=== PATIENT | female | born 1980 | race Caucasian/White ===

== ENCOUNTER 2018-10-01 08:23 | Inpatient (IN) | payer MEDICARE, MEDICAID ==
--- NOTE | 2018-09-28 11:58 | HP ---
AMENDED REPORT NOW INCLUDES COSIGNER DESIGNATION PREOPERATIVE HISTORY AND PHYSICAL: DATE OF ADMISSION/SURGERY: 10/01/18 DATE OF OFFICE VISIT: 09/28/18 ATTENDING SURGEON: Dr. Flash Larkin.* (DICTATED BY JAVIER LUCAS) PROCEDURE: Right total hip replacement. HISTORY OF PRESENT ILLNESS: Jackelin is a 38-year-old female who presents to the clinic with avascular necrosis of the bilateral hips, right greater than left. She has failed conservative measures and has therefore agreed to undergo a right total hip replacement with Dr. Larkin on 10/01/18. PAST MEDICAL HISTORY: Ovarian cancer with mets to the brain, asthma, high cholesterol, anxiety, depression, avascular necrosis of bilateral hips, delusional disorder, obesity. PAST SURGICAL HISTORY: Brain tumor resection [place] [address] Ibarra and a gamma knife radiation in 2014 and 2018 as well as a paracentesis. The patient denies prior complications with anesthesia. MEDICATIONS: 1. Zofran as needed. 2. Lynparza 150 mg twice a day. 3. Morphine sulfate 15 mg one half tab daily. 4. Meloxicam 7.5 mg one daily as needed. 5. Quetiapine fumarate 300 mg one by mouth every day. 6. Docusate sodium 100 mg one by mouth every 12 hours as needed for constipation. ALLERGIES: LATEX, NICKEL FAMILY HISTORY: Positive for AMI in her father and cancer. SOCIAL HISTORY: She is . She lives alone. She is a former smoker. She smoked occasionally from age 19 to 36. She reports occasional alcohol consumption. She denies illegal drug use. REVIEW OF SYSTEMS: A 14-point review of systems was reviewed with the patient. Positive for current complaint, otherwise negative. Denies fever, chills, chest pain, shortness of breath, history of DVT or PE, history of bleeding disorder. PHYSICAL EXAMINATION GENERAL: A 38-year-old, well-developed, well-nourished female, in no acute distress. VITAL SIGNS: Height 72, weight 246, pulse 82, blood pressure 122/68, respiratory rate 18, BMI 33.4. HEENT: Normocephalic, atraumatic. PERRLA. Throat clear. NECK: Supple. PULMONARY: Lungs are clear to auscultation bilaterally. No wheezing, rhonchi, or rales. CARDIO: Regular rate and rhythm. S1, S2. No murmurs, gallops, or rubs. No edema. ABDOMEN: Positive bowel sounds. Soft, nontender. NEUROLOGIC: Alert and oriented x3. Cranial nerves grossly intact. MUSCULOSKELETAL: Right lower extremity: Skin is intact. No warmth or erythema. Tenderness over the groin and the greater trochanteric area. Pain with hip flexion, internal rotation and external rotation, pain with log roll. Calf soft, nontender, +5/5 strength to ankle dorsiflexion and plantar flexion. +2 DP pulse. Sensation is intact to light touch distally. STUDIES: Multi-view x-rays revealed avascular necrosis of the bilateral hips that is progressing. ASSESSMENT AND PLAN: The patient is scheduled to undergo a right total hip replacement with Dr. Larkin on 10/01/18 for treatment of avascular necrosis of the right hip. She does have a noted NICKEL allergy, which Dr. Larkin is aware of and ceramic head will likely be used to avoid the allergy. She will follow up 4 weeks postop for followup and suture removal. JAVIER LUCAS [id number] #: [id number] [facility]
[~2018-10-01 08:23] MED LIST: Buffered Lidocaine 1% SYRIN* 1 ML/SYRINGE INTRADERM ONE; Lactated Ringers 1000 ML Bag* 1,000 ML IV SCH
--- OUTSIDE RECORDS SUMMARY | 2018-10-01 08:27 | XMS REPORT | Continuity of Care Document ---
:1980 External Reference #:[id number] Author Name Ayana Langley Care Team Providers Name Role Phone Vish Carrillo MD Primary Care Physician Unavailable Payers Date Identification Numbers Payment Provider Subscriber Policy Number: [id number] Medicare Anika Xie PayID: [id number] [address] [place] [address] Policy Number: [id number] Medicaid Anika Xie PayID: [id number] [address] [place] [address] PayID: [id number] Medicare D - Drug Plan Anika Xie Expires: 2015 Policy Number: [id number] Medicaid Anika Xie Group Name: 1 1 [address] PayID: [id number] [place] [address] Effective: 2015 Policy Number: [id number] [place] Anika Xie Expires: 2016 Group Name: [id number] [address] PayID: [id number] [place] [address] Advance Directives Description No Information Available Problems Date Description Provider Status Onset: 04/02/2015 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 Active Family History Date Family Member(s) Observation Comments General Heart Disease General Cancer maternal GM had ovarian CA Father due to d/t () malignagncy? Onset: (2012) Father NC Mother 78 Mother No Current Problems First Brother hx unknown First Brother 53 Second Brother 53 Second Brother No Current Problems First Sister Kidney failure? First Sister 48 Social History Type Date Description Comments Sex Unknown Marital Status Lives With Alone renting apartment Occupation Disabled ETOH Use Occasionally consumes 1 drink/week alcohol Recreational Drug Use Denies Drug Use Tobacco Use Start: Unknown Patient is a former 1/2 pack from age End: Unknown smoker 20-37 Smoking Status Reviewed: 09/28/18 Patient is a former 1/2 pack from age smoker 20-37 Exercise Type/Frequency Does not exercise Allergies, Adverse Reactions, Alerts Date Description Reaction Status Severity Comments 04/02/2015 NKDA Active 05/04/2016 Latex Active 09/28/2018 Metal Active 09/28/2018 Nickel Active Medications Medication Date Status Form Strength Qnty SIG Indications Ordering Provider Zofran Active Unknown 000 Lynparza Active Tablets 150mg twice tabs Z85.43 Rodriguez, 000 twice a day 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, 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 Morphine Active Tablets 15mg Unknown Sulfate 000 Meloxicam Active Tablets 7.5mg Patiño, 000 Yuli [facility]- Quetiapine Active Tablets 300mg Unknown Fumarate 000 Docusate Active Tablets 100mg 1 tab every 12 Unknown Sodium 000 hours as needed for constipation Seroquel Hx Tablets 50mg 1 by mouth F31.9 Unknown 000 - every night at bedtime 019 Naproxen Hx Tablets 500mg 1 tablet with Unknown 000 - food by mouth twice a day 019 Tramadol HCL Hx Tablets 50mg 1-2 tablets Unknown 000 - every 6 hours as needed 019 Medications Administered in Office Medication Date Status Form Strength Qnty SIG Indications Ordering Provider No Injection Administered Injection Kwaku Silva MD No Injection Administered Injection MD Julio Wright Administered Injection Kwaku Pennington 40MG MD Julio Fan Administered Injection Kwaku Pennington 40MG Ted Silva MD Immunizations CPT Code Status Date Vaccine Reaction Lot # [id number] Given 05/09/2018 Influenza Virus Vaccine, patient tollerated shot [id number] Quadrivalent, Split, well. No immediate Preservative Free reaction. [id number] Given 09/06/2017 Tdap - [id number] Tetanus/Diptheria/Acellular Pertussis [id number] Given 09/06/2017 Influenza Virus Vaccine, [id number] Quadrivalent, Split, Preservative Free Vital Signs Date Vital Result Comment 09/28/2018 9:23am Height 72 inches 6'0" Weight 246.00 lb Heart Rate 82 /min BP Systolic 122 mmHg BP Diastolic 68 mmHg Respiratory Rate 18 /min Pain Level 3 BMI (Body Mass Index) 33.4 kg/m2 09/19/2018 1:04pm Height 72 inches 6'0" Weight 246.38 lb Heart Rate 92 /min BP Systolic 116 mmHg BP Diastolic 80 mmHg Body Temperature 98.8 F O2 % BldC Oximetry 97 % BMI (Body Mass Index) 33.4 kg/m2 09/05/2018 12:53pm Height 72 inches 6'0" Weight 252.00 lb Heart Rate 88 /min Respiratory Rate 18 /min Pain Level 3 BMI (Body Mass Index) 34.2 kg/m2 07/11/2018 3:16pm Height 72 inches 6'0" Weight 252.00 lb Heart Rate 89 /min BP Systolic 112 mmHg BP Diastolic 82 mmHg O2 % BldC Oximetry 98 % BMI (Body Mass Index) 34.2 kg/m2 06/06/2018 3:08pm Heart Rate 88 /min BP Systolic 132 mmHg BP Diastolic 76 mmHg Respiratory Rate 16 /min Pain Level 4 05/09/2018 2:03pm Height 72 inches 6'0" Weight 250.25 lb Heart Rate 99 /min BP Systolic Sitting 120 mmHg BP Diastolic Sitting 80 mmHg Pain Level 98 BMI (Body Mass Index) 33.9 kg/m2 02/16/2018 3:50pm Height 72 inches 6'0" Weight 266.00 lb Heart Rate 89 /min BP Systolic Sitting 122 mmHg BP Diastolic Sitting 80 mmHg O2 % BldC Oximetry 98 % BMI (Body Mass Index) 36.1 kg/m2 12/20/2017 8:38am Height 72 inches 6'0" Weight 241.00 lb BP Systolic 124 mmHg BP Diastolic 76 mmHg Respiratory Rate 18 /min Body Temperature 97.5 F Pain Level 4 BMI (Body Mass Index) 32.7 kg/m2 12/06/2017 9:50am Height 70 inches 5'10" Weight 251.38 lb Heart Rate 94 /min BP Systolic Sitting 122 mmHg BP Diastolic Sitting 80 mmHg O2 % BldC Oximetry 97 % BMI (Body Mass Index) 36.1 kg/m2 10/04/2017 10:21am Height 70 inches 5'10" Weight 239.50 lb Heart Rate 91 /min BP Systolic 128 mmHg BP Diastolic 84 mmHg Body Temperature 99.1 F O2 % BldC Oximetry 97 % BMI (Body Mass Index) 34.4 kg/m2 09/06/2017 2:19pm Height 70 inches 5'10" Weight 247.00 lb Heart Rate 101 /min BP Systolic 125 mmHg BP Diastolic 82 mmHg Body Temperature 98.5 F O2 % BldC Oximetry 98 % BMI (Body Mass Index) 35.4 kg/m2 07/20/2016 1:26pm Height 71.5 inches 5'11.50" Weight 240.00 lb BP Systolic Sitting 112 mmHg BP Diastolic Sitting 78 mmHg Pain Level 4 BMI (Body Mass Index) 33.0 kg/m2 05/04/2016 9:11am Height 71.5 inches 5'11.50" Weight 240.00 lb Heart Rate 72 /min BP Systolic 115 mmHg BP Diastolic 78 mmHg Pain Level 4 BMI (Body Mass Index) 33.0 kg/m2 04/02/2015 11:20am Height 72 inches 6'0" Weight 218.00 lb Heart Rate 82 /min BP Systolic Sitting 124 mmHg BP Diastolic Sitting 80 mmHg Pain Level 0 BMI (Body Mass Index) 29.6 kg/m2 Results Test Date Facility Test Result H/L Range Note CBC Auto Diff 09/26/2018 [facility] White Blood 6.0 10^3/uL N 3.5-10.[address] [place] [address] [phone] Red Blood Count 4.22 10^6/uL N 4.00-5.40 Hemoglobin 12.9 g/dL N 12.0-16.0 Hematocrit 39 % N 35-47 Mean Corpuscular Volume 92 fL N 80-97 Mean Corpuscular Hemoglobin 31 pg N 27-31 Mean Corpuscular HGB Conc 33 g/dL N 31-36 Red Cell Distribution Width 14 % N 10.5-15 Platelet Count 215 10^3/uL N 150-450 Mean Platelet Volume 8.3 fL N 7.4-10.4 Abs Neutrophils 3.4 10^3/uL N 1.5-7.7 Abs Lymphocytes 2.2 10^3/uL N 1.0-4.8 Abs Monocytes 0.3 10^3/uL N 0-0.8 Abs Eosinophils 0.1 10^3/uL N 0-0.6 Abs Basophils 0 10^3/uL N 0-0.2 Abs Nucleated RBC 0 10^3/uL Granulocyte % 56.8 % Lymphocyte % 35.9 % Monocyte % 5.4 % Eosinophil % 1.3 % Basophil % 0.6 % Nucleated Red Blood Cells % 0.1 Comp Metabolic Panel 09/26/2018 [facility] Sodium 144 mmol/L N 135-[address] [place] [address] [phone] Potassium 3.9 mmol/L N 3.5-5.0 Chloride 110 mmol/L N 101-111 Co2 Carbon Dioxide 27 mmol/L N 22-32 Anion Gap 7 mmol/L N 2-11 Glucose 131 mg/dL High 70-100 Blood Urea Nitrogen 19 mg/dL N 6-24 Creatinine 0.66 mg/dL N 0.51-0.95 BUN/Creatinine Ratio 28.8 High 8-20 Calcium 9.5 mg/dL N 8.6-10.3 Total Protein 6.6 g/dL N 6.4-8.9 Albumin 3.7 g/dL N 3.2-5.2 Globulin 2.9 g/dL N 2-4 Albumin/Globulin Ratio 1.3 N 1-3 Total Bilirubin 0.20 mg/dL N 0.2-1.0 Alkaline Phosphatase 94 U/L N 34-104 Alt 14 U/L N 7-52 Ast 14 U/L N 13-39 Egfr Non- 99.7 >60 Egfr 120.6 >60 1 Laboratory test 09/26/2018 [facility] Cancer Ag 208 U/mL Abnormal <46 [address] ([address]), [place] [address] [phone] Urine Culture And 09/19/2018 [facility] Urine SEE RESULT [address] [place] [address] [phone] Type & Screen 09/19/2018 [facility] Patient A Negative [address] [place] [address] [phone] Antibody Screen NEGATIVE Urinalysis Profile 09/19/2018 [facility] Urine Color Yellow [address] [place] [address] [phone] Urine Appearance Cloudy Urine Specific Massey 1.028 N 1.010-1.030 Urine pH 5.0 N 5-9 Urine Urobilinogen Negative Negative Urine Ketones Negative Negative Urine Protein Negative Negative Urine Leukocytes Negative Negative Urine Blood Negative Negative Urine Nitrite Negative Negative Urine Bilirubin Negative Negative Urine Glucose Negative Negative Comp Metabolic Panel 09/19/2018 [facility] Sodium 141 mmol/L N 135-145 [address] [place] [address] [phone] Potassium 3.9 mmol/L N 3.5-5.0 Chloride 106 mmol/L N 101-111 Co2 Carbon Dioxide 26 mmol/L N 22-32 Anion Gap 9 mmol/L N 2-11 Glucose 91 mg/dL N 70-100 Blood Urea Nitrogen 18 mg/dL N 6-24 Creatinine 0.72 mg/dL N 0.51-0.95 BUN/Creatinine Ratio 25.0 High 8-20 Calcium 9.2 mg/dL N 8.6-10.3 Total Protein 6.3 g/dL Low 6.4-8.9 Albumin 3.8 g/dL N 3.2-5.2 Globulin 2.5 g/dL N 2-4 Albumin/Globulin Ratio 1.5 N 1-3 Total Bilirubin 0.30 mg/dL N 0.2-1.0 Alkaline Phosphatase 98 U/L N 34-104 Alt 15 U/L N 7-52 Ast 13 U/L N 13-39 Egfr Non- 90.2 >60 Egfr 109.1 >60 4 CBC Auto Diff 09/19/2018 [facility] White Blood 5.9 10^3/uL N 3.5-10.[address] [place] [address] [phone] Red Blood Count 4.11 10^6/uL N 4.00-5.40 Hemoglobin 12.8 g/dL N 12.0-16.0 Hematocrit 38 % N 35-47 Mean Corpuscular Volume 93 fL N 80-97 Mean Corpuscular Hemoglobin 31 pg N 27-31 Mean Corpuscular HGB Conc 33 g/dL N 31-36 Red Cell Distribution Width 14 % N 10.5-15 Platelet Count 218 10^3/uL N 150-450 Mean Platelet Volume 8.3 fL N 7.4-10.4 Abs Neutrophils 2.6 10^3/uL N 1.5-7.7 Abs Lymphocytes 2.7 10^3/uL N 1.0-4.8 Abs Monocytes 0.4 10^3/uL N 0-0.8 Abs Eosinophils 0.1 10^3/uL N 0-0.6 Abs Basophils 0.1 10^3/uL N 0-0.2 Abs Nucleated RBC 0 10^3/uL Granulocyte % 44.8 % Lymphocyte % 45.9 % Monocyte % 6.2 % Eosinophil % 2.1 % Basophil % 1.0 % Nucleated Red Blood Cells % 0.1 Laboratory test 09/19/2018 [facility] Partial 27.7 seconds N 26.0-36.[address] [place] [address] PTT [phone] Inr/Protime 09/19/2018 [facility] Inr 0.95 N 0.77-1.[address] [place] [address] [phone] CBC Auto Diff 08/15/2018 [facility] White Blood 5.9 10^3/uL N 3.5-10.[address] [place] [address] [phone] Red Blood Count 4.18 10^6/uL N 4.00-5.40 Hemoglobin 12.8 g/dL N 12.0-16.0 Hematocrit 38 % N 35-47 Mean Corpuscular Volume 91 fL N 80-97 Mean Corpuscular Hemoglobin 31 pg N 27-31 Mean Corpuscular HGB Conc 33 g/dL N 31-36 Red Cell Distribution Width 15 % N 10.5-15 Platelet Count 272 10^3/uL N 150-450 Mean Platelet Volume 7.9 fL N 7.4-10.4 Abs Neutrophils 3.1 10^3/uL N 1.5-7.7 Abs Lymphocytes 2.4 10^3/uL N 1.0-4.8 Abs Monocytes 0.3 10^3/uL N 0-0.8 Abs Eosinophils 0.1 10^3/uL N 0-0.6 Abs Basophils 0.1 10^3/uL N 0-0.2 Abs Nucleated RBC 0 10^3/uL Granulocyte % 51.8 % Lymphocyte % 40.1 % Monocyte % 5.5 % Eosinophil % 1.6 % Basophil % 1.0 % Nucleated Red Blood Cells % 0.1 Comp Metabolic Panel 08/15/2018 [facility] Sodium 138 mmol/L N 135-145 [address] [place] [address] [phone] Potassium 4.0 mmol/L N 3.5-5.0 Chloride 105 mmol/L N 101-111 Co2 Carbon Dioxide 27 mmol/L N 22-32 Anion Gap 6 mmol/L N 2-11 Glucose 99 mg/dL N 70-100 Blood Urea Nitrogen 24 mg/dL N 6-24 Creatinine 0.62 mg/dL N 0.51-0.95 BUN/Creatinine Ratio 38.7 High 8-20 Calcium 9.3 mg/dL N 8.6-10.3 Total Protein 6.5 g/dL N 6.4-8.9 Albumin 3.4 g/dL N 3.2-5.2 Globulin 3.1 g/dL N 2-4 Albumin/Globulin Ratio 1.1 N 1-3 Total Bilirubin 0.30 mg/dL N 0.2-1.0 Alkaline Phosphatase 110 U/L High 34-104 Alt 15 U/L N 7-52 Ast 13 U/L N 13-39 Egfr Non- 107.2 >60 Egfr 129.7 >60 5 HIV 1/2 AB 08/15/2018 [facility] HIV 1 2 Nonreactive Nonreactive 6 Evaluation 101 [facility] Antibody [place], [place] [id number] [phone] Laboratory 08/15/2018 [facility] Cancer Ag 234 U/mL Abnormal < 46 7 test finding 101 [facility] ([address]), [place] [address] S [phone] CBC Auto 07/09/2018 [facility] White 4.7 10^3/uL N 3.5-10.8 Diff 101 [facility] [place] [address] Count [phone] Red Blood Count 4.16 10^6/uL N 4.00-5.40 Hemoglobin 12.2 g/dL N 12.0-16.0 Hematocrit 37 % N 35-47 Mean Corpuscular Volume 89 fL N 80-97 Mean Corpuscular Hemoglobin 30 pg N 27-31 Mean Corpuscular HGB Conc 33 g/dL N 31-36 Red Cell Distribution Width 16 % High 10.5-15 Platelet Count 225 10^3/uL N 150-450 Mean Platelet Volume 7.8 fL N 7.4-10.4 Abs Neutrophils 2.4 10^3/uL N 1.5-7.7 Abs Lymphocytes 1.9 10^3/uL N 1.0-4.8 Abs Monocytes 0.2 10^3/uL N 0-0.8 Abs Eosinophils 0.1 10^3/uL N 0-0.6 Abs Basophils 0 10^3/uL N 0-0.2 Abs Nucleated RBC 0 10^3/uL Granulocyte % 51.7 % Lymphocyte % 40.5 % Monocyte % 4.8 % Eosinophil % 2.4 % Basophil % 0.6 % Nucleated Red Blood Cells % 0.1 Laboratory test 07/09/2018 [facility] [place] [address] 192.2 U/mL High 0 -35 [address] ([place] [address] Cancer Ag) [phone] Comp Metabolic 07/09/2018 [facility] Sodium 141 mmol/L N 135- [address] [place] [address] [phone] Potassium 3.8 mmol/L N 3.5-5.0 Chloride 106 mmol/L N 101-111 Co2 Carbon Dioxide 28 mmol/L N 22-32 Anion Gap 7 mmol/L N 2-11 Glucose 112 mg/dL High 70-100 Blood Urea Nitrogen 21 mg/dL N 6-24 Creatinine 0.81 mg/dL N 0.51-0.95 BUN/Creatinine Ratio 25.9 High 8-20 Calcium 9.3 mg/dL N 8.6-10.3 Total Protein 6.2 g/dL Low 6.4-8.9 Albumin 3.5 g/dL N 3.2-5.2 Globulin 2.7 g/dL N 2-4 Albumin/Globulin Ratio 1.3 N 1-3 Total Bilirubin 0.40 mg/dL N 0.2-1.0 Alkaline Phosphatase 95 U/L N 34-104 Alt 15 U/L N 7-52 Ast 14 U/L N 13-39 Egfr Non- 78.7 >60 Egfr 95.2 >60 9 CBC Auto Diff 06/15/2018 [facility] White Blood 6.8 10^3/uL N 3.5-10.[address] [place] [address] [phone] Red Blood Count 4.46 10^6/uL N 4.00-5.40 Hemoglobin 13.4 g/dL N 12.0-16.0 Hematocrit 39 % N 35-47 Mean Corpuscular Volume 87 fL N 80-97 Mean Corpuscular Hemoglobin 30 pg N 27-31 Mean Corpuscular HGB Conc 35 g/dL N 31-36 Red Cell Distribution Width 15 % N 10.5-15 Platelet Count 248 10^3/uL N 150-450 Mean Platelet Volume 7.8 fL N 7.4-10.4 Abs Neutrophils 3.3 10^3/uL N 1.5-7.7 Abs Lymphocytes 2.9 10^3/uL N 1.0-4.8 Abs Monocytes 0.4 10^3/uL N 0-0.8 Abs Eosinophils 0.1 10^3/uL N 0-0.6 Abs Basophils 0.1 10^3/uL N 0-0.2 Abs Nucleated RBC 0 10^3/uL Granulocyte % 47.8 % N 38-83 Lymphocyte % 42.6 % N 25-47 Monocyte % 6.4 % N 0-7 Eosinophil % 2.2 % N 0-6 Basophil % 1.0 % N 0-2 Nucleated Red Blood Cells % 0.2 Comp Metabolic Panel 06/15/2018 [facility] Sodium 141 mmol/L N 135-[address] [place] [address] [phone] Potassium 4.3 mmol/L N 3.5-5.0 Chloride 105 mmol/L N 101-111 Co2 Carbon Dioxide 27 mmol/L N 22-32 Anion Gap 9 mmol/L N 2-11 Glucose 97 mg/dL N 70-100 Blood Urea Nitrogen 15 mg/dL N 6-24 Creatinine 0.71 mg/dL N 0.51-0.95 BUN/Creatinine Ratio 21.1 High 8-20 Calcium 9.5 mg/dL N 8.6-10.3 Total Protein 6.7 g/dL N 6.4-8.9 Albumin 3.7 g/dL N 3.2-5.2 Globulin 3.0 g/dL N 2-4 Albumin/Globulin Ratio 1.2 N 1-3 Total Bilirubin 0.30 mg/dL N 0.2-1.0 Alkaline Phosphatase 109 U/L High 34-104 Alt 16 U/L N 7-52 Ast 14 U/L N 13-39 Egfr Non- 91.6 >60 Egfr 110.9 >60 10 Laboratory test 06/15/2018 [facility] [place] [address] 211.5 U/mL High 0 -35 [address] ([place] [address] Cancer Ag) [phone] CBC Auto Diff 04/10/2018 [facility] White Blood 6.6 N 3.5- 10.[address] Count 10^3/[place] [address] [phone] Red Blood Count 4.24 10^6/uL N 4.00-5.40 Hemoglobin 12.8 g/dL N 12.0-16.0 Hematocrit 38 % N 35-47 Mean Corpuscular Volume 89 fL N 80-97 Mean Corpuscular Hemoglobin 30 pg N 27-31 Mean Corpuscular HGB Conc 34 g/dL N 31-36 Red Cell Distribution Width 13 % N 10.5-15 Platelet Count 268 10^3/uL N 150-450 Mean Platelet Volume 8.2 um3 N 7.4-10.4 Abs Neutrophils 3.8 10^3/uL N 1.5-7.7 Abs Lymphocytes 2.2 10^3/uL N 1.0-4.8 Abs Monocytes 0.5 10^3/uL N 0-0.8 Abs Eosinophils 0.1 10^3/uL N 0-0.6 Abs Basophils 0.1 10^3/uL N 0-0.2 Abs Nucleated RBC 0 10^3/uL Granulocyte % 56.8 % N 38-83 Lymphocyte % 32.5 % N 25-47 Monocyte % 7.9 % High 0-7 Eosinophil % 2.0 % N 0-6 Basophil % 0.8 % N 0-2 Nucleated Red Blood Cells % 0.4 Comp Metabolic Panel 04/10/2018 [facility] Sodium 138 mmol/L N 135-[address] [place] [address] [phone] Potassium 3.8 mmol/L N 3.5-5.0 Chloride 102 mmol/L N 101-111 Co2 Carbon Dioxide 28 mmol/L N 22-32 Anion Gap 8 mmol/L N 2-11 Glucose 127 mg/dL High 70-100 Blood Urea Nitrogen 20 mg/dL N 6-24 Creatinine 0.69 mg/dL N 0.51-0.95 BUN/Creatinine Ratio 29.0 High 8-20 Calcium 9.9 mg/dL N 8.6-10.3 Total Protein 6.8 g/dL N 6.4-8.9 Albumin 3.7 g/dL N 3.2-5.2 Globulin 3.1 g/dL N 2-4 Albumin/Globulin Ratio 1.2 N 1-3 Total Bilirubin 0.40 mg/dL N 0.2-1.0 Alkaline Phosphatase 81 U/L N 34-104 Alt 13 U/L N 7-52 Ast 14 U/L N 13-39 Egfr Non- 94.7 >60 Egfr 114.6 >60 12 Laboratory test 04/10/2018 [facility] [place] 125 209.3 U/mL High 0 -35 [address] ([place]var[place] [id number] Cancer Ag) [phone] CBC Auto Diff 03/30/2018 [facility] White Blood 5.2 N 3.5- 10.[address] Count 10^3/[place] [address] [phone] Red Blood Count 4.11 10^6/uL N 4.00-5.40 Hemoglobin 12.5 g/dL N 12.0-16.0 Hematocrit 37 % N 35-47 Mean Corpuscular Volume 89 fL N 80-97 Mean Corpuscular Hemoglobin 30 pg N 27-31 Mean Corpuscular HGB Conc 34 g/dL N 31-36 Red Cell Distribution Width 14 % N 10.5-15 Platelet Count 213 10^3/uL N 150-450 Mean Platelet Volume 8.4 um3 N 7.4-10.4 Abs Neutrophils 2.8 10^3/uL N 1.5-7.7 Abs Lymphocytes 1.8 10^3/uL N 1.0-4.8 Abs Monocytes 0.4 10^3/uL N 0-0.8 Abs Eosinophils 0.1 10^3/uL N 0-0.6 Abs Basophils 0 10^3/uL N 0-0.2 Abs Nucleated RBC 0 10^3/uL Granulocyte % 53.8 % N 38-83 Lymphocyte % 34.3 % N 25-47 Monocyte % 8.3 % High 0-7 Eosinophil % 2.7 % N 0-6 Basophil % 0.9 % N 0-2 Nucleated Red Blood Cells % 0.1 Comp Metabolic Panel 03/30/2018 [facility] Sodium 138 mmol/L N 135-[address] [place] [address] [phone] Potassium 3.9 mmol/L N 3.5-5.0 Chloride 104 mmol/L N 101-111 Co2 Carbon Dioxide 27 mmol/L N 22-32 Anion Gap 7 mmol/L N 2-11 Glucose 113 mg/dL High 70-100 Blood Urea Nitrogen 12 mg/dL N 6-24 Creatinine 0.76 mg/dL N 0.51-0.95 BUN/Creatinine Ratio 15.8 N 8-20 Calcium 9.0 mg/dL N 8.6-10.3 Total Protein 5.9 g/dL Low 6.4-8.9 Albumin 3.5 g/dL N 3.2-5.2 Globulin 2.4 g/dL N 2-4 Albumin/Globulin Ratio 1.5 N 1-3 Total Bilirubin 0.50 mg/dL N 0.2-1.0 Alkaline Phosphatase 80 U/L N 34-104 Alt 20 U/L N 7-52 Ast 19 U/L N 13-39 Egfr Non- 84.7 >60 Egfr 102.5 >60 14 Laboratory test 03/30/2018 [facility] [place] 125 164.3 U/mL High 0 -35 [address] ([place] [address] Cancer Ag) [phone] CBC Auto Diff 01/19/2018 [facility] White Blood 8.6 N 3.5- 10.[address] Count 10^3/[place] [address] [phone] Red Blood Count 4.17 10^6/uL N 4.00-5.40 Hemoglobin 13.2 g/dL N 12.0-16.0 Hematocrit 40 % N 35-47 Mean Corpuscular Volume 95 fL N 80-97 Mean Corpuscular Hemoglobin 32 pg High 27-31 Mean Corpuscular HGB Conc 33 g/dL N 31-36 Red Cell Distribution Width 16 % High 10.5-15 Platelet Count 222 10^3/uL N 150-450 Mean Platelet Volume 7.1 um3 Low 7.4-10.4 Abs Neutrophils 6.1 10^3/uL N 1.5-7.7 Abs Lymphocytes 2.2 10^3/uL N 1.0-4.8 Abs Monocytes 0.3 10^3/uL N 0-0.8 Abs Eosinophils 0 10^3/uL N 0-0.6 Abs Basophils 0.1 10^3/uL N 0-0.2 Abs Nucleated RBC 0 10^3/uL Granulocyte % 70.7 % N 38-83 Lymphocyte % 25.4 % N 25-47 Monocyte % 3.1 % N 0-7 Eosinophil % 0.2 % N 0-6 Basophil % 0.6 % N 0-2 Nucleated Red Blood Cells % 0.1 Laboratory test 01/19/2018 [facility] [place] 125 176.3 U/mL High 0 -35 [address] ([place] [address] Cancer Ag) [phone] Comp Metabolic 01/19/2018 [facility] Sodium 140 mmol/L N 135- [address] [place], [place] [id number] [phone] Potassium 4.5 mmol/L N 3.5-5.0 Chloride 106 mmol/L N 101-111 Co2 Carbon Dioxide 26 mmol/L N 22-32 Anion Gap 8 mmol/L N 2-11 Glucose 123 mg/dL High 70-100 Blood Urea Nitrogen 31 mg/dL High 6-24 Creatinine 0.70 mg/dL N 0.51-0.95 BUN/Creatinine Ratio 44.3 High 8-20 Calcium 9.2 mg/dL N 8.6-10.3 Total Protein 6.6 g/dL N 6.4-8.9 Albumin 3.5 g/dL N 3.2-5.2 Globulin 3.1 g/dL N 2-4 Albumin/Globulin Ratio 1.1 N 1-3 Total Bilirubin 0.30 mg/dL N 0.2-1.0 Alkaline Phosphatase 65 U/L N 34-104 Alt 23 U/L N 7-52 Ast 11 U/L Low 13-39 Egfr Non- 93.2 >60 Egfr 112.7 >60 17 Comp Metabolic Panel 11/13/2017 [facility] Sodium 138 mmol/L Low 139-[address] [place] [address] [phone] Potassium 4.2 mmol/L N 3.5-5.0 Chloride 104 mmol/L N 101-111 Co2 Carbon Dioxide 28 mmol/L N 22-32 Anion Gap 6 mmol/L N 2-11 Glucose 96 mg/dL N 70-100 Blood Urea Nitrogen 17 mg/dL N 6-24 Creatinine 0.83 mg/dL N 0.51-0.95 BUN/Creatinine Ratio 20.5 High 8-20 Calcium 9.1 mg/dL N 8.6-10.3 Total Protein 6.0 g/dL Low 6.4-8.9 Albumin 3.4 g/dL N 3.2-5.2 Globulin 2.6 g/dL N 2-4 Albumin/Globulin Ratio 1.3 N 1-3 Total Bilirubin 0.30 mg/dL N 0.2-1.0 Alkaline Phosphatase 74 U/L N 34-104 Alt 18 U/L N 7-52 Ast 15 U/L N 13-39 Egfr Non- 76.9 >60 Egfr 98.9 >60 18 Laboratory test 11/13/2017 [facility] [place] 125 131.2 U/mL High 0 -35 [address] ([place] [address] Cancer Ag) [phone] CBC Auto Diff 11/13/2017 [facility] White Blood 4.9 N 3.5- 10.[address] Count 10^3/uL [place], [place] [id number] [phone] Red Blood Count 3.78 10^6/uL Low 4.0-5.4 Hemoglobin 11.6 g/dL Low 12.0-16.0 Hematocrit 35 % N 35-47 Mean Corpuscular Volume 91 fL N 80-97 Mean Corpuscular Hemoglobin 31 pg N 27-31 Mean Corpuscular HGB Conc 34 g/dL N 31-36 Red Cell Distribution Width 15 % N 10.5-15 Platelet Count 233 10^3/uL N 150-450 Mean Platelet Volume 7.8 um3 N 7.4-10.4 Abs Neutrophils 2.7 10^3/uL N 1.5-7.7 Abs Lymphocytes 1.8 10^3/uL N 1.0-4.8 Abs Monocytes 0.3 10^3/uL N 0-0.8 Abs Eosinophils 0.1 10^3/uL N 0-0.6 Abs Basophils 0 10^3/uL N 0-0.2 Abs Nucleated RBC 0 10^3/uL Granulocyte % 55.3 % N 38-83 Lymphocyte % 36.4 % N 25-47 Monocyte % 5.6 % N 0-7 Eosinophil % 1.9 % N 0-6 Basophil % 0.8 % N 0-2 Nucleated Red Blood Cells % 0.1 Lipid Profile 09/12/2017 [facility] Triglycerides 192 mg/dL 20 (Trig/Chol/HDL) [address] [place] [address] [phone] Cholesterol 214 mg/dL 21 HDL Cholesterol 51.9 mg/dL 22 LDL Cholesterol 124 mg/dL 23 Comp Metabolic Panel 09/12/2017 [facility] Sodium 138 mmol/L N 133-[address] [place] [address] [phone] Potassium 4.3 mmol/L N 3.5-5.0 Chloride 105 mmol/L N 101-111 Co2 Carbon Dioxide 24 mmol/L N 22-32 Anion Gap 9 mmol/L N 2-11 Glucose 88 mg/dL N 70-100 Blood Urea Nitrogen 16 mg/dL N 6-24 Creatinine 0.76 mg/dL N 0.51-0.95 BUN/Creatinine Ratio 21.1 High 8-20 Calcium 9.4 mg/dL N 8.6-10.3 Total Protein 6.2 g/dL Low 6.4-8.9 Albumin 3.7 g/dL N 3.2-5.2 Globulin 2.5 g/dL N 2-4 Albumin/Globulin Ratio 1.5 N 1-3 Total Bilirubin 0.40 mg/dL N 0.2-1.0 Alkaline Phosphatase 81 U/L N 34-104 Alt 18 U/L N 7-52 Ast 18 U/L N 13-39 Egfr Non- 85.2 >60 Egfr 109.5 >60 24 CBC Auto Diff 09/12/2017 [facility] White Blood 5.9 10^3/uL N 3.5-10.[address] [place] [address] [phone] Red Blood Count 4.01 10^6/uL N 4.0-5.4 Hemoglobin 12.5 g/dL N 12.0-16.0 Hematocrit 36 % N 35-47 Mean Corpuscular Volume 91 fL N 80-97 Mean Corpuscular Hemoglobin 31 pg N 27-31 Mean Corpuscular HGB Conc 34 g/dL N 31-36 Red Cell Distribution Width 15 % N 10.5-15 Platelet Count 254 10^3/uL N 150-450 Mean Platelet Volume 8 um3 N 7.4-10.4 Abs Neutrophils 2.6 10^3/uL N 1.5-7.7 Abs Lymphocytes 2.7 10^3/uL N 1.0-4.8 Abs Monocytes 0.4 10^3/uL N 0-0.8 Abs Eosinophils 0.1 10^3/uL N 0-0.6 Abs Basophils 0.1 10^3/uL N 0-0.2 Abs Nucleated RBC 0 10^3/uL Granulocyte % 44.0 % N 38-83 Lymphocyte % 46.1 % N 25-47 Monocyte % 6.7 % N 1-9 Eosinophil % 2.3 % N 0-6 Basophil % 0.9 % N 0-2 Nucleated Red Blood Cells % 0.1 Laboratory test 09/12/2017 [facility] TSH (Thyroid 3.77 mcIU/mL N 0.34-5.[address] Stim Horm) [place] [address] [phone] Vitamin B12 And 09/12/2017 [facility] Vitamin B12 408 pg/mL N 180-914 25 Folate Serum [address] [place] [address] [phone] Folic Acid (Folate) 18.14 ng/mL >3.99 1 Because ethnic data is not always readily available, this report includes an eGFR for both -Americans and non- Americans. The National Kidney Disease Education Program (NKDEP) does not endorse the use of the MDRD equation for patients that are not between the ages of 18 and 70, are , have extremes of body size, muscle mass, or nutritional status, or are non- or non-. According to the National Kidney Foundation, irrespective of diagnosis, the stage of the disease is based on the level of kidney function: Stage Description GFR(mL/min/1.73 m(2)) 1 Kidney damage with normal or decreased GFR 90 2 Kidney damage with mild decrease in GFR 60-89 3 Moderate decrease in GFR 30-59 4 Severe decrease in GFR 15-29 5 Kidney failure <15 (or dialysis) 2 ADDITIONAL INFORMATION The testing method is an electrochemiluminescence assay manufactured by [employer] and performed on the Lev system. Values obtained with different assay methods or kits may be different and cannot be used interchangeably. Test results cannot be interpreted as absolute evidence for the presence or absence of malignant disease. Test Performed by: [facility] [employer] [address] [place] [address] 3 SEE RESULT BELOW Name: ANIKA XIE : [address]: Hamilton Ochoa NP Acct: [id number] Unit: [id number] AGE: 38 Location: LAB Re09/19/18 SEX: F Status: REG REF SPEC: [id number] KONRAD: 09/19/18-[address]: Flash Larkin MD REQ: [id number] RECD: 09/19/18029 STATUS: NAOMI FISHER DR: Hamilton Ochoa 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 _ SOURCE: URINE SPDESC: ORDERED: Urine Culture QUERIES: Urine Source: Clean Catch Procedure Result Reported Site Urine Culture Final 09/21/18- 1208 ML No growth of clinically significant organisms * ML - Main Lab . END OF REPORT DEPARTMENT OF PATHOLOGY, [address] [place] [address] Michael Cardona M.D. Director [facility] # [id number] 4 Because ethnic data is not always readily available, this report includes an eGFR for both -Americans and non- Americans. The National Kidney Disease Education Program (NKDEP) does not endorse the use of the MDRD equation for patients that are not between the ages of 18 and 70, are , have extremes of body size, muscle mass, or nutritional status, or are non- or non-. According to the National Kidney Foundation, irrespective of diagnosis, the stage of the disease is based on the level of kidney function: Stage Description GFR(mL/min/1.73 m(2)) 1 Kidney damage with normal or decreased GFR 90 2 Kidney damage with mild decrease in GFR 60-89 3 Moderate decrease in GFR 30-59 4 Severe decrease in GFR 15-29 5 Kidney failure <15 (or dialysis) 5 Because ethnic data is not always readily available, this report includes an eGFR for both -Americans and non- Americans. The National Kidney Disease Education Program (NKDEP) does not endorse the use of the MDRD equation for patients that are not between the ages of 18 and 70, are , have extremes of body size, muscle mass, or nutritional status, or are non- or non-. According to the National Kidney Foundation, irrespective of diagnosis, the stage of the disease is based on the level of kidney function: Stage Description GFR(mL/min/1.73 m(2)) 1 Kidney damage with normal or decreased GFR 90 2 Kidney damage with mild decrease in GFR 60-89 3 Moderate decrease in GFR 30-59 4 Severe decrease in GFR 15-29 5 Kidney failure <15 (or dialysis) 6 It is recognized that currently available assays for the detection of antibodies to HIV-1 and/or HIV-2 may not detect all infected individuals. HIV antibodies may be undetectable in some stages of the infection and in some clinical conditions. The performance of this assay has not been established for populations of infants or children. Assayed by Chemiluminescence Microparticle Immunoassay on the Siemens Advia Centaur CP. Values obtained with different methods or kits cannot be used interchangeably.The diagnostic specificity of the [employer] Centaur 1/O/2 Enhanced assay in the low risk population was 99.90% (6052/6058) with a 95% confidence interval of 99.78 to 99.96%. 7 ADDITIONAL INFORMATION The testing method is an electrochemiluminescence assay manufactured by [employer] and performed on the Lev system. Values obtained with different assay methods or kits may be different and cannot be used interchangeably. Test results cannot be interpreted as absolute evidence for the presence or absence of malignant disease. Test Performed by: [facility] [address] [place] [address] 8 Instrument used is [employer] DXI 600. The assay is a two-site immunoenzymatic "sandwich" assay. Do not interpret CA125 levels as absolute evidence of the presence or the absence of malignant disease. Use in conjunction with information from the clinical evaluation of the patient and other diagnostic procedures. Values obtained with different assay methods cannot be used interchangeably. 9 Because ethnic data is not always readily available, this report includes an eGFR for both -Americans and non- Americans. The National Kidney Disease Education Program (NKDEP) does not endorse the use of the MDRD equation for patients that are not between the ages of 18 and 70, are , have extremes of body size, muscle mass, or nutritional status, or are non- or non-. According to the National Kidney Foundation, irrespective of diagnosis, the stage of the disease is based on the level of kidney function: Stage Description GFR(mL/min/1.73 m(2)) 1 Kidney damage with normal or decreased GFR 90 2 Kidney damage with mild decrease in GFR 60-89 3 Moderate decrease in GFR 30-59 4 Severe decrease in GFR 15-29 5 Kidney failure <15 (or dialysis) 10 Because ethnic data is not always readily available, this report includes an eGFR for both -Americans and non- Americans. The National Kidney Disease Education Program (NKDEP) does not endorse the use of the MDRD equation for patients that are not between the ages of 18 and 70, are , have extremes of body size, muscle mass, or nutritional status, or are non- or non-. According to the National Kidney Foundation, irrespective of diagnosis, the stage of the disease is based on the level of kidney function: Stage Description GFR(mL/min/1.73 m(2)) 1 Kidney damage with normal or decreased GFR 90 2 Kidney damage with mild decrease in GFR 60-89 3 Moderate decrease in GFR 30-59 4 Severe decrease in GFR 15-29 5 Kidney failure <15 (or dialysis) 11 Instrument used is [employer] John DXI 600. The assay is a two-site immunoenzymatic "sandwich" assay. Do not interpret CA125 levels as absolute evidence of the presence or the absence of malignant disease. Use in conjunction with information from the clinical evaluation of the patient and other diagnostic procedures. Values obtained with different assay methods cannot be used interchangeably. 12 Because ethnic data is not always readily available, this report includes an eGFR for both -Americans and non- Americans. The National Kidney Disease Education Program (NKDEP) does not endorse the use of the MDRD equation for patients that are not between the ages of 18 and 70, are , have extremes of body size, muscle mass, or nutritional status, or are non- or non-. According to the National Kidney Foundation, irrespective of diagnosis, the stage of the disease is based on the level of kidney function: Stage Description GFR(mL/min/1.73 m(2)) 1 Kidney damage with normal or decreased GFR 90 2 Kidney damage with mild decrease in GFR 60-89 3 Moderate decrease in GFR 30-59 4 Severe decrease in GFR 15-29 5 Kidney failure <15 (or dialysis) 13 Instrument used is [employer] DXI 600. The assay is a two-site immunoenzymatic "sandwich" assay. Do not interpret CA125 levels as absolute evidence of the presence or the absence of malignant disease. Use in conjunction with information from the clinical evaluation of the patient and other diagnostic procedures. Values obtained with different assay methods cannot be used interchangeably. 14 Because ethnic data is not always readily available, this report includes an eGFR for both -Americans and non- Americans. The National Kidney Disease Education Program (NKDEP) does not endorse the use of the MDRD equation for patients that are not between the ages of 18 and 70, are , have extremes of body size, muscle mass, or nutritional status, or are non- or non-. According to the National Kidney Foundation, irrespective of diagnosis, the stage of the disease is based on the level of kidney function: Stage Description GFR(mL/min/1.73 m(2)) 1 Kidney damage with normal or decreased GFR 90 2 Kidney damage with mild decrease in GFR 60-89 3 Moderate decrease in GFR 30-59 4 Severe decrease in GFR 15-29 5 Kidney failure <15 (or dialysis) 15 Instrument used is [employer] DXI 600. The assay is a two-site immunoenzymatic "sandwich" assay. Do not interpret CA125 levels as absolute evidence of the presence or the absence of malignant disease. Use in conjunction with information from the clinical evaluation of the patient and other diagnostic procedures. Values obtained with different assay methods cannot be used interchangeably. 16 Instrument used is [employer] DXI 600. The assay is a two-site immunoenzymatic "sandwich" assay. Do not interpret CA125 levels as absolute evidence of the presence or the absence of malignant disease. Use in conjunction with information from the clinical evaluation of the patient and other diagnostic procedures. Values obtained with different assay methods cannot be used interchangeably. 17 Because ethnic data is not always readily available, this report includes an eGFR for both -Americans and non- Americans. The National Kidney Disease Education Program (NKDEP) does not endorse the use of the MDRD equation for patients that are not between the ages of 18 and 70, are , have extremes of body size, muscle mass, or nutritional status, or are non- or non-. According to the National Kidney Foundation, irrespective of diagnosis, the stage of the disease is based on the level of kidney function: Stage Description GFR(mL/min/1.73 m(2)) 1 Kidney damage with normal or decreased GFR 90 2 Kidney damage with mild decrease in GFR 60-89 3 Moderate decrease in GFR 30-59 4 Severe decrease in GFR 15-29 5 Kidney failure <15 (or dialysis) 18 Because ethnic data is not always readily available, this report includes an eGFR for both -Americans and non- Americans. The National Kidney Disease Education Program (NKDEP) does not endorse the use of the MDRD equation for patients that are not between the ages of 18 and 70, are , have extremes of body size, muscle mass, or nutritional status, or are non- or non-. According to the National Kidney Foundation, irrespective of diagnosis, the stage of the disease is based on the level of kidney function: Stage Description GFR(mL/min/1.73 m(2)) 1 Kidney damage with normal or decreased GFR 90 2 Kidney damage with mild decrease in GFR 60-89 3 Moderate decrease in GFR 30-59 4 Severe decrease in GFR 15-29 5 Kidney failure <15 (or dialysis) 19 Instrument used is [employer] John DXI 600. The assay is a two-site immunoenzymatic "sandwich" assay. Do not interpret CA125 levels as absolute evidence of the presence or the absence of malignant disease. Use in conjunction with information from the clinical evaluation of the patient and other diagnostic procedures. Values obtained with different assay methods cannot be used interchangeably. 20 Desirable: <150 Borderline High: 150-199 High: 200-499 Very High: >500 21 Desirable: <200 Borderline High: 200-239 High: >239 22 Low: <40 Desirable: 40-60 High: >60 23 Desirable: <100 Near Optimal: 100-129 Borderline High: 130-159 High: 160-189 Very High: >189 24 Because ethnic data is not always readily available, this report includes an eGFR for both -Americans and non- Americans. The National Kidney Disease Education Program (NKDEP) does not endorse the use of the MDRD equation for patients that are not between the ages of 18 and 70, are , have extremes of body size, muscle mass, or nutritional status, or are non- or non-. According to the National Kidney Foundation, irrespective of diagnosis, the stage of the disease is based on the level of kidney function: Stage Description GFR(mL/min/1.73 m(2)) 1 Kidney damage with normal or decreased GFR 90 2 Kidney damage with mild decrease in GFR 60-89 3 Moderate decrease in GFR 30-59 4 Severe decrease in GFR 15-29 5 Kidney failure <15 (or dialysis) 25 Normal Range 180 to 914 Indeterminate Range 145 to 180 Deficient Range <145 Procedures Date Code Description Status 09/19/2018 07815 EKG Tracing & Interpretation Completed 06/06/2018 61155 Inj/Aspir Major JT Or Bursa W/ US Completed 10/23/2015 77448 Fluoroscopic Guidance For Cent Completed 10/23/2015 42460 Ultrasound Guidance For Vascular Access Completed 10/23/2015 39392 Insertion Tunneled Cent Venous Cathr W Subcut Port 5 Yrs Completed Or Oldr 02/21/2015 29112 Twist Drill Holes For Subdural,Intracerebral Or Completed Ventricular Punct 02/13/2015 31957 Craniectomy Exc Brain Tumr Infratentorial Or Posterior Completed Fossa 02/09/2015 54670 Craniectomy Trephination, Bone Flap For Exc Brain Tumor Completed 02/09/2015 72784 Twist Drill Holes For Subdural,Intracerebral Or Completed Ventricular Punct Encounters Type Date Location Provider Dx Diagnosis Office Visit 09/19/2018 [facility] Internal Hamilton Ochoa M87.051 Idiopathic aseptic 1:20p Medicine - [place] PRODUCTION SUPPORT ENGINEER necrosis of right Rd femur Z85.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 aseptic necrosis C.M.A. 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 E66.9 Obesity, unspecified F31.9 Bipolar disorder, unspecified Office Visit 05/09/2018 2:20p [facility] Internal Hamilton Ochoa, Z85.43 Personal history Medicine - [place] PRODUCTION SUPPORT ENGINEER of malignant Rd neoplasm of ovary E66.9 Obesity, unspecified M87.059 Idiopathic aseptic necrosis of unspecified femur F31.9 Bipolar disorder, unspecified M85.9 Disorder of bone density and structure, unspecified Z23 Encounter for immunization 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 aseptic necrosis C.M.A. 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 Office Visit 10/04/2017 10:40a [facility] Internal Zsofia Don, E66.9 Obesity, Medicine - [place] PRODUCTION SUPPORT ENGINEER unspecified Rd E78.00 Pure hypercholesterolemia, unspecified M25.512 Pain in left shoulder M87.051 Idiopathic aseptic necrosis 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.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 history of malignant neoplasm of ovary C79.31 Secondary malignant neoplasm of brain Office Visit 09/06/2017 2:40p [facility] Internal Zsofia Don, Z00.00 [facility] for Medicine - [place] PRODUCTION SUPPORT ENGINEER general adult Rd medical exam w/o abnormal findings E66.9 Obesity, unspecified Z13.220 Encounter for screening for lipoid disorders Z13.1 Encounter for screening for diabetes mellitus Z23 Encounter for immunization C56.9 Malignant neoplasm of unspecified ovary M25.512 Pain in left shoulder 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 of right femur Office Visit 03/08/2016 2:55p Orthopedic Flash Chau [facility] aseptic necrosis C.M.A. of right femur [facility].9 Meningitis Mikaela Hutchison M.D. 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 041.85 Gram Negative Organisms Other 296.80 Bipolar Disorder NOS Office Visit 02/14/2015 12:53p [facility], 239.7 Neoplasm Assoc,pc M.DGrant Unspecified Hospitalists Endocrine Gland & Nervous Other 331.4 Hydrocephalus Obstructive 183.0 Malignant Neoplasm Ovary 300.9 Nonpsychotic Disorders NOS Office Visit 02/13/2015 12:53p [facility] Erasto Drakeno, 239.7 Neoplasm Assoc,pc M.Michelle Unspecified Hospitalists Endocrine Gland & Nervous Other 183.0 Malignant Neoplasm Ovary 331.4 Hydrocephalus Obstructive 300.9 Nonpsychotic Disorders NOS Office Visit 02/12/2015 12:52p [facility] Erasto Whitfield, 239.7 Neoplasm Assoc,pc M.D. 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 Unspecified Hospitalists Endocrine Gland & Nervous Other 331.4 Hydrocephalus Obstructive 348.5 Cerebral Edema 183.0 Malignant Neoplasm Ovary Office Visit 02/09/2015 10:15a Neurosurgery Cayden Callejas 198.3 Malignant Services Of Lesia Ibarra M.D. Neoplasm Secondary Brain & Spinal Cord 331.4 Hydrocephalus Obstructive Office Visit 02/09/2015 [facility] Zoran Freeman 331.4 Hydrocephalus 12:50p Assoc,pc Ene, D.O. Obstructive Hospitalists 183.0 Malignant Neoplasm Ovary 348.5 Cerebral Edema 239.7 Neoplasm Unspecified Endocrine Gland & Nervous Other Plan of Treatment Future Appointment(s):10/01/2018 11:00 am - JAVIER Miller at [facility]..12/05/2018 11:40 am - RISSA Ochoa at [facility] Internal Medicine - [address] [address]10/01/2018 11:00 am - Flash Larkin M.D. at [facility]..11/07/2018 1:00 pm - Flash Larkin M.D. at [facility].09/28/2018 - JAVIER Estes-CM87.051 Idiopathic aseptic necrosis of right femurFollow up:Follow up: 4 weeks post op
--- OUTSIDE RECORDS SUMMARY | 2018-10-01 08:28 | XMS REPORT | Continuity of Care Document ---
:1980 External Reference #:[id number] Author Name Ayana Langley Care Team Providers Name Role Phone Vish Carrillo MD Primary Care Physician Unavailable Payers Date Identification Numbers Payment Provider Subscriber Policy Number: [id number] Medicare Jackelin Xie PayID: [id number] [address] [place] [address] Policy Number: [id number] Medicaid Jackelin Xie PayID: [id number] [address] [place] [address] PayID: [id number] Medicare D - Drug Plan Jackelin Xie Expires: 2015 Policy Number: [id number] Medicaid Jackelin Xie Group Name: 1 1 [address] PayID: [id number] [place] [address] Effective: 2015 Policy Number: [id number] Amrik Jackelin Xie Expires: 2016 Group Name: [id number] [address] PayID: [id number] [place] [address] Advance Directives Description No Information Available Problems Date Description Provider Status Onset: 04/02/2015 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 Active Family History Date Family Member(s) Observation Comments General Heart Disease General Cancer Father 74 Onset: (2012) Father [place] Mother 78 Mother No Current Problems First Brother hx unknown First Brother 53 Second Brother 53 Second Brother No Current Problems First Sister Kidney failure? First Sister 48 Social History Type Date Description Comments Sex Unknown Marital Status Lives With Alone ETOH Use Occasionally consumes 1 drink/week alcohol Recreational Drug Use Denies Drug Use Tobacco Use Start: Unknown End: Patient is a former 1/2 pack from age Unknown smoker 20-37 Smoking Status Reviewed: 09/05/18 Patient is a former 1/2 pack from age smoker 20-37 Exercise Type/Frequency Exercises sporadically walk Allergies, Adverse Reactions, Alerts Date Description Reaction Status Severity Comments 04/02/2015 NKDA Active 05/04/2016 Latex Active Medications Medication Date Status Form Strength Qnty SIG Indications Ordering Provider Seroquel Active Tablets 50mg 1 by mouth F31.9 Unknown 00 every night at bedtime Naproxen Active Tablets 500mg 1 tablet Unknown 00 with food by mouth twice a day Zofran Active Unknown 00 Tramadol HCL Active Tablets 50mg 1-2 tablets Unknown 00 every 6 hours as needed Lynparza Active Tablets 150mg twice tabs Z85.43 Rodriguez, 00 twice a day ALEJANDRO Canela Medications Administered in Office Medication Date Status Form Strength Qnty SIG Indications Ordering Provider No Injection Administered Injection Kwaku Silva MD No Injection Administered Injection Kwaku Silva MD Depomedrol Administered Injection Kwaku Pennington 40MG MD Julio Fan Administered Injection Kwaku Pennington 40MG Ted Silva MD Immunizations CPT Code Status Date Vaccine Reaction Lot # 65929 Given 05/09/2018 Influenza Virus Vaccine, patient tollerated shot [id number] Quadrivalent, Split, well. No immediate Preservative Free reaction. 98958 Given 09/06/2017 Tdap - [id number] Tetanus/Diptheria/Acellular Pertussis 32084 Given 09/06/2017 Influenza Virus Vaccine, [id number] Quadrivalent, Split, Preservative Free Vital Signs Date Vital Result Comment 09/05/2018 12:53pm Height 72 inches 6'0" Weight [...] Date Facility Test Result H/L Range Note Laboratory test 08/15/2018 [facility] Cancer Ag 234 U/mL Abnormal <46 1 finding 101 (CA 125), [place] [address] [phone] CBC Auto Diff 08/15/2018 [facility] White Blood 5.9 10^3/uL N 3.5-10.8 [address] [place] [address] [phone] Red Blood Count 4.18 10^6/uL N 4.00-5.40 [...] % Nucleated Red Blood Cells % 0.1 HIV 1/2 AB 08/15/2018 [facility] HIV 1 2 Nonreactive Nonreactive [address] [place] [address] [phone] Comp Metabolic 08/15/2018 [facility] Sodium 138 mmol/L N 135- [address] [place] [address] [phone] Potassium 4.0 mmol/L N 3.5-5.0 Chloride 105 [...] Egfr Non- 107.2 >60 Egfr 129.7 >60 3 Comp Metabolic Panel 07/09/2018 [facility] Sodium 141 mmol/L N 135-[address] [place] [address] [phone] Potassium 3.8 mmol/L N 3.5-5.0 Chloride 106 [...] Egfr Non- 78.7 >60 Egfr 95.2 >60 4 CBC Auto Diff 07/09/2018 [facility] White Blood 4.7 10^3/uL N 3.5-10.[address] [place] [address] [phone] Red Blood Count 4.16 10^6/uL N 4.00-5.40 [...] Blood Cells % 0.1 Laboratory test 07/09/2018 [facility] CA 125 192.2 U/mL High 0 -35 [address] ([place] [address] Cancer Ag) [phone] Laboratory test 06/15/2018 [facility] CA 125 211.5 U/mL High 0 -35 [address] ([place] [address] Cancer Ag) [phone] CBC Auto Diff 06/15/2018 [facility] White Blood 6.8 N 3.5- 10.[address] Count 10^3/[place] [address] [phone] Red Blood Count 4.46 10^6/uL N 4.00-5.40 [...] Cells % 0.2 Comp Metabolic Panel 06/15/2018 [facility] Sodium 141 mmol/L N 135-[address] [place] [address] [phone] Potassium 4.3 mmol/L N 3.5-5.0 Chloride 105 [...] Egfr Non- 91.6 >60 Egfr 110.9 >60 7 CBC Auto Diff 04/10/2018 [facility] White Blood 6.6 10^3/uL N 3.5-10.[address] [place] [address] [phone] Red Blood Count 4.24 10^6/uL N 4.00-5.40 [...] Cells % 0.4 Comp Metabolic Panel 04/10/2018 [facility] Sodium 138 mmol/L N 135-145 [address] [place] [address] [phone] Potassium 3.8 mmol/L N 3.5-5.0 Chloride 102 [...] Egfr Non- 94.7 >60 Egfr 114.6 >60 8 Laboratory test 04/10/2018 [facility] CA 125 209.3 U/mL High 0 -35 [address] ([place] [address] Cancer Ag) [phone] CBC Auto Diff 03/30/2018 [facility] White Blood 5.2 N 3.5- 10.[address] Count 10^3/[place] [address] [phone] Red Blood Count 4.11 10^6/uL N 4.00-5.40 [...] Cells % 0.1 Comp Metabolic Panel 03/30/2018 [facility] Sodium 138 mmol/L N 135-[address] [place] [address] [phone] Potassium 3.9 mmol/L N 3.5-5.0 Chloride 104 [...] Egfr Non- 84.7 >60 Egfr 102.5 >60 10 Laboratory test 03/30/2018 [facility] CA 125 164.3 U/mL High 0 -35 [address] ([place] [address] Cancer Ag) [phone] CBC Auto Diff 01/19/2018 [facility] White Blood 8.6 N 3.5- 10.[address] Count 10^3/[place] [address] [phone] Red Blood Count 4.17 10^6/uL N 4.00-5.40 [...] Blood Cells % 0.1 Laboratory test 01/19/2018 [facility] CA 125 176.3 U/mL High 0 -35 [address] ([place] [address] Cancer Ag) [phone] Comp Metabolic 01/19/2018 [facility] Sodium 140 mmol/L N 135- [address] [place] [address] [phone] Potassium 4.5 mmol/L N 3.5-5.0 Chloride 106 [...] Egfr Non- 93.2 >60 Egfr 112.7 >60 13 CBC Auto Diff 11/13/2017 [facility] White Blood 4.9 10^3/uL N 3.5-10.[address] [place] [address] [phone] Red Blood Count 3.78 10^6/uL Low 4.0-5.4 [...] Blood Cells % 0.1 Comp Metabolic Panel 11/13/2017 [facility] Sodium 138 mmol/L Low 139-145 [address] [place] [address] [phone] Potassium 4.2 mmol/L N 3.5-5.0 Chloride 104 [...] Egfr Non- 76.9 >60 Egfr 98.9 >60 14 Laboratory test 11/13/2017 [facility] CA 125 (Ovarian 131.2 High 0-35 15 finding [address] [place] Cancer Ag) U/[place] [address] [phone] Lipid Profile 09/12/2017 [facility] Triglycerides 192 mg/dL 16 (Trig/Chol/HDL) [address] [place] [address] [phone] Cholesterol 214 mg/dL 17 HDL Cholesterol 51.9 mg/dL 18 LDL Cholesterol 124 mg/dL 19 Comp Metabolic Panel 09/12/2017 [facility] Sodium 138 mmol/L N 133-[address] [place] [address] [phone] Potassium 4.3 mmol/L N 3.5-5.0 Chloride 105 [...] Egfr Non- 85.2 >60 Egfr 109.5 >60 20 CBC Auto Diff 09/12/2017 [facility] White Blood 5.9 10^3/uL N 3.5-10.[address] [place] [address] [phone] Red Blood Count 4.01 10^6/uL N 4.0-5.4 [...] Blood Cells % 0.1 Laboratory test 09/12/2017 [facility] TSH (Thyroid 3.77 mcIU/mL N 0.34-5.[address] Stim Horm) [place] [address] [phone] Vitamin B12 And 09/12/2017 [facility] Vitamin B12 408 pg/mL N 180-914 21 Folate Serum [address] [place] [address] [phone] Folic Acid (Folate) 18.14 ng/mL >3.99 1 ADDITIONAL INFORMATION The testing method is an electrochemiluminescence assay manufactured by [employer] and performed on the Lev system. Values obtained with different assay methods or kits may be different and cannot be used interchangeably. Test results cannot be interpreted as absolute evidence for the presence or absence of malignant disease. Test Performed by: [facility] [address] [place] [address] 2 It is recognized that currently available assays [...] 95% confidence interval of 99.78 to 99.96%. 3 Because ethnic data is not always readily [...] 15-29 5 Kidney failure <15 (or dialysis) 4 Because ethnic data is not always [...] 5 Kidney failure <15 (or dialysis) 5 Instrument used is [employer] Ne[employer] DXI 600. The assay is a two-site immunoenzymatic "sandwich" assay. Do not interpret CA125 levels as absolute evidence of the presence or the absence of malignant disease. Use in conjunction with information from the clinical evaluation of the patient and other diagnostic procedures. Values obtained with different assay methods cannot be used interchangeably. 6 Instrument used is [employer] John DXI 600. The assay is a two-site immunoenzymatic "sandwich" assay. Do not interpret CA125 levels as absolute evidence of the presence or the absence of malignant disease. Use in conjunction with information from the clinical evaluation of the patient and other diagnostic procedures. Values obtained with different assay methods cannot be used interchangeably. 7 Because ethnic data is not always readily [...] 15-29 5 Kidney failure <15 (or dialysis) 8 Because ethnic data is not always readily [...] 15-29 5 Kidney failure <15 (or dialysis) 9 Instrument used is [employer] Ne[employer] DXI 600. The assay is a two-site immunoenzymatic "sandwich" assay. Do not interpret CA125 levels as absolute evidence of the presence or the absence of malignant disease. Use in conjunction with information from the clinical evaluation of the patient and other diagnostic procedures. Values obtained with different assay methods cannot be used interchangeably. 10 Because ethnic data is not always [...] (or dialysis) 11 Instrument used is [employer] [place] DXI 600. The assay is a two-site immunoenzymatic "sandwich" assay. Do not interpret CA125 levels as absolute evidence of the presence or the absence of malignant disease. Use in conjunction with information from the clinical evaluation of the patient and other diagnostic procedures. Values obtained with different assay methods cannot be used interchangeably. 12 Instrument used is [employer] [place] DXI 600. The assay is a two-site immunoenzymatic "sandwich" assay. Do not interpret CA125 levels as absolute evidence of the presence or the absence of malignant disease. Use in conjunction with information from the clinical evaluation of the patient and other diagnostic procedures. Values obtained with different assay methods cannot be used interchangeably. 13 Because ethnic data is not always readily [...] 15-29 5 Kidney failure <15 (or dialysis) 14 Because ethnic data is not always [...] <15 (or dialysis) 15 Instrument used is [employer] Ne[employer] DXI 600. The assay is a two-site immunoenzymatic "sandwich" assay. Do not interpret CA125 levels as absolute evidence of the presence or the absence of malignant disease. Use in conjunction with information from the clinical evaluation of the patient and other diagnostic procedures. Values obtained with different assay methods cannot be used interchangeably. 16 Desirable: <150 Borderline High: 150-199 High: 200-499 Very High: >500 17 Desirable: <200 Borderline High: 200-239 High: >239 18 Low: <40 Desirable: 40-60 High: >60 19 Desirable: <100 Near Optimal: 100-129 Borderline High: 130-159 High: 160-189 Very High: >189 20 Because ethnic data is not always readily [...] 15-29 5 Kidney failure <15 (or dialysis) 21 Normal Range 180 to 914 Indeterminate Range 145 to 180 Deficient Range <145 Procedures Date Code Description Status 06/06/2018 86455 Inj/Aspir Major JT Or Bursa W/ US Completed 10/23/2015 23609 Fluoroscopic Guidance For Cent Completed 10/23/2015 11012 Ultrasound Guidance For Vascular Access Completed 10/23/2015 15759 Insertion Tunneled Cent Venous Cathr W Subcut Port 5 Yrs Completed Or Oldr 02/21/2015 89819 Twist Drill Holes For Subdural,Intracerebral Or Completed Ventricular Punct 02/13/2015 34612 Craniectomy Exc Brain Tumr Infratentorial Or Posterior Completed Fossa 02/09/2015 43370 Craniectomy Trephination, Bone Flap For Exc Brain Tumor Completed 02/09/2015 66478 Twist Drill Holes For Subdural,Intracerebral Or Completed Ventricular Punct Encounters Type Date Location Provider Dx Diagnosis Office Visit 07/11/2018 [facility] Ochoa, M87.051 Idiopathic aseptic 3:20p Medicine - [place] [facility] CALL[facility] necrosis of right Rd 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.43 Personal history of malignant neoplasm of ovary E66.9 Obesity, unspecified F31.9 Bipolar disorder, unspecified Office Visit 05/09/2018 2:20p [facility] Internal Hamilton Ochoa, Z85.43 Personal history Medicine - [place] [facility] CALLER of malignant Rd neoplasm of ovary E66.9 Obesity, unspecified M87.059 Idiopathic aseptic necrosis of unspecified femur F31.9 Bipolar disorder, unspecified M85.9 Disorder of bone density and structure, unspecified Z23 Encounter for immunization 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.43 Personal history of malignant neoplasm of ovary C79.31 Secondary malignant neoplasm of brain Office Visit 10/04/2017 10:40a Payroll And Benefits Coordinator Internal Zsofia Don, E66.9 Obesity, Medicine - [place] [facility] CALL[address] Rd E78.00 Pure hypercholesterolemia, unspecified M25.512 Pain in left shoulder M87.051 Idiopathic aseptic necrosis 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 of right femur Office Visit 03/08/2016 2:55p Orthopedic Flash Chau [facility] aseptic necrosis C.M.A. of right femur Office Visit 03/12/2015 12:49p Ariadne Martinez 322.9 Meningitis Mikaela Hutchison M.D. Unspec Diseases 041.85 Gram Negative Organisms Other 183.0 Malignant Neoplasm Ovary 296.80 Bipolar Disorder NOS Office Visit 03/05/2015 11:26a Emanuel Romero Martinez 322.9 Meningitis Infectious Evaristo Hutchison Unspec Diseases 041.85 Gram Negative Organisms Other 183.0 Malignant Neoplasm Ovary 296.80 Bipolar Disorder NOS Office Visit 03/02/2015 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 041.85 Gram Negative Organisms Other 296.80 Bipolar Disorder NOS Office Visit 02/14/2015 12:53p [facility] Erasto Nahid, 239.7 Neoplasm Assoc,pc M.DGrant Unspecified Hospitalists Endocrine Gland & Nervous Other 331.4 Hydrocephalus Obstructive 183.0 Malignant Neoplasm Ovary 300.9 Nonpsychotic Disorders NOS Office Visit 02/13/2015 12:53p [facility] Erasto Whitfield, 239.7 Neoplasm Assoc,pc Evaristo Unspecified Hospitalists Endocrine Gland & Nervous Other 183.0 Malignant Neoplasm Ovary 331.4 Hydrocephalus Obstructive 300.9 Nonpsychotic Disorders NOS Office Visit 02/12/2015 12:52p [facility] Erasto Whitfield, 239.7 Neoplasm Assoc,pc M.DGrant Unspecified Hospitalists Endocrine Gland & Nervous Other 348.5 Cerebral Edema 331.4 Hydrocephalus Obstructive 183.0 Malignant Neoplasm Ovary Office Visit 02/11/2015 12:52p [facility] Erasto Whitfield, 239.7 Neoplasm Assoc,pc M.Michelle Unspecified Hospitalists Endocrine Gland & Nervous Other 331.4 Hydrocephalus Obstructive 348.5 Cerebral Edema 183.0 Malignant Neoplasm Ovary Office Visit 02/10/2015 12:52p [facility] Zoran Freeman 239.7 Neoplasm Assoc,pc Ene, D.OGrant Unspecified Hospitalists Endocrine Gland & Nervous Other 331.4 Hydrocephalus Obstructive 348.5 Cerebral Edema 183.0 Malignant Neoplasm Ovary Office Visit 02/09/2015 10:15a Neurosurgery Cayden Callejas 198.3 Malignant Services [facility] Lesia Ibarra M.D. Neoplasm Secondary Brain & Spinal Cord 331.4 Hydrocephalus Obstructive Office Visit 02/09/2015 [facility] Zoran Freeman 331.4 Hydrocephalus 12:50p Assoc,pc Ene, D.O. Obstructive Hospitalists 183.0 Malignant Neoplasm Ovary 348.5 Cerebral Edema 239.7 Neoplasm Unspecified Endocrine Gland & Nervous Other Plan of Treatment Future Appointment(s):11/07/2018 1:00 pm - Flash Larkin M.D. [facility]/10/2018 2:20 pm - RISSA Ochoa at [facility] Internal Medicine - [address]/05/2018 - Flash Larkin M.D.M87.051 Idiopathic aseptic necrosis of right femurNew Xrays:Hip Right 2 Views And Pelvis [id number] - [id number], Ordered: 09/05/18
--- OUTSIDE RECORDS SUMMARY | 2018-10-01 08:28 | XMS REPORT | Continuity of Care Document ---
:1980 External Reference #:[id number] Author Name Sima Livingston Care Team Providers Name Role Phone Vish Carrillo MD Primary Care Physician Unavailable Payers Date Identification Numbers Payment Provider Subscriber Policy Number: [id number] Medicare Jackelin Xie PayID: [id number] [address] [place] [address] Policy Number: [id number] Medicaid Jackelin Xie PayID: [id number] [address] [place] [address] PayID: [id number] Medicare D - Drug Plan Jackelin Xie Expires: 2015 Policy Number: [id number] Medicaid Jackelin Xie Group Name: 1 1 [address] PayID: [id number] [place] [address] Effective: 2015 Policy Number: [id number] Amrik Jackelin Xie Expires: 2016 Group Name: [id number] [address] PayID: [id number] [place] [address] Advance Directives Description No Information Available Problems Date Description Provider Status Onset: 04/02/2015 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 Active Family History Date Family Member(s) Observation Comments General Heart Disease General Cancer maternal GM had ovarian CA Father due to d/t () malignagncy? Onset: (2012) Father AR Mother 78 Mother No Current Problems First Brother hx unknown First Brother 53 Second Brother 53 Second Brother No Current Problems First Sister Kidney failure? First Sister 48 Social History Type Date Description Comments Sex Unknown Marital Status Lives With Alone renting apartment ETOH Use Occasionally consumes 1 drink/week alcohol Recreational Drug Use Denies Drug Use Tobacco Use Start: Unknown Patient is a former 1/2 pack from age End: Unknown smoker 20-37 Smoking Status Reviewed: 09/19/18 Patient is a former 1/2 pack from age smoker 20-37 Exercise Type/Frequency Exercises sporadically walk Allergies, Adverse Reactions, Alerts Date Description Reaction Status Severity Comments 04/02/2015 NKDA Active 05/04/2016 Latex Active Medications Medication Date Status Form Strength Qnty SIG Indications Ordering Provider Seroquel Active Tablets 50mg 1 by mouth F31.9 Unknown 00 every night at bedtime Zofran Active Unknown 00 Lynparza Active Tablets 150mg twice tabs Z85.43 Rodriguez, 00 twice a day Rola, TILE ERECTOR Morphine Active Tablets 15mg Unknown Sulfate 00 Meloxicam Active Tablets 7.5mg Patiño, 00 DEWAYNE RoldanP-BC Naproxen Hx Tablets 500mg 1 tablet Unknown 00 - with food 09/19/19 by mouth 19 twice a day Tramadol HCL Hx Tablets 50mg 1-2 tablets Unknown 00 - every 6 09/19/19 hours as 19 needed Medications Administered in Office Medication Date Status Form Strength Qnty SIG Indications Ordering Provider No Injection Administered Injection Kwaku Silva MD No Injection Administered Injection Kwaku Silva MD Depomedrol Administered Injection Kwaku Pennington 40MG Ted Silva MD Depomedrol Administered Injection Kwaku Pennington 40MG Ted Silva MD Immunizations CPT Code Status Date Vaccine Reaction Lot # 21468 Given 05/09/2018 Influenza Virus Vaccine, patient tollerated shot [id number] Quadrivalent, Split, well. No immediate Preservative Free reaction. 58[address] Given 09/06/2017 Tdap - [id number] Tetanus/Diptheria/Acellular Pertussis 88100 Given 09/06/2017 Influenza Virus Vaccine, [id number] Quadrivalent, Split, Preservative Free Vital Signs Date Vital Result Comment 09/19/2018 1:04pm Height 72 inches 6'0" Weight [...] Result H/L Range Note CBC Auto Diff 08/15/2018 [facility] White Blood 5.9 10^3/uL N 3.5-10.[address] [place] [address] [phone] Red Blood Count 4.18 10^6/uL N 4.00-5.40 [...] Cells % 0.1 Comp Metabolic Panel 08/15/2018 [facility] Sodium 138 mmol/L N 135-[address] [place] [address] [phone] Potassium 4.0 mmol/L N 3.5-5.0 Chloride 105 [...] Egfr Non- 107.2 >60 Egfr 129.7 >60 1 HIV 1/2 AB 08/15/2018 [facility] HIV 1 2 Nonreactive Nonreactive [address] [place] [address] [place] [address] [phone] Laboratory 08/15/2018 [facility] Cancer Ag 234 U/mL Abnormal < 46 3 test finding [address] [place] [address] ([address]), [place] [address] S [phone] CBC Auto 07/09/2018 [facility] White 4.7 10^3/uL N 3.5-10.[address] [place] [address] [place] [address] Count [phone] Red Blood Count 4.16 10^6/uL N 4.00-5.40 [...] Blood Cells % 0.1 Laboratory test 07/09/2018 [facility] CA 125 192.2 U/mL High 0 -35 [address] ([place] [address] Cancer Ag) [phone] Comp Metabolic 07/09/2018 [facility] Sodium 141 mmol/L N 135- [address] [place] [address] [phone] Potassium 3.8 mmol/L N 3.5-5.0 Chloride 106 [...] Egfr Non- 78.7 >60 Egfr 95.2 >60 5 CBC Auto Diff 06/15/2018 [facility] White Blood 6.8 10^3/uL N 3.5-10.[address] [place] [address] [phone] Red Blood Count 4.46 10^6/uL N 4.00-5.40 [...] Cells % 0.2 Comp Metabolic Panel 06/15/2018 [facility] Sodium 141 mmol/L N 135-145 [address] [place] [address] [phone] Potassium 4.3 mmol/L N 3.5-5.0 Chloride 105 [...] Egfr Non- 91.6 >60 Egfr 110.9 >60 6 Laboratory test 06/15/2018 [facility] CA 125 211.5 U/mL High 0 -35 [address] ([place] [address] Cancer Ag) [phone] CBC Auto Diff 04/10/2018 [facility] White Blood 6.6 N 3.5- 10.[address] Count 10^3/[place] [address] [phone] Red Blood Count 4.24 10^6/uL N 4.00-5.40 [...] Cells % 0.4 Comp Metabolic Panel 04/10/2018 [facility] Sodium 138 mmol/L N 135-[address] [place] [address] [phone] Potassium 3.8 mmol/L N 3.5-5.0 Chloride 102 [...] Egfr 114.6 >60 8 Laboratory test 04/10/2018 [facility] CA 125 209.3 U/mL High 0 -35 [address] ([place] [address] Cancer Ag) [phone] CBC Auto Diff 03/30/2018 [facility] White Blood 5.2 N 3.5- 10.[address] Count 10^3/[place] [address] [phone] Red Blood Count 4.11 10^6/uL N 4.00-5.40 [...] Cells % 0.1 Comp Metabolic Panel 03/30/2018 [facility] Sodium 138 mmol/L N 135-[address] [place] [address] [phone] Potassium 3.9 mmol/L N 3.5-5.0 Chloride 104 [...] Egfr 102.5 >60 10 Laboratory test 03/30/2018 [facility] CA 125 164.3 U/mL High 0 -[address] (Ovarian [place] [id number] Cancer Ag) [phone] Comp Metabolic 01/19/2018 [facility] Sodium 140 mmol/L N 135- [address] [place] [address] [phone] Potassium 4.5 mmol/L N 3.5-5.0 Chloride 106 [...] Egfr Non- 93.2 >60 Egfr 112.7 >60 12 Laboratory test 01/19/2018 [facility] CA 125 176.3 U/mL High 0 -35 [address] (Ovarian [place] [id number] Cancer Ag) [phone] CBC Auto Diff 01/19/2018 [facility] White Blood 8.6 N 3.5- 10.[address] Count 10^3/[place] [address] [phone] Red Blood Count 4.17 10^6/uL N 4.00-5.40 [...] 0-2 Nucleated Red Blood Cells % 0.1 CBC Auto Diff 11/13/2017 [facility] White Blood 4.9 10^3/uL N 3.5-10.[address] [place] [address] [phone] Red Blood Count 3.78 10^6/uL Low 4.0-5.4 [...] Red Blood Cells % 0.1 Laboratory test 11/13/2017 [facility] CA 125 131.2 U/mL High 0 -[address] ([place] [address] Cancer Ag) [phone] Comp Metabolic 11/13/2017 [facility] Sodium 138 mmol/L Low 139 -[address] [place] [address] [phone] Potassium 4.2 mmol/L N 3.5-5.0 Chloride 104 [...] Egfr Non- 76.9 >60 Egfr 98.9 >60 15 Vitamin B12 And 09/12/2017 [facility] Vitamin B12 408 pg/mL N 180-914 16 Folate Serum [address] [place] [address] [phone] Folic Acid (Folate) 18.14 ng/mL >3.99 Laboratory test 09/12/2017 [facility] TSH (Thyroid 3.77 mcIU/mL N 0.34-5.[address] Stim Horm) [place] [address] [phone] CBC Auto Diff 09/12/2017 [facility] White Blood 5.9 10^3/uL N 3.5-10.[address] [place] [address] [phone] Red Blood Count 4.01 10^6/uL N 4.0-5.4 [...] Blood Cells % 0.1 Comp Metabolic Panel 09/12/2017 [facility] Sodium 138 mmol/L N 133-145 [address] [place] [address] [phone] Potassium 4.3 mmol/L N 3.5-5.0 Chloride 105 [...] Egfr Non- 85.2 >60 Egfr 109.5 >60 17 Lipid Profile 09/12/2017 [facility] Triglycerides 192 mg/dL 18 (Trig/Chol/HDL) [address] [place] [address] [phone] Cholesterol 214 mg/dL 19 HDL Cholesterol 51.9 mg/dL 20 LDL Cholesterol 124 mg/dL 21 1 Because ethnic data is not always [...] 5 Kidney failure <15 (or dialysis) 2 It is recognized that currently available [...] confidence interval of 99.78 to 99.96%. 3 ADDITIONAL INFORMATION The testing method is an electrochemiluminescence assay manufactured by [employer] and performed on the Lev system. Values obtained with different assay methods or kits may be different and cannot be used interchangeably. Test results cannot be interpreted as absolute evidence for the presence or absence of malignant disease. Test Performed by: [place] [id number] 4 Instrument used is Vikram John DXI 600. The assay is a two-site immunoenzymatic "sandwich" assay. Do not interpret CA125 levels as absolute evidence of the presence or the absence of malignant disease. Use in conjunction with information from the clinical evaluation of the patient and other diagnostic procedures. Values obtained with different assay methods cannot be used interchangeably. 5 Because ethnic data is not always [...] 5 Kidney failure <15 (or dialysis) 6 Because ethnic data is not always readily [...] 15-29 5 Kidney failure <15 (or dialysis) 7 Instrument used is [employer] DXI 600. The assay is a two-site immunoenzymatic "sandwich" assay. Do not interpret CA125 levels as absolute evidence of the presence or the absence of malignant disease. Use in conjunction with information from the clinical evaluation of the patient and other diagnostic procedures. Values obtained with different assay methods cannot be used interchangeably. 8 Because ethnic data is not always [...] (or dialysis) 9 Instrument used is [employer] John DXI 600. [...] (or dialysis) 11 Instrument used is Vikram Highland DXI 600. The assay is a two-site [...] <15 (or dialysis) 13 Instrument used is [employer] John DXI 600. The assay is a two-site immunoenzymatic "sandwich" assay. Do not interpret CA125 levels as absolute evidence of the presence or the absence of malignant disease. Use in conjunction with information from the clinical evaluation of the patient and other diagnostic procedures. Values obtained with different assay methods cannot be used interchangeably. 14 Instrument used is [employer] John DXI 600. The assay is a two-site immunoenzymatic "sandwich" assay. Do not interpret CA125 levels as absolute evidence of the presence or the absence of malignant disease. Use in conjunction with information from the clinical evaluation of the patient and other diagnostic procedures. Values obtained with different assay methods cannot be used interchangeably. 15 Because ethnic data is not always readily [...] 15-29 5 Kidney failure <15 (or dialysis) 16 Normal Range 180 to 914 Indeterminate Range 145 to 180 Deficient Range <145 17 Because ethnic data is not always [...] 5 Kidney failure <15 (or dialysis) 18 Desirable: <150 Borderline High: 150-199 High: 200-499 Very High: >500 19 Desirable: <200 Borderline High: 200-239 High: >239 20 Low: <40 Desirable: 40-60 High: >60 21 Desirable: <100 Near Optimal: 100-129 Borderline High: 130-159 High: 160-189 Very High: >189 Procedures Date Code Description Status 06/06/2018 87384 Inj/Aspir Major JT Or Bursa W/ US Completed 10/23/2015 18040 Fluoroscopic Guidance For Cent Completed 10/23/2015 53099 Ultrasound Guidance For Vascular Access Completed 10/23/2015 35616 Insertion Tunneled Cent Venous Cathr W Subcut Port 5 Yrs Completed Or Oldr 02/21/2015 56524 Twist Drill Holes For Subdural,Intracerebral Or Completed Ventricular Punct 02/13/2015 98322 Craniectomy Exc Brain Tumr Infratentorial Or Posterior Completed Fossa 02/09/2015 74092 Craniectomy Trephination, Bone Flap For Exc Brain Tumor Completed 02/09/2015 79259 Twist Drill Holes For Subdural,Intracerebral Or Completed Ventricular Punct Encounters Type Date Location Provider Dx Diagnosis Office Visit 07/11/2018 [employer] [facility] Ochoa, M87.051 Idiopathic aseptic 3:20p [facility] - [place] RN PROGRESSIVE CARE necrosis of right Rd 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.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 history of malignant neoplasm of ovary E66.9 Obesity, unspecified F31.9 Bipolar disorder, unspecified Office Visit 05/09/2018 2:20p [employer] [facility] [employer] [facility] Ochoa, Z85.43 Personal history Medicine - [place] RN PROGRESSIVE CARE of malignant Rd neoplasm of ovary E66.9 Obesity, unspecified M87.059 Idiopathic aseptic necrosis of unspecified femur F31.9 Bipolar disorder, unspecified M85.9 Disorder of bone density and structure, unspecified Z23 Encounter for immunization 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.43 Personal history of malignant neoplasm of ovary C79.31 Secondary malignant neoplasm of brain Office Visit 10/04/2017 10:40a [facility] Internal Hamilton Ochoa, E66.9 Obesity, Medicine - [place] RN PROGRESSIVE CARE unspecified Rd E78.00 Pure hypercholesterolemia, unspecified M25.512 Pain in left shoulder M87.051 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 of right femur Office Visit 03/08/2016 2:55p Orthopedic Flash M87.051 [facility] aseptic necrosis C.M.A. of right femur Office Visit 03/12/2015 12:49p [facility] Jasmeet Martinez 322.9 Meningitis Infectious Evaristo Hutchison Unspec Diseases 041.85 Gram Negative Organisms Other 183.0 Malignant Neoplasm Ovary 296.80 Bipolar Disorder NOS Office Visit 03/05/2015 11:26a [facility] Jasmeet Martinez 322.9 Meningitis Infectious Evaristo Hutchison Unspec Diseases 041.85 Gram Negative Organisms Other 183.0 Malignant Neoplasm Ovary 296.80 Bipolar Disorder NOS Office Visit 03/02/2015 [facility] Jasmeet Martinez 996.63 Infection & 10:53a For Infectious Evaristo Hutchison Inflammatory React Diseases Due To Nervous System Device 183.0 Malignant Neoplasm Ovary 198.3 Malignant Neoplasm Secondary Brain & Spinal Cord 041.85 Gram Negative Organisms Other 296.80 Bipolar Disorder NOS Office Visit 02/14/2015 12:53p [facility] Erasto Whitfield, 239.7 Neoplasm Assoc,dana M.DGrant Unspecified Hospitalists Endocrine Gland & Nervous Other 331.4 Hydrocephalus Obstructive 183.0 Malignant Neoplasm Ovary 300.9 Nonpsychotic Disorders NOS Office Visit 02/13/2015 12:53p [facility] Erasto Whitfield, 239.7 Neoplasm Assoc,pc M.DGrant Unspecified Hospitalists Endocrine Gland & Nervous Other 183.0 Malignant Neoplasm Ovary 331.4 Hydrocephalus Obstructive 300.9 Nonpsychotic Disorders NOS Office Visit 02/12/2015 12:52p [facility] Erasto Whitfield, 239.7 Neoplasm Assoc,pc M.DGrant Unspecified Hospitalists Endocrine Gland & Nervous Other 348.5 Cerebral Edema 331.4 Hydrocephalus Obstructive 183.0 Malignant Neoplasm Ovary Office Visit 02/11/2015 12:52p [facility] Erasto Whitfield 239.7 Neoplasm Assoc,pc M.DGrant Unspecified Hospitalists Endocrine Gland & Nervous Other 331.4 Hydrocephalus Obstructive 348.5 Cerebral Edema 183.0 Malignant Neoplasm Ovary Office Visit 02/10/2015 12:52p [facility] Ryan Freeman 239.7 Neoplasm Assoc,dana Luque D.O. Unspecified Hospitalists Endocrine Gland & Nervous Other 331.4 Hydrocephalus Obstructive 348.5 Cerebral Edema 183.0 Malignant Neoplasm Ovary Office Visit 02/09/2015 10:15a Neurosurgery Cayden Callejas 198.3 [facility] Evaristo Ibarra Neoplasm Secondary Brain & Spinal Cord 331.4 Hydrocephalus Obstructive Office Visit 02/09/2015 Ariadne Freeman 331.4 Hydrocephalus 12:50p Assoc,pc Jaya Luque Obstructive Hospitalists 183.0 Malignant Neoplasm Ovary 348.5 Cerebral Edema 239.7 Neoplasm Unspecified Endocrine Gland & Nervous Other Plan of Treatment Future Appointment(s):12/05/2018 11:40 am - RISSA Ochoa at [facility] Internal Medicine [facility] [address]10/01/2018 11:00 am - [facility] - [facility]/10[facility] 2:20 pm - [facility] - RISSA OchoaZ01.810 Encounter for preprocedural cardiovascular examinationNew Orders:EKG, Ordered: Comments:Please get the xray and the lab work done today and follow up with the orthopedic evaluation. You should avoid alcohol, caffeinated drinks on the day of the surgery. Please do not take your OTC supplements and your other medications on the day of the surgery.Do not take the Meloxicam for 5 days beforesurgery.You may take the morphine and the Tylenol as needed up ot the day before.Will call you when to stop taking the Lynparza.Follow up:f/u early November or earlier if lyrybvT79.051 Idiopathic aseptic necrosis of right xvbfaU88.43 Personal history of malignant neoplasm of grlzrG61.31 Secondary malignant neoplasm of bonjbQ69.9 Obesity, unspecified
[2018-10-01] MEDS ORDERED: Lidocaine 2% PF * 5 ML VIAL ONE (08:45)
[2018-10-01] MEDS ORDERED: Rocuronium* 10 MG/ML VIAL ONE (08:45)
[2018-10-01] MEDS ORDERED: Propofol* 10 MG/ML 20 ML BTL ONE (08:45)
[2018-10-01] MEDS ORDERED: Midazolam* 1 MG/ML 2 ML VIAL (2 MG) ONE (08:46)
[2018-10-01] MEDS ORDERED: Dexmedetomidine* 200 MCG/2 ML 2 ML VIAL ONE (08:48)
[2018-10-01] MEDS ORDERED: ROPIVACAINE 5 MG/ML 30 ML BTL (0.5%) ONE (08:48)
[2018-10-01] MEDS ORDERED: ceFAZolin 2 GM PREMIX in ORs 2 GM/50 ML BAG IVPB ONE (08:51)
[2018-10-01] MEDS ORDERED: fentaNYL* 50 MCG/ML 2 ML VIAL (100 MCG VIAL) ONE (08:51)
[2018-10-01] MEDS ORDERED: Magnesium Sulf 4 GM/100 ML IV* 4,000 MG/100 ML BAG IVPB STA (09:03)
[2018-10-01] MEDS ORDERED: KETAMINE HCL* 50 MG/ML 10 ML VIAL ONE (12:47)
[2018-10-01] MEDS ORDERED: Dexamethasone IV* 4 MG/ML 1 ML (4 MG) ONE (12:48)
[2018-10-01] MEDS ORDERED: EPHEDrine (Pressors)* 50 MG/ML VIAL ONE (13:40)
[2018-10-01] MEDS ORDERED: HYDROmorphone INJ1* 1 MG/ML SYRINGE IV PRN (13:53)
[2018-10-01] MEDS ORDERED: DiMENhydriNATE IV* 50 MG/ML VIAL IV PUSH PRN (13:53)
[2018-10-01] MEDS ORDERED: Naloxone* 0.4 MG/ML 1 ML VIAL IV PRN (13:53)
[2018-10-01] MEDS ORDERED: Acetaminophen IV 1GM/100ML * 100 ML ONE (14:07)
[2018-10-01] MEDS ORDERED: Ketorolac INJ* 30 MG/ML 1 ML VIAL ONE (14:11)
[2018-10-01] MEDS ORDERED: Ondansetron INJ* 2 MG/ML VIAL ONE (14:11)
[2018-10-01] MEDS ORDERED: Metoclopramide IV* 5 MG/ML 2 ML VIAL ONE (14:11)
[2018-10-01] MEDS ORDERED: HYDROmorphone INJ1* 1 MG/ML SYRINGE ONE (14:12)
[2018-10-01] MEDS ORDERED: Glycopyrrolate IV* 0.2 MG/ML 1 ML VIAL ONE (14:24)
[2018-10-01] MEDS ORDERED: Neostigmine Methylsulfate* 1 MG/ML 10 ML VIAL (1 mg/ml) ONE (14:24)
[2018-10-01] MEDS ORDERED: Magnesium Hydroxide LIQ* 30 ML UDC PO PRN (15:03)
[2018-10-01] MEDS ORDERED: Morphine INJ* 2 MG/ML 1 ML SYRINGE (TWO MG - NEW SYRINGE VERSION) IV PRN (15:03)
[2018-10-01] MEDS ORDERED: Ondansetron INJ* 2 MG/ML VIAL IV PRN (15:03)
[2018-10-01] MEDS ORDERED: Cyclobenzaprine TAB* 10 MG PO PRN (15:03)
[2018-10-01] MEDS ORDERED: diPHENhydraMINE IV* 50 MG/ML 1 ml VIAL (BENADRYL) IV PRN (15:03)
[2018-10-01] MEDS ORDERED: diPHENhydraMINE PO* 25 MG PO PRN (15:03)
[2018-10-01] MEDS ORDERED: Ondansetron ODT TAB* 4 MG PO PRN (15:03)
[2018-10-01] MEDS ORDERED: Polyethylene Glycol 3350* 17 GM PACKET PO PRN (15:08)
[2018-10-01] MEDS ORDERED: traMADol TAB* 50 MG PO SCH (16:00)
[2018-10-01] MEDS ORDERED: oxyCODONE TAB* 5 MG TAB ONE (16:20)
[2018-10-01] MEDS: oxyCODONE TAB* 5 MG TAB PO PRN ×2 (16:21→16:23)
[2018-10-01] MEDS ORDERED: traMADol TAB* 50 MG PO PRN (16:33)
[2018-10-01] MEDS ORDERED: Warfarin TAB(*) 10 MG PO ONE (18:00)
[2018-10-01] MEDS: D5W 1/2 NS 1000 ML BAG* 1,000 ML IV SCH (18:07)
[2018-10-01] MEDS: ceFAZolin 1 GM ADVAN(*) 1 GM in NS 0.9% 50 ML* 50 ML IVPB SCH (20:03)
[2018-10-01] MEDS: Ketorolac INJ* 30 MG/ML 1 ML VIAL IV PUSH SCH (20:03)
[2018-10-01] MEDS ORDERED: Morphine TAB Extended Release (*) 30 MG TAB.ER PO SCH (21:00)
[2018-10-01] MEDS ORDERED: Morphine TAB Extended Release (*) 15 MG TAB.ER PO SCH (22:02)
[2018-10-01] MEDS: Magnesium Hydroxide LIQ* 30 ML UDC PO SCH (22:06)
[2018-10-01] MEDS: Docusate CAP* 100 MG PO SCH (22:07)
[2018-10-01] MEDS: QUEtiapine TAB* 300 MG PO SCH (22:07)
[2018-10-01] MEDS: Acetaminophen TAB* 325 MG PO SCH (22:07)
[2018-10-01] MEDS: Morphine TAB Extended Release (*) 15 MG TAB.ER PO SCH (22:08)
[2018-10-01] MEDS: OLAPARIB 150 MG PO SCH (22:11)
--- NOTE | 2018-10-01 22:43 | OP ---
DATE OF OPERATION: 10/01/18 - ROOM #342 DATE OF : 78 ATTENDING SURGEON: Flash Larkin M.D. PELLET PREPARATION OPERATOR: Dalia Yoder RPA. ANESTHESIA: Regional and general. PRE-OP DIAGNOSIS: Avascular necrosis, right hip. POST-OP DIAGNOSIS: Avascular necrosis, right hip. OPERATIVE PROCEDURE: Right total hip arthroplasty. ESTIMATED BLOOD LOSS: 200 cc. COMPLICATIONS: None. HARDWARE: Marcelino 12.5 M/L taper, 50 mm Continuum Cup, +3.5 mm and 32 mm Biolox head, vitamin E impregnated 15-degree elevated liner. INDICATIONS: Ms. Xie is a 38-year-old female who has metastatic cancer. 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 She had significant limitations with motion and function that are presented over 2 years ago and I discussed with her total hip arthroplasty should work well to decrease her pain and improve her function. She was not interested in surgery at that point. Her pain, however, has gotten worse so that now she is interested in surgery. Risks of surgery such as infection, scar formation, stiffness, DVT, pulmonary embolism, hardware failure, and continued knee pain were some of the risks discussed. She had been declared medically optimized and wished to proceed. DESCRIPTION OF PROCEDURE: The patient had a block placed in the holding area. She was brought back to the OR. General endotracheal anesthesia was established. Seo catheter was placed. She was rolled into the left lateral decubitus position and care was taken to make sure that she was nicely padded. Right hip area was prepped and then draped. Skin over the incision was made aiming towards greater trochanter and where I could palpate as she was fairly well padded. Incision was carried down through the skin and subcutaneous fat. Small bleeders encountered were ligated using electrocautery. Eventually greater trochanter was reached. Fat was swept off of the fascia to allow for easy repair later and fascia was sharply incised in line with the fibers. Gluteus fascia was sharply incised and gluteus fibers were also split in line with the muscle fibers. Charnley retractor was placed and trochanteric bursa was taken down using electrocautery. Leg was internally rotated and sharp Hohmann was placed under the gluteus medius/gluteus minimus. Nice exposure of the short external rotators and piriformis was obtained. She had a very diminutive piriformis. Electrocautery was used to take down piriformis and short external rotators and T-capsulotomy was made. Gush of clear yellowish joint fluid was encountered. Hip was then easily dislocated. Cutting guide was placed and femoral neck was marked. Femoral head was then resected. It could be seen where she had growth all along the edges and it appeared a little bit different than the typical osteoarthritic change. This was sent for specimen. Large C-retractor was placed anteriorly and a broad Hohmann was placed inferiorly. This gave nice exposure to the acetabulum. Dasia was used to grasp the redundant labrum and this was sharply excised using a Sam blade. Some of the redundant tissue and the pulvinar was also resected using a rongeur. Beginning with a 44 reamer, she was first deepened just a little bit and then progressively expanded. She had been templated for a 52 or 54 cup where it could be seen where some of this was magnification because of her soft tissues. At a 49, I had a nice [id number] fit and a 50 cup was called for. A 50-mm cup was then impacted into place. Two screws were placed and a good bite was obtained with the screws. Trial liner was placed and curved osteotome was used to take down some of the spurs along the anterior rim. Attention was turned to the proximal femur. Box osteotome was used to open the femoral canal and the canal finder was easily passed. Beginning with a 5-broach, she was progressively broached and seemed to fit nicely within an 11. Calcar planer was run and she was trialed with a standard neck and 0 head. She was still short on the side, but she had started quite short because of the collapse of her femoral head. She had good stability where she could come up, being limited more by her body habitus to about a 110 degrees of hip flexion. With internal rotation in the hip at 90 degrees, she started to leave around at about 30 degrees. Hip was then dislocated and it could be seen where the 11th stem was loose. Elevated liner was then impacted into place and then a 12.5-broach was placed. She was trialed with 3.5 and I liked the length better. Hip was dislocated and at this time, the broach did not loosen. A 12.5 M/L taper was then impacted into place, +3.5 mm Biolox head was also impacted into place, and hip was nicely reduced. She had very good stability. Hip was then copiously pulse lavaged and capsule and short external rotators were repaired together to the posterior aspect of the greater trochanter. Fascia was repaired using interrupted #1 Vicryl sutures and fat was closed in multiple layers. Would was copiously pulse lavaged throughout and closed using cecilia. Sterile dressing and abduction pillow were applied in the OR. The patient was awakened in the OR, was stable on transfer to the recovery room. [id number]/[facility] #: [id number] VINNIE
[2018-10-02] MEDS: Ketorolac INJ* 30 MG/ML 1 ML VIAL IV PUSH SCH ×4 (02:00→21:13)
[2018-10-02] MEDS: D5W 1/2 NS 1000 ML BAG* 1,000 ML IV SCH (03:33)
[2018-10-02] MEDS: ceFAZolin 1 GM ADVAN(*) 1 GM in NS 0.9% 50 ML* 50 ML IVPB SCH ×2 (05:06→12:20)
[2018-10-02] MEDS: oxyCODONE TAB* 5 MG TAB PO PRN ×4 (05:08→21:23)
[2018-10-02] MEDS: Heparin VIAL(*) 5000 UNITS/ML VIAL (FIVE THOUSAND) SUBCUT SCH ×3 (05:09→21:18)
[2018-10-02] MEDS: Acetaminophen TAB* 325 MG PO SCH ×3 (05:58→21:11)
[2018-10-02] MEDS: Magnesium Hydroxide LIQ* 30 ML UDC PO SCH ×2 (07:19→21:13)
[2018-10-02] MEDS: Docusate CAP* 100 MG PO SCH ×2 (07:19→21:12)
[2018-10-02] MEDS: Morphine TAB Extended Release (*) 15 MG TAB.ER PO SCH ×2 (07:20→21:11)
[2018-10-02] MEDS: OLAPARIB 150 MG PO SCH ×2 (07:23→21:11)
[2018-10-02 07:44] LABS: Hematocrit 29 % (35-47); Platelet Count 178 10^3/ul (150-450)
[2018-10-02] MEDS ORDERED: Lactated Ringers 1000 ML Bag* 1,000 ML IV SCH (08:00)
[2018-10-02 08:04] LABS: BUN/Creatinine Ratio 16.2 (8-20); Calcium 8.4 mg/dL (8.6-10.3); EGFR African American 105.7 (>60); EGFR Non-African American 87.4 (>60); INR 1.12 (0.77-1.02); Potassium 4.6 mmol/L (3.5-5.0)
--- NOTE | 2018-10-02 08:54 | PN ---
Progress Note - Progress Note Date of Service: 10/02/18 SOAP: Subjective: in bed with pain well controlled, abductor pillow in place Objective: Vital Signs Temp Pulse Resp BP Pulse Ox 98.6 F 105 18 94/61 97 10/02/18 07:41 10/02/18 07:41 10/02/18 07:54 10/02/18 07:41 10/02/18 07:41 Laboratory Last Values Hgb 10.0 g/dl (12.0-16.0) L 10/02/18 07:35 Hct 29 % (35-47) L 10/02/18 07:35 Plt Count 178 10^3/ul (150-450) 10/02/18 07:35 MPV 8.0 fL (7.4-10.4) 10/02/18 07:35 INR (Anticoag Therapy) 1.12 (0.77-1.02) H 10/02/18 07:35 Sodium 137 mmol/L (135-145) 10/02/18 07:35 Potassium 4.6 mmol/L (3.5-5.0) 10/02/18 07:35 Chloride 106 mmol/L (101-111) 10/02/18 07:35 Carbon Dioxide 25 mmol/L (22-32) 10/02/18 07:35 Anion Gap 6 mmol/L (2-11) 10/02/18 07:35 BUN 12 mg/dL (6-24) 10/02/18 07:35 Creatinine 0.74 mg/dL (0.51-0.95) 10/02/18 07:35 Est GFR ( Amer) 105.7 (>60) 10/02/18 07:35 Est GFR (Non-Af Amer) 87.4 (>60) 10/02/18 07:35 BUN/Creatinine Ratio 16.2 (8-20) 10/02/18 07:35 Glucose 164 mg/dL (70-100) H 10/02/18 07:35 Calcium 8.4 mg/dL (8.6-10.3) L 10/02/18 07:35 Magnesium 2.4 mg/dL (1.9-2.7) 10/01/18 15:35 incision: c/d/i PE: able to dorsi flex/plantar flex, 2+ DP pulse and intact sensation Assessment: s/p right LORENE; POD#1 Plan: 1) PT/OT- WBAT 2) Heparin/Coumadin for DVT prophylaxis 3) Ancef for 24 hours post-op 4) Possible home tomorrow
[2018-10-02] MEDS ORDERED: Warfarin TAB(*) 10 MG PO ONE (17:00)
[2018-10-02] MEDS: QUEtiapine TAB* 300 MG PO SCH (21:12)
[2018-10-03] MEDS: Ketorolac INJ* 30 MG/ML 1 ML VIAL IV PUSH SCH ×2 (02:10→08:28)
[2018-10-03 05:23] LABS: Hematocrit 25 % (35-47); Hemoglobin 8.4 g/dl (12.0-16.0); Mean Platelet Volume 8.2 fL (7.4-10.4); Platelet Count 158 10^3/ul (150-450)
[2018-10-03 05:28] LABS: INR 1.35 (0.77-1.02)
[2018-10-03] MEDS: Acetaminophen TAB* 325 MG PO SCH (05:35)
[2018-10-03] MEDS: Heparin VIAL(*) 5000 UNITS/ML VIAL (FIVE THOUSAND) SUBCUT SCH (05:36)
[2018-10-03 08:28] VITALS: BP 106/60
[2018-10-03] MEDS: Docusate CAP* 100 MG PO SCH (08:28)
[2018-10-03] MEDS: Magnesium Hydroxide LIQ* 30 ML UDC PO SCH (08:28)
[2018-10-03] MEDS: Morphine TAB Extended Release (*) 15 MG TAB.ER PO SCH (08:29)
[2018-10-03] MEDS: OLAPARIB 150 MG PO SCH (08:29)
--- NOTE | 2018-10-03 08:57 | PN ---
Progress Note - Progress Note Date of Service: 10/03/18 SOAP: Subjective: []Pt seen at bedside. She feels well without CP, SOB, dizziness or nausea. Ready for DC to [facility]. Objective: []General: Well appearing, NAD RLE: incision: c/d/i. able to dorsi flex/plantar flex, 2+ DP pulse and intact sensation Calves supple and nontender without erythema, edema or palpable cords Assessment: s/p right LORENE; POD#2 Plan: 1) PT/OT- WBAT 2) Heparin/Coumadin for DVT prophylaxis. Coumadin 8 mg today 3) PM[facility] today Vital Signs Temp 97.8 F 10/03/18 08:25 Pulse 99 10/03/18 08:25 Resp 16 10/03/18 08:29 BP 106/60 10/03/18 08:25 Pulse Ox 98 10/03/18 03:58 Intake & Output 10/02/18 10/03/18 10/03/18 18:59 06:59 18:59 Intake Total 2106 1660 240 Output Total 300 700 Balance 1806 960 240 Intake: IV Fluids 986 D5W 1/2 NS 986 IVPB 1000 LR 1000 Oral 120 1660 240 Output: Urine 300 700 Laboratory Last Values Hgb 8.4 g/dl (12.0-16.0) L 10/03/18 05:15 Hct 25 % (35-47) L 10/03/18 05:15 Plt Count 158 10^3/ul (150-450) 10/03/18 05:15 MPV 8.2 fL (7.4-10.4) 10/03/18 05:15 INR (Anticoag Therapy) 1.35 (0.77-1.02) H 10/03/18 05:15 Sodium 137 mmol/L (135-145) 10/02/18 07:35 Potassium 4.6 mmol/L (3.5-5.0) 10/02/18 07:35 Chloride 106 mmol/L (101-111) 10/02/18 07:35 Carbon Dioxide 25 mmol/L (22-32) 10/02/18 07:35 Anion Gap 6 mmol/L (2-11) 10/02/18 07:35 BUN 12 mg/dL (6-24) 10/02/18 07:35 Creatinine 0.74 mg/dL (0.51-0.95) 10/02/18 07:35 Est GFR ( Amer) 105.7 (>60) 10/02/18 07:35 Est GFR (Non-Af Amer) 87.4 (>60) 10/02/18 07:35 BUN/Creatinine Ratio 16.2 (8-20) 10/02/18 07:35 Glucose 164 mg/dL (70-100) H 10/02/18 07:35 Calcium 8.4 mg/dL (8.6-10.3) L 10/02/18 07:35 Magnesium 2.4 mg/dL (1.9-2.7) 10/01/18 15:35
--- NOTE | 2018-10-03 11:11 | DS ---
AMENDED REPORT NOW INCLUDES DESIGNATED COSIGNER DISCHARGE SUMMARY: DATE OF ADMISSION: 10/01/18 DATE OF DISCHARGE: 10/03/18 to [facility]. PROVIDER: Dr. Flash Larkin.* (DICTATED BY JAVIER TODD) PREOPERATIVE DIAGNOSES: Avascular necrosis of the right hip. OPERATIVE PROCEDURE: Right total hip arthroplasty. HISTORY: Ms. Xie is a 38-year-old female with metastatic cancer. She received radiation treatments and presumably had developed avascular necrosis from this. She had significantly limited motion and function that has been present over 2 years and I discussed with her total hip arthroplasty. She elected for a right total hip arthroplasty. HOSPITAL COURSE: The patient was admitted to [facility] on . She underwent a right total hip arthroplasty without complication. On postop day 1 she was well-appearing in no acute distress; able to dorsiflex and plantarflex; sensation intact distally. On postop day 2, well-appearing in no acute distress; dressing changed; incision clean, dry, and intact; able to dorsiflex and plantarflex, DP 2+ and sensation intact distally. Vital Signs: Temperature 97.8, pulse rate 99, respiratory rate 16, blood pressure 106/60, pulse ox 98. Hemoglobin 8.4, hematocrit 25, INR 1.35. She was deemed to be medically and orthopedically stable for discharge to [facility]. DISCHARGE MEDICATIONS: 1. Seroquel 300 mg p.o. at bedtime. 2. Polyethylene glycol 17 g p.o. b.i.d. p.r.n. 3. Lynparza 150 mg p.o. b.i.d. 4. Morphine sulfate 50 mg p.o. b.i.d. 5. Meloxicam 1 tab p.o. q.a.m. as needed. 6. Acetaminophen 975 mg p.o. q.8 hours. 7. Cyclobenzaprine 10 mg p.o. t.i.d. p.r.n. 8. Docusate 100 mg p.o. b.i.d. 9. Oxycodone 10 mg p.o. q.4 hours p.r.n. 10. Warfarin 2 mg 1 to 3 tabs daily, dose depends on INR. DISCHARGE INSTRUCTIONS: The patient will be discharged to [facility] on 10/03/18. Continue hip precautions. She will need INR draws on Mondays and . Coumadin dosing 8 mg on 10/03/18 while in PMRU till discharge, then orthopedic office to resume dosing. Pain control with oxycodone 5 mg every 4 hours as needed for pain, max 10 tabs per day. Follow up with Dr. Larkin in 4 weeks. JAVIER LEONE [id number]/[facility] #: [id number] MTDCamila
== END 2018-10-03 09:35 | DRG 470 ==
LOC: AA 08:23 → SSU 16:59
PROVIDERS: ADMIT Orthopaedic Surgery; ATTEND Orthopaedic Surgery
PROC: 0SR904A Replacement of Right Hip Joint with Ceramic on Polyethylene Synthetic Substitute, Uncemented, Open Approach (ICD-10-PCS; principal; 2018-10-01 10:30)
DX: M87.851 Other osteonecrosis, right femur (principal); C79.31 Secondary malignant neoplasm of brain; C56.9 Malignant neoplasm of unspecified ovary; M87.852 Other osteonecrosis, left femur; F22 Delusional disorders; E66.9 Obesity, unspecified; Z68.33 Body mass index [BMI] 33.0-33.9, adult; J45.909 Unspecified asthma, uncomplicated; F41.9 Anxiety disorder, unspecified; F32.9 Major depressive disorder, single episode, unspecified; E78.00 Pure hypercholesterolemia, unspecified; Z79.899 Other long term (current) drug therapy; Z91.040 Latex allergy status; Z91.048 Other nonmedicinal substance allergy status; Z82.49 Family history of ischemic heart disease and other diseases of the circulatory system; Z80.9 Family history of malignant neoplasm, unspecified; Z87.891 Personal history of nicotine dependence
CPT/HCPCS: 36415; 72170; 80048; 81025; 83735; 85014; 85018; 85049; 85610; 88304; 88311; A9270-GY; G8978-GP-CJ; G8979-GP-CI; G8987-GO-CK; G8988-GO-CI; J0690; J1100; J1170; J1644; J1885; J2250; J2405; J2704; J2710; J2765; J2795; J3010; J3475

== ENCOUNTER 2018-10-03 07:17 | Inpatient (IN) | payer MEDICARE, MEDICAID ==
[2018-10-03] MEDS ORDERED: Magnesium Hydroxide LIQ* 30 ML UDC PO PRN (13:18)
[2018-10-03] MEDS ORDERED: Senna TAB PO PRN (13:18)
[2018-10-03] MEDS: Heparin VIAL(*) 5000 UNITS/ML VIAL (FIVE THOUSAND) SUBCUT SCH ×2 (16:09→21:30)
[2018-10-03] MEDS ORDERED: Warfarin TAB(*) 7.5 MG PO ONE (17:00)
[2018-10-03] MEDS: Ketorolac INJ* 30 MG/ML 1 ML VIAL IV PUSH SCH ×2 (17:43→18:48)
--- NOTE | 2018-10-03 19:16 | HP ---
ADMISSION HISTORY AND PHYSICAL: DATE OF ADMISSION: 10/03/18 REASON FOR ADMISSION: Right total hip replacement. HISTORY OF PRESENT ILLNESS: Jackelin Xie is a 38-year-old female. The patient developed shortness of breath in 2012. A chest x-ray found a pleural effusion, which was biopsied and found to be malignant from cancer. She was found to have ovarian cancer. She did chemotherapy with carboplatin and developed a neuropathy as a result. She later developed brain metastases and did gamma knife radiation for that. After the brain metastases were discovered, she was on high-dose steroids for a prolonged period of time. She developed avascular necrosis of both hips as a result. The patient had significant pain and had seen me in the pain clinic because of the pain in her hips. She had also seen Dr. Larkin. It was decided that she could have a total hip replacement. She was admitted to [facility] on 10/01/18 and underwent a right total hip replacement on that day. Postoperatively, her course was relatively benign. She did have acute blood loss anemia, but did not require a transfusion. She was felt to have physical therapy and occupational therapy needs. She is now being admitted for inpatient rehab so that she might return to independent living. PAST MEDICAL HISTORY: Significant for the aforementioned ovarian cancer with brain metastases. She had a resection of her tumor done by Dr. Ibarra in 2014. She has a history of asthma as well as depression and possible schizophrenia or schizoaffective disorder. CURRENT MEDICATIONS: Include: 1. Lynparza 150 mg twice a day. 2. She is also on MS Contin 15 mg twice a day. 3. She is on oxycodone. 4. Colace. 5. Senokot. 6. She takes Seroquel at bedtime. 7. Heparin for DVT prophylaxis. 8. She also has started Coumadin. ALLERGIES: To LATEX and NICKEL. SOCIAL HISTORY: The patient is a nonsmoker, nondrinker. She lives by herself in an apartment on [address]. There is 1 step to enter, then there is an elevator inside. REVIEW OF SYSTEMS: The patient reports mild difficulties with constipation. PHYSICAL EXAMINATION VITAL SIGNS: The patient's temperature is 98.7, blood pressure is 125/68, pulse 106, respirations 16. HEENT: Her extraocular movements are intact. Tongue is midline. NECK: Supple. LUNGS: Sound clear to auscultation bilaterally. HEART: Sounds are regular. S1 and S2 were audible. ABDOMEN: Soft and nontender. EXTREMITIES: Her right hip has a wound, which is clean and intact. Peripheral pulses were intact. NEUROLOGIC: She had slightly decreased sensation in her feet. Muscle strength appeared to be 5/5 in the upper extremities. Right lower extremity was about 3/ 5 secondary to pain. Left lower extremity was about 4+/5. FUNCTIONAL EXAM: She transfers with contact guard to min assist. ASSESSMENT: Right total hip replacement in a patient with history of ovarian cancer with brain metastases. PLAN: Integrate her into a comprehensive and therapeutic rehab program with the following goals: 1. Physical Therapy will work with the patient. They are going to work on functional transfer training, ambulation training with a walker. 2. Occupational Therapy will see the patient, work on her activities of daily living including toileting and toilet transfers. 3. Heparin and Coumadin for DVT prophylaxis. We will discontinue her heparin when her INR is therapeutic. 4. Adequate analgesia. 5. Her bowels will be regulated. 6. Operation Specialist will be closely involved to make sure that any services and equipment the patient requires are in place prior to discharge. 7. Family training as appropriate. 8. Advance directives: The patient is a full code. 9. Home with appropriate services. ESTIMATED LENGTH OF STAY: 7 to 10 days. [id number]/[facility] #: [id number] MTDD
[2018-10-03] MEDS: Morphine TAB Extended Release (*) 15 MG TAB.ER PO SCH (21:29)
[2018-10-03] MEDS: QUEtiapine TAB* 300 MG PO SCH (21:29)
[2018-10-03] MEDS: Docusate CAP* 100 MG PO SCH (21:31)
[2018-10-04] MEDS: Heparin VIAL(*) 5000 UNITS/ML VIAL (FIVE THOUSAND) SUBCUT SCH ×3 (05:28→21:06)
[2018-10-04 08:51] LABS: INR 1.79 (0.77-1.02)
[2018-10-04] MEDS: Morphine TAB Extended Release (*) 15 MG TAB.ER PO SCH ×2 (08:55→21:03)
[2018-10-04] MEDS: Docusate CAP* 100 MG PO SCH ×2 (08:55→21:02)
[2018-10-04] MEDS: Warfarin TAB(*) 3 MG PO SCH (17:03)
--- NOTE | 2018-10-04 19:42 | PN ---
Progress Note Date of Service: 10/04/18 Note: ANIKA DAVIS was visited. Therapy notes read and reviewed. She did fairly well with walking today. She has no complaints otherwise. INR up to 1.7. Will lower coumadin to 3 mg, check INR in am Current Medications: Active Medications Generic Name Dose Route Start Last Admin Trade Name Freq PRN Reason Stop Dose Admin Acetaminophen 650 mg 10/03/18 13:18 Tylenol Tab* PO Q6H PRN FEVER/PAIN Docusate Sodium 100 mg 10/03/18 21:00 10/04/18 08:55 Colace Cap* PO 100 mg BID MARÍA Administration Heparin Sodium (Porcine) 5,000 units 10/03/18 14:00 10/04/18 14:42 Heparin Vial(*) SUBCUT 5,000 units Q8HR MARÍA Administration Lactulose 30 ml 10/03/18 18:40 10/03/18 21:28 Lactulose* PO 30 ml Q6H PRN Administration CONSTIPATION Magnesium Hydroxide 30 ml 10/03/18 13:18 10/03/18 16:10 Milk Of Magnesia Liq* PO 30 ml Q6H PRN Administration CONSTIPATION Morphine Sulfate 15 mg 10/03/18 21:00 10/04/18 08:55 Ms Contin(*) PO 15 mg Q12H MARÍA Administration (Lynparza 150 Mg) 150 mg 10/03/18 21:00 10/04/18 08:56 PO Not Given BID MARÍA Oxycodone HCl 5 mg 10/03/18 13:32 Roxycodone Tab* PO Q4H PRN PAIN - MODERATE TO SEVERE Pharmacy Profile Note 1 note 10/03/18 17:00 10/04/18 17:04 Coumadin Daily Reminder* FOLLOW UP 1 note 1700 MARÍA Administration Quetiapine Fumarate 300 mg 10/03/18 21:00 10/03/18 21:29 Seroquel Tab* PO 300 mg BEDTIME MARÍA Administration Senna 2 tab 10/03/18 13:18 Senokot Tab* PO BEDTIME PRN CONSTIPATION Warfarin Sodium 3 mg 10/04/18 17:00 10/04/18 17:03 Coumadin Tab(*) PO 3 mg DAILY@1700 MARÍA Administration Protocol Vital Signs: Vital Signs Temp Pulse Resp BP Pulse Ox 97.9 F 96 18 110/64 98 10/04/18 05:24 10/04/18 05:24 03/07/19 16:45 10/04/18 05:24 10/04/18 05:24 Lab Results: Laboratory Results - last 24 hr 10/04/18 06:21 INR (Anticoag Therapy) 1.79 H Exam: GENERAL: Alert. Sometimes inappropriate LUNGS: Clear bilaterally HEART: Regular rhythm ABDOMEN: Soft, +BS EXTREMITIES: Wound on RLE C/D/I NEUROLOGIC: Alert. Sensation diminished in feet. Muscle strength 5/5 UEs and 3-3 +/5 RLE, 4+/5 LLE Assessment/Plan: 1. Right LORENE: WBAT. PT/OT 2. Ovarian Cancer, metastatic: Stable 3. DVT Prophylaxis: Heparin bridge to coumadin. 4. Advanced DIrectives: Full code 5. Delusional Disorder/Schizophrenia: Seroquel 10/04/18 19:43 10/04/18 19:50
[2018-10-04] MEDS: QUEtiapine TAB* 300 MG PO SCH (21:02)
[2018-10-05 05:19] LABS: ABS Basophils 0 10^3/ul (0-0.2); ABS Eosinophils 0.1 10^3/ul (0-0.6); ABS Lymphocytes 2.7 10^3/ul (1.0-4.8); ABS Monocytes 0.4 10^3/ul (0-0.8); ABS Neutrophils 2.4 10^3/ul (1.5-7.7); ABS Nucleated RBC 0 10^3/ul; Eosinophil % 1.7 %; Hematocrit 24 % (35-47); Hemoglobin 7.8 g/dl (12.0-16.0); Mean Corpuscular HGB Conc 33 g/dl (31-36); Mean Corpuscular Hemoglobin 31 pg (27-31); Mean Corpuscular Volume 93 fL (80-97); Mean Platelet Volume 8.1 fL (7.4-10.4); Nucleated Red Blood Cells % 0.1; Platelet Count 192 10^3/ul (150-450); Red Blood Count 2.54 10^6/ul (4.00-5.40); Red Cell Distribution Width 14 % (10.5-15); White Blood Count 5.7 10^3/ul (3.5-10.8)
[2018-10-05 05:31] LABS: INR 1.59 (0.77-1.02)
[2018-10-05 05:36] LABS: Albumin 2.8 g/dL (3.2-5.2); Albumin/Globulin Ratio 1.2 (1-3); BUN/Creatinine Ratio 22.6 (8-20); Calcium 8.2 mg/dL (8.6-10.3); EGFR African American 129.7 (>60); EGFR Non-African American 107.2 (>60); Globulin 2.4 g/dL (2-4); Potassium 3.9 mmol/L (3.5-5.0); Total Bilirubin 0.3 mg/dL (0.2-1.0); Total Protein 5.2 g/dL (6.4-8.9)
[2018-10-05] MEDS: Heparin VIAL(*) 5000 UNITS/ML VIAL (FIVE THOUSAND) SUBCUT SCH ×3 (06:48→21:41)
[2018-10-05] MEDS: Docusate CAP* 100 MG PO SCH ×2 (08:56→21:41)
[2018-10-05] MEDS: Morphine TAB Extended Release (*) 15 MG TAB.ER PO SCH ×2 (08:57→21:41)
[2018-10-05] MEDS: oxyCODONE TAB* 5 MG TAB PO PRN ×2 (10:01→16:47)
--- NOTE | 2018-10-05 15:39 | PMRUTEAM ---
PMRU: Team Meeting Current Status: Nursing: Current Status Skin Deviations [Right Hip] Incision Skin Deviation Description [ incision intact with clips. washed with soap and Right Hip] water. mod amount serosang drainage distally. new telfa and 4x4 applied. Physical Therapy: Current Status Bed Mobility Assistance Min Assist Transfer Mobility Assistance Supervision Transfer/Bed Mobility Rolling Walker Recommended Devices Ambulation Assistance Contact Guard Assist Ambulation Assistive Devices Rolling Walker Number of Feet Patient 150 Ambulated Ambulation Comment antalgic gait Stairs Assistance Contact Guard Assist Stairs Recommended Devices Two Rails Number of Stairs 5 Objective Comments step to pattern ascend/descending stairs Occupational Therapy: Current Status Upper Body Dressing Min Assist Lower Body Dressing Supervision Bathing Contact Guard Assist Toileting Contact Guard Assist Toilet Transfer Contact Guard Assist Shower Transfer Contact Guard Assist Eating Independent Rec Therapy: Current Status Summary of Assessment and Patient was open to meeting with chart writer to discuss Clinical Impression her leisure lifestyle prior to admission. Patient presented with dysphoric mood, restricted affect that would brighten at times throughout our conversation. Patient was able to identify multiple interests. Patient would often bring up her mother, sister and ex- and call them " psychopaths" and "pathological liars." Treatment Goals Patient will engage in recreation and leisure activities while on the unit. Treatment Plan Provide and encourage involvement in RT services. Social Work: Current Status Discharge Plan with home care svs and support from friend Potential for Family Training n/a Anticipated Discharge Home Destination Discharge With VNS and support from friend Goals: Physical Therapy: Initial Goals Bed Mobility Assistance Independent Transfer Mobility Assistance Independent Transfer/Bed Mobility Rolling Walker Recommended Devices Ambulation Independent Ambulation Recommended Devices Rolling Walker Ambulation Distance 150 Stairs Assistance Independent Stair Recommended Devices One Rail Number of Stairs 5 Home Exercise Program Independent Assistance Physical Therapy: Updated Goals Transfer/Bed Mobility Rolling Walker Recommended Devices Occupational Therapy: Initial Goals Goals to be Completed in (Days 5-7 days ) Upper Body Bathing Routine Modified Independent with Lower Body Bathing Routine Modified Independent with Upper Body Dressing Routine Independent Lower Body Dressing Routine Modified Independent with Toilet Hygeine and Clothing Modified Independent with Management Routine Toilet Transfer Routine Modified Independent with Tub Transfer Routine Modified Independent with Functional Transfers for ADL Modified Independent with Grooming Routine Independent Feeding Routine Independent Social Work: Goals Discharge Plan with home care svs and support from friend Potential for Family Training n/a Anticipated Discharge Home Destination Discharge With VNS and support from friend Care Plan: Care Plan ADL's - Improve/Maintain Start: 10/03/18 15:58 Freq: DAILY Status: Active Target: Protocol: Activity Type Activity Date Activity User E-Sign Co-Sign Detail Recorded Client Recorded Date Recorded By Document 10/04/18 15:15 [id number] [id number] 10/04/18 15:15 [id number] 10/04/18 15:15 PMRU Outcome: ADL's/ADL Transfers Orders/Interventions Occupational Therapy Evaluation & Treatment Device Yes Patient to receive OT 5x/wk for 60-120 Therex min/day Self Care Management Group Therapy Neuromuscular ReEducation UE/LE ADL's with Assist Yes ADL Transfers with Assist Yes Toileting: Transfers,Clothing Management Yes ,Hygeine w/Assist Light Kitchen/Laundry w/Assist Yes Progression Toward Outcome/Goals Progressing Outcome/Goals Met Pt participated well in treatment session, can be anxious at times, but does well with encouragement. Coping/Psych-Improve/Maintain Start: 10/03/18 14:57 Freq: QSHIFT Status: Active Target: Protocol: Activity Type Activity Date Activity User E-Sign Co-Sign Detail Recorded Client Recorded Date Recorded By Document 10/05/18 09:01 [id number] [email or web address] 10/05/18 09:04 [id number] 10/05/18 09:01 PMRU Outcome: Coping/Psychosocial Coping Outcome/Goals Verbalization of Acceptance of Rehab Admit Verbalization of Sense of Control Over Health Status Utilization of Appropriate Problem Solving Techniques Willingness to Participate in Treatment Plan and Basic Needs Psychosocial Outcome/Goals Maintain/ Improve Emotional Health Demonstrates Knowledge of Healthy Coping Mechanisms Available Cooperate/ Participate in Plan Progression Toward Outcome/Goals - Progressing Coping Progression Toward Outcome/Goals - Progressing Psychosocial DVT Prophylaxis- Improve/Maintain Start: 10/03/18 14:57 Freq: QSHIFT Status: Active Target: Protocol: Activity Type Activity Date Activity User E-Sign Co-Sign Detail Recorded Client Recorded Date Recorded By Document 10/05/18 09:01 [id number] [email or web address] 10/05/18 09:04 [id number] 10/05/18 09:01 PMRU Outcome: DVT Prophylaxis Outcome/Goals Remains Free of DVT Complies with DVT Prophylaxis /Treatment Demonstrates Knowledge of DVT Prevention/ Treatment Progression Toward Outcome/Goals Progressing Discharge Planning - Improve/Maintain Start: 10/03/18 14:57 Freq: DAILY Status: Active Target: Protocol: Activity Type Activity Date Activity User E-Sign Co-Sign Detail Recorded Client Recorded Date Recorded By Document 10/05/18 02:19 [id number] [id number] 10/05/18 03:01 [id number] 10/05/18 02:19 PMRU Outcome: Discharge Planning Update Patient Family No Outcome/Goals Demonstrates Understanding of Discharge Plan Progression Toward Outcome/Goals Progressing Education-Improve/Maintain Start: 10/03/18 14:57 Freq: QSHIFT Status: Active Target: Protocol: Activity Type Activity Date Activity User E-Sign Co-Sign Detail Recorded Client Recorded Date Recorded By Document 10/05/18 09:01 [id number] [email or web address] 10/05/18 09:04 [id number] 10/05/18 09:01 PMRU Outcome: Education Outcome/Goals Demonstrates Skills Encourage Questions Progression Toward Outcome/Goals Progressing /GI-Improve/Maintain Start: 10/03/18 14:57 Freq: QSHIFT Status: Active Target: Protocol: Activity Type Activity Date Activity User E-Sign Co-Sign Detail Recorded Client Recorded Date Recorded By Document 10/05/18 09:01 [id number] [email or web address] 10/05/18 09:04 [id number] 10/05/18 09:01 PMRU Outcome: Genitourinary/ Gastrointestinal Genitourinary- Outcome/Goals Remain Free of Hospital- Acquired UTI Gastrointestinal-Outcome/Goals Maintain/ Achieve Bowel Regularity in Accordance with Pt's Baseline Prevent Constipation Laxatives as Ordered Progression Toward Outcome/Goals - Progressing Progression Toward Outcome/Goals - GI Progressing Outcome/Goals Met Comment colace given this am Medication Administration Start: 10/03/18 14:57 Freq: QSHIFT Status: Active Target: Protocol: Activity Type Activity Date Activity User E-Sign Co-Sign Detail Recorded Client Recorded Date Recorded By Document 10/05/18 09:01 [id number] [email or web address] 10/05/18 09:04 [id number] 10/05/18 09:01 PMRU Outcome: Medication Administration Assess Patient Knowledge/Teach Med Yes Education for all Meds Outcome/Goals Patient Independent with Medication Administration at Home Progression Towards Outcome/Goals Progressing Is Patient Going Home on Lovenox? No Neurological- Improve/Maintain Start: 10/03/18 14:57 Freq: QSHIFT Status: Active Target: Protocol: Activity Type Activity Date Activity User E-Sign Co-Sign Detail Recorded Client Recorded Date Recorded By Document 10/05/18 09:01 [id number] [email or web address] 10/05/18 09:04 [id number] 10/05/18 09:01 PMRU Outcome: Neurological Weakness/Aphasia Weakness Outcome/Goals Maintain/ Achieve Baseline Neurological Status Prevent Avoidable Neurological Decline Demonstrate Knowledge of Prevention/Tx of Neuro Disorders/ Complication Maintain/ Improve Strength/ROM Progression Toward Outcome/Goals Progressing Pain/Comfort- Improve/Maintain Start: 10/03/18 14:57 Freq: QSHIFT Status: Active Target: Protocol: Activity Type Activity Date Activity User E-Sign Co-Sign Detail Recorded Client Recorded Date Recorded By Document 10/05/18 09:01 [id number] [email or web address] 10/05/18 09:04 [id number] 10/05/18 09:01 PMRU Outcome: Pain/Comfort Outcome/Goals Demonstrates Knowledge and Use of Available Comfort Measures Achieves Acceptable Comfort/Pain Level as Determined by Patient/Condit Maintain Comfort Level Allowing Patient to Fully Participate in Rehab Progression Toward Outcome/Goals Progressing Outcome/Goals Met Comment routine MS Contin given Safety- Improve/Maintain Start: 10/03/18 14:57 Freq: QSHIFT Status: Active Target: Protocol: Activity Type Activity Date Activity User E-Sign Co-Sign Detail Recorded Client Recorded Date Recorded By Document 10/05/18 09:01 [id number] [email or web address] 10/05/18 09:04 [id number] 10/05/18 09:01 PMRU Outcome: Safety Outcome/Goals Remain Free of Injury or Harm Cooperates with Safety Measures for Least Restrictive Environment Prevent Falls/ Injury Progression Toward Outcome/Goals Progressing Skin- Improve/Maintain Start: 10/03/18 14:57 Freq: QSHIFT Status: Active Target: Protocol: Activity Type Activity Date Activity User E-Sign Co-Sign Detail Recorded Client Recorded Date Recorded By Document 10/05/18 09:01 [id number] [email or web address] 10/05/18 09:04 [id number] 10/05/18 09:01 PMRU Outcome: Skin Skin Risk Level Low Skin Orders Dressing Change Turn/Position q2hr While in Bed Outcome/Goals Maintain/ Improve Skin Intergrity Surgical Incisions Healing Progression Toward Outcome/Goals Progressing Medicine Note: Length of Stay: 4 days Anticipated Discharge Destination: Home Tentative Discharge Date: 10/09/18 Discharged to: Home
[2018-10-05] MEDS: Warfarin TAB(*) 3 MG PO SCH (16:47)
--- NOTE | 2018-10-05 18:48 | PN ---
Progress Note Date of Service: 10/05/18 Note: ANIKA DAVIS was visited. Therapy notes read and reviewed. She was discussed in interdisciplinary plan of care rounds. She is moving ok and she feels good. Her INR fell today and I will increase her Coumadin to 6 mg Current Medications: Active Medications Generic Name Dose Route Start Last Admin Trade Name Freq PRN Reason Stop Dose Admin Acetaminophen 650 mg 10/03/18 13:18 Tylenol Tab* PO Q6H PRN FEVER/PAIN Docusate Sodium 100 mg 10/03/18 21:00 10/05/18 08:56 Colace Cap* PO 100 mg BID MARÍA Administration Heparin Sodium (Porcine) 5,000 units 10/03/18 14:00 10/05/18 14:24 Heparin Vial(*) SUBCUT 5,000 units Q8HR MARÍA Administration Lactulose 30 ml 10/03/18 18:40 10/03/18 21:28 Lactulose* PO 30 ml Q6H PRN Administration CONSTIPATION Magnesium Hydroxide 30 ml 10/03/18 13:18 10/03/18 16:10 Milk Of Magnesia Liq* PO 30 ml Q6H PRN Administration CONSTIPATION Morphine Sulfate 15 mg 10/03/18 21:00 10/05/18 08:57 Ms Contin(*) PO 15 mg Q12H MARÍA Administration (Lynparza 150 Mg) 150 mg 10/03/18 21:00 10/05/18 08:59 PO Not Given BID MARÍA Oxycodone HCl 5 mg 10/03/18 13:32 10/05/18 16:47 Roxycodone Tab* PO 5 mg Q4H PRN Administration PAIN - MODERATE TO SEVERE Pharmacy Profile Note 1 note 10/03/18 17:00 10/05/18 16:47 Coumadin Daily Reminder* FOLLOW UP 1 note 1700 MARÍA Administration Quetiapine Fumarate 300 mg 10/03/18 21:00 10/04/18 21:02 Seroquel Tab* PO 300 mg BEDTIME MARÍA Administration Senna 2 tab 10/03/18 13:18 Senokot Tab* PO BEDTIME PRN CONSTIPATION Warfarin Sodium 6 mg 10/06/18 17:00 Coumadin Tab(*) PO DAILY@1700 MARÍA Protocol Warfarin Sodium 3 mg 10/05/18 19:00 Coumadin Tab(*) PO 10/05/18 19:01 ONCE@1700 ONE Protocol Vital Signs: Vital Signs Temp Pulse Resp BP Pulse Ox 99.2 F 105 16 116/69 100 10/05/18 15:48 10/05/18 15:48 10/05/18 16:47 10/05/18 15:48 10/05/18 15:48 Lab Results: Laboratory Results - last 24 hr 10/05/18 10/05/18 10/05/18 05:01 05:01 05:01 WBC 5.7 RBC 2.54 L Hgb 7.8 L Hct 24 L MCV 93 MCH 31 MCHC 33 RDW 14 Plt Count 192 MPV 8.1 Neut % (Auto) 42.6 Lymph % (Auto) 48.0 [place] % (Auto) 7.1 Eos % (Auto) 1.7 Baso % (Auto) 0.6 Absolute Neuts (auto) 2.4 Absolute Lymphs (auto) 2.7 Absolute Monos (auto) 0.4 Absolute Eos (auto) 0.1 Absolute Basos (auto) 0 Absolute Nucleated RBC 0 Nucleated RBC % 0.1 INR (Anticoag Therapy) 1.59 H Sodium 139 Potassium 3.9 Chloride 107 Carbon Dioxide 28 Anion Gap 4 BUN 14 Creatinine 0.62 Est GFR ( Amer) 129.7 Est GFR (Non-Af Amer) 107.2 BUN/Creatinine Ratio 22.6 H Glucose 104 H Calcium 8.2 L Total Bilirubin 0.30 AST 17 ALT 14 Alkaline Phosphatase 70 Total Protein 5.2 L Albumin 2.8 L Globulin 2.4 Albumin/Globulin Ratio 1.2 Exam: GENERAL: Alert. Sometimes inappropriate LUNGS: Clear bilaterally HEART: Regular rhythm ABDOMEN: Soft, +BS EXTREMITIES: Wound on RLE C/D/I NEUROLOGIC: Alert. Sensation diminished in feet. Muscle strength 5/5 UEs and 3-3 +/5 RLE, 4+/5 LLE Assessment/Plan: 1. Right LORENE: WBAT. PT/OT 2. Ovarian Cancer, metastatic: Stable. Lynparza 3. DVT Prophylaxis: Heparin bridge to coumadin. Increase Coumadin to 6 mg, INR in am 4. Advanced DIrectives: Full code 5. Delusional Disorder/Schizophrenia: Seroquel 10/05/18 18:48
[2018-10-05] MEDS ORDERED: Warfarin TAB(*) 3 MG PO ONE ×2 (19:00→22:00)
[2018-10-05] MEDS: QUEtiapine TAB* 300 MG PO SCH (21:41)
[2018-10-05] MEDS: LYNPARZA 150 MG PO SCH (21:57)
[2018-10-06] MEDS: oxyCODONE TAB* 5 MG TAB PO PRN ×2 (03:19→10:14)
[2018-10-06] MEDS: Heparin VIAL(*) 5000 UNITS/ML VIAL (FIVE THOUSAND) SUBCUT SCH ×3 (05:16→21:44)
[2018-10-06 07:33] LABS: INR 1.26 (0.77-1.02)
[2018-10-06] MEDS: Morphine TAB Extended Release (*) 15 MG TAB.ER PO SCH (09:56)
[2018-10-06] MEDS: Docusate CAP* 100 MG PO SCH ×2 (09:56→21:20)
[2018-10-06] MEDS: LYNPARZA 150 MG PO SCH ×2 (09:56→21:20)
[2018-10-06] MEDS ORDERED: Morphine ORAL.SOLN 10 mg* 2 MG/ML UDC 5 ml PO PRN (15:55)
--- NOTE | 2018-10-06 16:02 | PN ---
Progress Note Date of Service: 10/06/18 Note: AINKA DAVIS was visited. Therapy notes read and reviewed. Her INR continues to fall. I will order 7.5 mg of Coumadin daily. She also has her Lynparza and states she takes two pills twice a day Current Medications: Active Medications Generic Name Dose Route Start Last Admin Trade Name Freq PRN Reason Stop Dose Admin Acetaminophen 650 mg 10/03/18 13:18 Tylenol Tab* PO Q6H PRN FEVER/PAIN Docusate Sodium 100 mg 10/03/18 21:00 10/06/18 09:56 Colace Cap* PO 100 mg BID MARÍA Administration Heparin Sodium (Porcine) 5,000 units 10/03/18 14:00 10/06/18 14:31 Heparin Vial(*) SUBCUT 5,000 units Q8HR MARÍA Administration Lactulose 30 ml 10/03/18 18:40 10/03/18 21:28 Lactulose* PO 30 ml Q6H PRN Administration CONSTIPATION Magnesium Hydroxide 30 ml 10/03/18 13:18 10/03/18 16:10 Milk Of Magnesia Liq* PO 30 ml Q6H PRN Administration CONSTIPATION Oxycodone HCl 5 mg 10/03/18 13:32 10/06/18 10:14 Roxycodone Tab* PO 5 mg Q4H PRN Administration PAIN - MODERATE TO SEVERE Pharmacy Profile Note 1 note 10/03/18 17:00 10/05/18 16:47 Coumadin Daily Reminder* FOLLOW UP 1 note 1700 MARÍA Administration Quetiapine Fumarate 300 mg 10/03/18 21:00 10/05/18 21:41 Seroquel Tab* PO 300 mg BEDTIME MARÍA Administration Senna 2 tab 10/03/18 13:18 Senokot Tab* PO BEDTIME PRN CONSTIPATION Warfarin Sodium 7.5 mg 10/06/18 17:00 Coumadin Tab(*) PO DAILY@1700 [facility] Protocol Vital Signs: Vital Signs Temp Pulse Resp BP Pulse Ox 99.1 F 108 14 116/67 99 10/06/18 15:29 10/06/18 15:29 10/06/18 15:29 10/06/18 15:29 10/06/18 15:29 Lab Results: Laboratory Results - last 24 hr 10/06/18 07:20 INR (Anticoag Therapy) 1.26 H Exam: GENERAL: Alert. Sometimes inappropriate LUNGS: Clear bilaterally HEART: Regular rhythm ABDOMEN: Soft, +BS EXTREMITIES: Wound on RLE C/D/I NEUROLOGIC: Alert. Sensation diminished in feet. Muscle strength 5/5 UEs and 3-3 +/5 RLE, 4+/5 LLE Assessment/Plan: 1. Right LORENE: WBAT. PT/OT 2. Ovarian Cancer, metastatic: Stable. Lynparza 3. DVT Prophylaxis: Heparin bridge to coumadin. Increase Coumadin to 7.5 mg, INR in am 4. Advanced DIrectives: Full code 5. Delusional Disorder/Schizophrenia: Vladimiroquel 10/06/18 16:03
[2018-10-06] MEDS ORDERED: Warfarin TAB(*) 3 MG PO SCH (17:00)
[2018-10-06] MEDS ORDERED: Warfarin TAB(*) 7.5 MG PO SCH (17:00)
[2018-10-06] MEDS: Acetaminophen TAB* 325 MG PO PRN (18:09)
[2018-10-06] MEDS: QUEtiapine TAB* 300 MG PO SCH (21:20)
[2018-10-06 22:07] LABS: Urine Appearance Clear; Urine Bilirubin Negative (Negative); Urine Blood Negative (Negative); Urine Color Yellow; Urine Glucose Negative (Negative); Urine Ketones Negative (Negative); Urine Nitrite Negative (Negative); Urine Protein Negative (Negative); Urine Specific Gravity 1.018 (1.010-1.030); Urine Urobilinogen Negative (Negative)
[2018-10-07] MEDS: Heparin VIAL(*) 5000 UNITS/ML VIAL (FIVE THOUSAND) SUBCUT SCH ×3 (05:40→21:05)
[2018-10-07] MEDS: Acetaminophen TAB* 325 MG PO PRN (10:18)
[2018-10-07] MEDS: Docusate CAP* 100 MG PO SCH ×2 (10:19→21:04)
[2018-10-07] MEDS: LYNPARZA 150 MG PO SCH ×2 (10:19→21:05)
--- NOTE | 2018-10-07 15:36 | PN ---
Progress Note Date of Service: 10/07/18 Note: ANIKA DAVIS was visited. Therapy notes read and reviewed. Unable to get blood for INR this am. Will d/c Warfarin and change to Lovenox in am. Current Medications: Active Medications Generic Name Dose Route Start Last Admin Trade Name Freq PRN Reason Stop Dose Admin Acetaminophen 650 mg 10/03/18 13:18 10/07/18 10:18 Tylenol Tab* PO 650 mg Q6H PRN Administration FEVER/PAIN Docusate Sodium 100 mg 10/03/18 21:00 10/07/18 10:19 Colace Cap* PO 100 mg BID MARÍA Administration Heparin Sodium (Porcine) 5,000 units 10/03/18 14:00 10/07/18 14:40 Heparin Vial(*) SUBCUT 5,000 units Q8HR MARÍA Administration Lactulose 30 ml 10/03/18 18:40 10/03/18 21:28 Lactulose* PO 30 ml Q6H PRN Administration CONSTIPATION Magnesium Hydroxide 30 ml 10/03/18 13:18 10/03/18 16:10 Milk Of Magnesia Liq* PO 30 ml Q6H PRN Administration CONSTIPATION Non-Formulary Medication 300 mg 10/06/18 21:00 10/07/18 10:19 Lynparza PO 300 mg 0900,2100 MARÍA Administration Oxycodone HCl 5 mg 10/03/18 13:32 10/06/18 10:14 Roxycodone Tab* PO 5 mg Q4H PRN Administration PAIN - MODERATE TO SEVERE Pharmacy Profile Note 1 note 10/03/18 17:00 10/06/18 17:15 Coumadin Daily Reminder* FOLLOW UP 1 note 1700 MARÍA Administration Quetiapine Fumarate 300 mg 10/03/18 21:00 10/06/18 21:20 Seroquel Tab* PO 300 mg BEDTIME MARÍA Administration Senna 2 tab 10/03/18 13:18 Senokot Tab* PO BEDTIME PRN CONSTIPATION Vital Signs: Vital Signs Temp Pulse Resp BP Pulse Ox 98.6 F 107 18 113/70 95 10/07/18 04:00 10/07/18 04:00 10/07/18 08:00 10/07/18 04:00 10/07/18 08:00 Lab Results: Laboratory Results - last 24 hr 10/06/18 21:47 Urine Color Yellow Urine Appearance Clear Urine pH 6.0 Ur Specific [place] 1.018 Urine Protein Negative Urine Ketones Negative Urine Blood Negative Urine Nitrate Negative Urine Bilirubin Negative Urine Urobilinogen Negative Ur Leukocyte Esterase Negative Urine Glucose Negative Exam: GENERAL: Alert. Sometimes inappropriate LUNGS: Clear bilaterally HEART: Regular rhythm ABDOMEN: Soft, +BS EXTREMITIES: Wound on RLE C/D/I NEUROLOGIC: Alert. Sensation diminished in feet. Muscle strength 5/5 UEs and 3-3 +/5 RLE, 4+/5 LLE Assessment/Plan: 1. Right LORENE: WBAT. PT/OT 2. Ovarian Cancer, metastatic: Stable. Lynparza 3. DVT Prophylaxis: Heparin. Will change to Lovenox tomorrow. 4. Advanced DIrectives: Full code 5. Delusional Disorder/Schizophrenia: Fran 10/07/18 15:37
[2018-10-07] MEDS: QUEtiapine TAB* 300 MG PO SCH (21:04)
[2018-10-07] MEDS: oxyCODONE TAB* 5 MG TAB PO PRN (21:04)
[2018-10-08] MEDS: oxyCODONE TAB* 5 MG TAB PO PRN ×3 (09:23→20:02)
[2018-10-08] MEDS: LYNPARZA 150 MG PO SCH ×2 (09:24→20:04)
[2018-10-08] MEDS: Enoxaparin(*) 40 MG/0.4 ML SYR SUBCUT SCH (09:25)
[2018-10-08] MEDS: Docusate CAP* 100 MG PO SCH ×2 (09:25→20:03)
[2018-10-08 12:13] LABS: ABS Basophils 0 10^3/ul (0-0.2); ABS Eosinophils 0.1 10^3/ul (0-0.6); ABS Lymphocytes 1.9 10^3/ul (1.0-4.8); ABS Monocytes 0.5 10^3/ul (0-0.8); ABS Neutrophils 2.8 10^3/ul (1.5-7.7); ABS Nucleated RBC 0 10^3/ul; Eosinophil % 2.2 %; Hematocrit 23 % (35-47); Hemoglobin 7.7 g/dl (12.0-16.0); Lymphocyte % 35.2 %; Mean Corpuscular HGB Conc 33 g/dl (31-36); Mean Corpuscular Hemoglobin 31 pg (27-31); Mean Corpuscular Volume 93 fL (80-97); Nucleated Red Blood Cells % 0.1; Platelet Count 226 10^3/ul (150-450); Red Blood Count 2.51 10^6/ul (4.00-5.40); Red Cell Distribution Width 14 % (10.5-15); White Blood Count 5.3 10^3/ul (3.5-10.8)
[2018-10-08 12:28] LABS: INR 1.39 (0.77-1.02)
[2018-10-08] MEDS: Acetaminophen TAB* 325 MG PO PRN (17:11)
--- NOTE | 2018-10-08 18:15 | PN ---
Progress Note Date of Service: 10/08/18 Note: ANIKA DAVIS was visited. Therapy notes read and reviewed. She is doing fairly well. She will go home MondayOctober 10. She is learning how to do Lovenox injections. Current Medications: Active Medications Generic Name Dose Route Start Last Admin Trade Name Freq PRN Reason Stop Dose Admin Acetaminophen 650 mg 10/03/18 13:18 10/08/18 17:11 Tylenol Tab* PO 650 mg Q6H PRN Administration FEVER/PAIN Docusate Sodium 100 mg 10/03/18 21:00 10/08/18 09:25 Colace Cap* PO 100 mg BID MARÍA Administration Enoxaparin Sodium 40 mg 10/08/18 09:00 10/08/18 09:25 Lovenox(*) SUBCUT 40 mg Q24H MARÍA Administration Lactulose 30 ml 10/03/18 18:40 10/03/18 21:28 Lactulose* PO 30 ml Q6H PRN Administration CONSTIPATION Magnesium Hydroxide 30 ml 10/03/18 13:18 10/03/18 16:10 Milk Of Magnesia Liq* PO 30 ml Q6H PRN Administration CONSTIPATION Non Formulary Med* ( 300 mg 10/06/18 21:00 10/08/18 09:24 Lynparza 150mg PO 300 mg Tablet) 0900,2100 [facility] Administration Oxycodone HCl 5 mg 10/03/18 13:32 10/08/18 13:27 Roxycodone Tab* PO 5 mg Q4H PRN Administration PAIN - MODERATE TO SEVERE Pharmacy Profile Note 1 note 10/03/18 17:00 10/08/18 17:08 Coumadin Daily Reminder* FOLLOW UP Not Given 1700 [facility] Quetiapine Fumarate 300 mg 10/03/18 21:00 10/07/18 21:04 Seroquel Tab* PO 300 mg BEDTIME MARÍA Administration Senna 2 tab 10/03/18 13:18 Senokot Tab* PO BEDTIME PRN CONSTIPATION Vital Signs: Vital Signs Temp Pulse Resp BP Pulse Ox 98.2 F 100 16 108/57 95 10/08/18 06:07 10/08/18 06:07 10/08/18 13:27 10/08/18 06:07 10/08/18 06:07 Lab Results: Laboratory Results - last 24 hr 10/08/18 10/08/18 11:50 11:50 WBC 5.3 RBC 2.51 L Hgb 7.7 L Hct 23 L MCV 93 MCH 31 MCHC 33 RDW 14 Plt Count 226 MPV 8.0 Neut % (Auto) 53.3 Lymph % (Auto) 35.2 [place] % (Auto) 8.7 Eos % (Auto) 2.2 Baso % (Auto) 0.6 Absolute Neuts (auto) 2.8 Absolute Lymphs (auto) 1.9 Absolute Monos (auto) 0.5 Absolute Eos (auto) 0.1 Absolute Basos (auto) 0 Absolute Nucleated RBC 0 Nucleated RBC % 0.1 INR (Anticoag Therapy) 1.39 H Exam: GENERAL: Alert. Sometimes inappropriate LUNGS: Clear bilaterally HEART: Regular rhythm ABDOMEN: Soft, +BS EXTREMITIES: Wound on RLE C/D/I NEUROLOGIC: Alert. Sensation diminished in feet. Muscle strength 5/5 UEs and 3-3 +/5 RLE, 4+/5 LLE Assessment/Plan: 1. Right LOREEN: WBAT. PT/OT 2. Ovarian Cancer, metastatic: Stable. Lynparza 3. DVT Prophylaxis: Lovenox 4. Advanced DIrectives: Full code 5. Delusional Disorder/Schizophrenia: Seroquel 6. Anemia: Stable 10/08/18 18:15
[2018-10-08] MEDS: QUEtiapine TAB* 300 MG PO SCH (20:03)
[2018-10-09] MEDS: Docusate CAP* 100 MG PO SCH ×2 (07:38→19:58)
[2018-10-09] MEDS: LYNPARZA 150 MG PO SCH ×2 (07:38→19:58)
[2018-10-09] MEDS: Enoxaparin(*) 40 MG/0.4 ML SYR SUBCUT SCH (07:39)
[2018-10-09] MEDS: oxyCODONE TAB* 5 MG TAB PO PRN (07:39)
--- NOTE | 2018-10-09 12:25 | PMRUTEAM ---
PMRU: Team Meeting Current Status: Nursing: Current Status Skin Deviations [Right Hip] Incision Skin Deviation Description [ dressing to distal incision cdi Right Hip] Physical Therapy: Current Status Bed Mobility Assistance Contact Guard Assist Transfer Mobility Assistance Supervision Transfer/Bed Mobility Rolling Walker Recommended Devices Ambulation Assistance Supervision Ambulation Assistive Devices Rolling Walker Number of Feet Patient 150 Ambulated Ambulation Comment antalgic gait Stairs Assistance Supervision Stairs Recommended Devices Two Rails Number of Stairs 2x2 Objective Comments step to pattern ascend/descending stairs Occupational Therapy: Current Status Upper Body Dressing Supervision Lower Body Dressing Supervision Bathing Ind with Adaptive Equip Toileting Ind with Adaptive Equip Toilet Transfer Ind with Adaptive Equip Shower Transfer Contact Guard Assist Eating Independent Rec Therapy: Current Status Summary of Assessment and Pt. has engaged in one session (amauri). Pt. was Clinical Impression open to conversation - euthymic, talkative. Pt. expressed interest in continuing RT services. Treatment Goals Pt. will continue to engage in leisure while on the unit. Treatment Plan Continue to provide leisure activities. Social Work: Current Status Discharge Plan return home with home care svs and support from her friend Potential for Family Training n/a Anticipated Discharge Home Destination Discharge With home care svs and support from her friend Goals: Physical Therapy: Initial Goals Bed Mobility Assistance Independent Transfer Mobility Assistance Independent Transfer/Bed Mobility Rolling Walker Recommended Devices Ambulation Independent Ambulation Recommended Devices Rolling Walker Ambulation Distance 150 Stairs Assistance Independent Stair Recommended Devices One Rail Number of Stairs 5 Home Exercise Program Independent Assistance Physical Therapy: Updated Goals Transfer/Bed Mobility Rolling Walker Recommended Devices Occupational Therapy: Initial Goals Goals to be Completed in (Days 5-7 days ) Upper Body Bathing Routine Modified Independent with Lower Body Bathing Routine Modified Independent with Upper Body Dressing Routine Independent Lower Body Dressing Routine Modified Independent with Toilet Hygeine and Clothing Modified Independent with Management Routine Toilet Transfer Routine Modified Independent with Tub Transfer Routine Modified Independent with Functional Transfers for ADL Modified Independent with Grooming Routine Independent Feeding Routine Independent Social Work: Goals Discharge Plan return home with home care svs and support from her friend Potential for Family Training n/a Anticipated Discharge Home Destination Discharge With home care svs and support from her friend Care Plan: Care Plan ADL's - Improve/Maintain Start: 10/03/18 15:58 Freq: DAILY Status: Active Target: Protocol: Activity Type Activity Date Activity User E-Sign Co-Sign Detail Recorded Client Recorded Date Recorded By Document 10/08/18 16:01 [id number] 10/08/18 16:02 [id number] 10/08/18 16:01 PMRU Outcome: ADL's/ADL Transfers Orders/Interventions Occupational Therapy Evaluation & Treatment Device Yes Patient to receive OT 5x/wk for 60-120 Therex min/day Self Care Management Group Therapy Neuromuscular ReEducation UE/LE ADL's with Assist Yes ADL Transfers with Assist Yes Toileting: Transfers,Clothing Management Yes ,Hygeine w/Assist Light Kitchen/Laundry w/Assist Yes Progression Toward Outcome/Goals Progressing Outcome/Goals Met Pt met majority of OT goals. Anticipatd she will meet her d /c date to return home safely. Coping/Psych-Improve/Maintain Start: 10/03/18 14:57 Freq: QSHIFT Status: Active Target: Protocol: Activity Type Activity Date Activity User E-Sign Co-Sign Detail Recorded Client Recorded Date Recorded By Document 10/09/18 07:44 [id number] 10/09/18 08:00 [id number] 10/09/18 07:44 PMRU Outcome: Coping/Psychosocial Coping Outcome/Goals Verbalization of Acceptance of Rehab Admit Verbalization of Sense of Control Over Health Status Utilization of Appropriate Problem Solving Techniques Willingness to Participate in Treatment Plan and Basic Needs Psychosocial Outcome/Goals Maintain/ Improve Emotional Health Demonstrates Knowledge of Healthy Coping Mechanisms Available Cooperate/ Participate in Plan Progression Toward Outcome/Goals - Progressing Coping Progression Toward Outcome/Goals - Progressing Psychosocial DVT Prophylaxis- Improve/Maintain Start: 10/03/18 14:57 Freq: QSHIFT Status: Active Target: Protocol: Activity Type Activity Date Activity User E-Sign Co-Sign Detail Recorded Client Recorded Date Recorded By Document 10/09/18 07:44 [id number] 10/09/18 08:00 [id number] 10/09/18 07:44 PMRU Outcome: DVT Prophylaxis Outcome/Goals Remains Free of DVT Complies with DVT Prophylaxis /Treatment Demonstrates Knowledge of DVT Prevention/ Treatment Progression Toward Outcome/Goals Progressing Discharge Planning - Improve/Maintain Start: 10/03/18 14:57 Freq: DAILY Status: Active Target: Protocol: Activity Type Activity Date Activity User E-Sign Co-Sign Detail Recorded Client Recorded Date Recorded By Document 10/09/18 02:52 [id number] 10/09/18 02:52 [id number] 10/09/18 02:52 PMRU Outcome: Discharge Planning Update Patient Family No Outcome/Goals Demonstrates Understanding of Discharge Plan Progression Toward Outcome/Goals Progressing Education-Improve/Maintain Start: 10/03/18 14:57 Freq: QSHIFT Status: Active Target: Protocol: Activity Type Activity Date Activity User E-Sign Co-Sign Detail Recorded Client Recorded Date Recorded By Document 10/09/18 07:44 [id number] [id number] 10/09/18 08:00 [id number] 10/09/18 07:44 PMRU Outcome: Education Outcome/Goals Demonstrates Skills Encourage Questions Other Outcome/Goals Lovenox education for self administration Progression Toward Outcome/Goals Progressing /GI-Improve/Maintain Start: 10/03/18 14:57 Freq: QSHIFT Status: Active Target: Protocol: Activity Type Activity Date Activity User E-Sign Co-Sign Detail Recorded Client Recorded Date Recorded By Document 10/09/18 07:44 [id number] [id number] 10/09/18 08:00 [id number] 10/09/18 07:44 PMRU Outcome: Genitourinary/ Gastrointestinal Genitourinary- Outcome/Goals Remain Free of Hospital- Acquired UTI Gastrointestinal-Outcome/Goals Maintain/ Achieve Bowel Regularity in Accordance with Pt's Baseline Prevent Constipation Laxatives as Ordered Progression Toward Outcome/Goals - Progressing Progression Toward Outcome/Goals - GI Progressing Outcome/Goals Met Comment pt up to BR Medication Administration Start: 10/03/18 14:57 Freq: QSHIFT Status: Active Target: Protocol: Activity Type Activity Date Activity User E-Sign Co-Sign Detail Recorded Client Recorded Date Recorded By Document 10/09/18 07:44 [id number] [id number] 10/09/18 08:00 [id number] 10/09/18 07:44 PMRU Outcome: Medication Administration Assess Patient Knowledge/Teach Med Yes Education for all Meds Outcome/Goals Patient Independent with Medication Administration at Home Demonstrates Understanding Demonstrates Lovenox Administration Progression Towards Outcome/Goals Progressing Outcome/Goals Met Demonstrates Lovenox Administration Is Patient Going Home on Lovenox? Yes If Patient is Going Home on Lovenox, Who pt Will Administer Neurological- Improve/Maintain Start: 10/03/18 14:57 Freq: QSHIFT Status: Active Target: Protocol: Activity Type Activity Date Activity User E-Sign Co-Sign Detail Recorded Client Recorded Date Recorded By Document 10/09/18 07:44 [id number] 10/09/18 08:00 [id number] 10/09/18 07:44 PMRU Outcome: Neurological Weakness/Aphasia Weakness Outcome/Goals Maintain/ Achieve Baseline Neurological Status Prevent Avoidable Neurological Decline Demonstrate Knowledge of Prevention/Tx of Neuro Disorders/ Complication Maintain/ Improve Strength/ROM Progression Toward Outcome/Goals Progressing Pain/Comfort- Improve/Maintain Start: 10/03/18 14:57 Freq: QSHIFT Status: Active Target: Protocol: Activity Type Activity Date Activity User E-Sign Co-Sign Detail Recorded Client Recorded Date Recorded By Document 10/09/18 07:44 [id number] 10/09/18 08:00 [id number] 10/09/18 07:44 PMRU Outcome: Pain/Comfort Outcome/Goals Demonstrates Knowledge and Use of Available Comfort Measures Achieves Acceptable Comfort/Pain Level as Determined by Patient/Condit Maintain Comfort Level Allowing Patient to Fully Participate in Rehab Progression Toward Outcome/Goals Progressing Safety- Improve/Maintain Start: 10/03/18 14:57 Freq: QSHIFT Status: Active Target: Protocol: Activity Type Activity Date Activity User E-Sign Co-Sign Detail Recorded Client Recorded Date Recorded By Document 10/09/18 07:44 [id number] 10/09/18 08:00 10/09/18 07:44 PMRU Outcome: Safety Outcome/Goals Remain Free of Injury or Harm Cooperates with Safety Measures for Least Restrictive Environment Prevent Falls/ Injury Progression Toward Outcome/Goals Progressing Skin- Improve/Maintain Start: 10/03/18 14:57 Freq: QSHIFT Status: Active Target: Protocol: Activity Type Activity Date Activity User E-Sign Co-Sign Detail Recorded Client Recorded Date Recorded By Document 10/09/18 07:44 [id number] 10/09/18 08:00 [id number] 10/09/18 07:44 PMRU Outcome: Skin Skin Risk Level Medium Skin Orders Dressing Change Turn/Position q2hr While in Bed Outcome/Goals Maintain/ Improve Skin Intergrity Surgical Incisions Healing Progression Toward Outcome/Goals Progressing Medicine Note: Length of Stay: 1 day Anticipated Discharge Destination: Home Tentative Discharge Date: 10/10/18 Discharged to: Home
--- NOTE | 2018-10-09 18:00 | PN ---
Progress Note Date of Service: 10/09/18 Note: ANIKA DAVIS was visited. Therapy notes read and reviewed. She was discussed in interdisciplinary team rounds. Has requested to talk to a psychiatrist. She normally sees Dr. Hollingsworth at [facility]. She did not divulge what it was about. She is doing well. On Lovenox for DVT prophylaxis. Current Medications: Active Medications Generic Name Dose Route Start Last Admin Trade Name Freq PRN Reason Stop Dose Admin Acetaminophen 650 mg 10/03/18 13:18 10/08/18 17:11 Tylenol Tab* PO 650 mg Q6H PRN Administration FEVER/PAIN Docusate Sodium 100 mg 10/03/18 21:00 10/09/18 07:38 Colace Cap* PO 100 mg BID MARÍA Administration Enoxaparin Sodium 40 mg 10/08/18 09:00 10/09/18 07:39 Lovenox(*) SUBCUT 40 mg Q24H MARÍA Administration Lactulose 30 ml 10/03/18 18:40 10/03/18 21:28 Lactulose* PO 30 ml Q6H PRN Administration CONSTIPATION Magnesium Hydroxide 30 ml 10/03/18 13:18 10/03/18 16:10 Milk Of Magnesia Liq* PO 30 ml Q6H PRN Administration CONSTIPATION Non Formulary Med* ( 300 mg 10/06/18 21:00 10/09/18 07:38 Lynparza 150mg PO 300 mg Tablet) 0900,2100 MARÍA Administration Oxycodone HCl 5 mg 10/03/18 13:32 10/09/18 07:39 Roxycodone Tab* PO 5 mg Q4H PRN Administration PAIN - MODERATE TO SEVERE Pharmacy Profile Note 1 note 10/03/18 17:00 10/08/18 17:08 Coumadin Daily Reminder* FOLLOW UP Not Given 1700 MARÍA Quetiapine Fumarate 300 mg 10/03/18 21:00 10/08/18 20:03 Seroquel Tab* PO 300 mg BEDTIME MARÍA Administration Senna 2 tab 10/03/18 13:18 Senokot Tab* PO BEDTIME PRN CONSTIPATION Vital Signs: Vital Signs Temp Pulse Resp BP Pulse Ox 98.7 F 99 20 107/61 95 10/09/18 06:37 10/09/18 06:37 10/09/18 09:30 10/09/18 06:37 10/09/18 06:37 Exam: GENERAL: Alert. Sometimes inappropriate LUNGS: Clear bilaterally HEART: Regular rhythm ABDOMEN: Soft, +BS EXTREMITIES: Wound on RLE C/D/I NEUROLOGIC: Alert. Sensation diminished in feet. Muscle strength 5/5 UEs and 3-3 +/5 RLE, 4+/5 LLE Assessment/Plan: 1. Right LORENE: WBAT. PT/OT 2. Ovarian Cancer, metastatic: Stable. Lynparza 3. DVT Prophylaxis: Lovenox 4. Advanced DIrectives: Full code 5. Delusional Disorder/Schizophrenia: Seroquel 6. Anemia: Stable 10/09/18 18:00
[2018-10-09] MEDS: QUEtiapine TAB* 300 MG PO SCH (19:57)
[2018-10-10 06:57] VITALS: BP 98/55
[2018-10-10] MEDS: Enoxaparin(*) 40 MG/0.4 ML SYR SUBCUT SCH (08:25)
[2018-10-10] MEDS: Docusate CAP* 100 MG PO SCH (08:25)
[2018-10-10] MEDS: LYNPARZA 150 MG PO SCH (08:26)
[2018-10-10] MEDS: oxyCODONE TAB* 5 MG TAB PO PRN (08:26)
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
--- NOTE | 2018-10-12 21:17 | DS ---
CC: Hamilton Ochoa NP DISCHARGE SUMMARY: DATE OF ADMISSION: 10/03/18 DATE OF DISCHARGE: 10/10/18 DISCHARGE DIAGNOSES: 1. Right total hip replacement. 2. Avascular necrosis, both hips. 3. Ovarian cancer, metastatic. 4. Brain metastases. 5. Schizotypal personality disorder. HISTORY OF ILLNESS AND HOSPITAL COURSE: For the complete history of the events leading up to her [facility] stay, please see the history and physical dictated by me on 10/03/18. While on the rehab unit, christ mcintosh patient remained fairly stable from medical point of view. She was put on Coumadin for DVT prophyl axis, but she had poor access in order to do blood draws. It was decided to change her to Lovenox. O therwise, she was medically stable. She did request to see the psychiatrist while on the rehab unit. Dr. Neely came by and met with the patient. No medication changes were done as a result of the vis it. The patient was otherwise stable. She was seen by both Physical Therapy and Occupational Therap y and made good gains with both disciplines. With physical therapy at the time of admission, the pat ient required contact guard to do a transfer, she could ambulate 100 feet with contact guard. With o ccupational therapy at the time of admission, the patient required supervision for upper body dressin g, mod assist for lower lobe dressing, min assist for bathing, contact guard for toileting, contact g uard for toilet transfers. By the time of discharge, the patient was independent with transfers, ind ependent ambulating 200 feet, independent going up and down 5 steps with 1 railing, independent with dressing, independent with bathing, independent with toileting. The patient was discharged to home on 10/10/18. DISCHARGE DIET: Regular. DISCHARGE MEDICATIONS: 1. Lovenox 40 mg subcutaneously every 24 hours starting 10/11/18 and going for 15 days. 2. Lynparza 300 mg twice a day. 3. Oxycodone 5 mg every 4 hours as needed, not to exceed 4 per day. 4. Seroquel 300 mg at bedtime. SERVICES AFTER DISCHARGE: Through visiting nurse service, she will have home physical therapy and [facility] retirement. Follow up with Dr. Flash Larkin in 1 week or less. She will also follow up wi christ Ochoa, her primary care doctor and Dr. Lechuga, her oncologist. [id number]/[facility] #: [id number]
== END 2018-10-10 13:10 | disposition home health service (06) | DRG 560 ==
LOC: PMRU 09:39
PROVIDERS: ADMIT Physical Medicine & Rehabilitation; ATTEND Physical Medicine & Rehabilitation
PROC: F07Z5ZZ Bed Mobility Treatment (ICD-10-PCS; principal; 2018-10-03)
PROC: F07Z9ZZ Gait Training/Functional Ambulation Treatment (ICD-10-PCS; 2018-10-03)
PROC: F07Z8ZZ Transfer Training Treatment (ICD-10-PCS; 2018-10-03)
PROC: F08Z0ZZ Bathing/Showering Techniques Treatment (ICD-10-PCS; 2018-10-03)
PROC: F08Z1ZZ Dressing Techniques Treatment (ICD-10-PCS; 2018-10-03)
PROC: F08Z3ZZ Feeding/Eating Treatment (ICD-10-PCS; 2018-10-03)
DX: Z47.1 Aftercare following joint replacement surgery (principal); C56.9 Malignant neoplasm of unspecified ovary; Z96.641 Presence of right artificial hip joint; F32.9 Major depressive disorder, single episode, unspecified; J45.909 Unspecified asthma, uncomplicated; F60.1 Schizoid personality disorder; F22 Delusional disorders; D64.9 Anemia, unspecified; Z79.899 Other long term (current) drug therapy; Z85.841 Personal history of malignant neoplasm of brain; Z79.891 Long term (current) use of opiate analgesic; Z91.040 Latex allergy status; Z91.048 Other nonmedicinal substance allergy status
CPT/HCPCS: 36415; 80053; 81003; 85025; 85610; A9270-GY; J1644; J1650; J1885

== ENCOUNTER 2020-02-03 07:57 | Inpatient (IN) ==
[~2020-02-03 07:57] MED LIST changes: -Buffered Lidocaine 1% SYRIN* 1 ML/SYRINGE INTRADERM ONE; -Lactated Ringers 1000 ML Bag* 1,000 ML IV SCH; +Sodium Bicarb 8.4% Vial 50 ML 150 MEQ in D5W 1000 ml BAG 850 ML IVPB SCH
[2020-02-03 08:33] LABS: ABS Eosinophils 0.1 10^3/ul (0-0.6); ABS Lymphocytes 1.8 10^3/ul (1.0-4.8); ABS Monocytes 0.7 10^3/ul (0-0.8); Eosinophil % 1.3 %; Hematocrit 36 % (35-47); Hemoglobin 11.9 g/dL (12.0-16.0); Lymphocyte % 37.5 %; Mean Corpuscular HGB Conc 33 g/dL (31-36); Mean Corpuscular Hemoglobin 32 pg (27-31); Mean Corpuscular Volume 97 fL (80-97); Mean Platelet Volume 8.2 fL (7.4-10.4); Nucleated Red Blood Cells % 0.1; Platelet Count 273 10^3/uL (150-450); Red Blood Count 3.72 10^6 /uL (3.70-4.87); Red Cell Distribution Width 20 % (10-15); White Blood Count 4.7 10^3/uL (3.5-10.8)
[2020-02-03 08:53] LABS: Albumin 3.3 g/dL (3.2-5.2); Albumin/Globulin Ratio 1.1 (1-3); BUN/Creatinine Ratio 13.2 (8-20); Calcium 9.4 mg/dL (8.6-10.3); EGFR African American 101.5 (>60); EGFR Non-African American 83.9 (>60); Potassium 3.9 mmol/L (3.5-5.0); Total Bilirubin 0.3 mg/dL (0.2-1.0); Total Protein 6.3 g/dL (6.4-8.9)
[2020-02-03 09:55] LABS: Urine Appearance Cloudy; Urine Bilirubin Negative (Negative); Urine Blood Negative (Negative); Urine Color Amber; Urine Glucose Negative (Negative); Urine Ketones Negative (Negative); Urine Nitrite Negative (Negative); Urine Protein Negative (Negative); Urine Specific Gravity 1.017 (1.010-1.030); Urine Urobilinogen Negative (Negative)
[2020-02-03] MEDS ORDERED: Morphine 2 MG/ML SYRINGE IV PRN (13:29)
[2020-02-03] MEDS ORDERED: LORazepam 1 mg TAB (*) PO PRN (13:55)
[2020-02-03] MEDS ORDERED: PALONOSETRON HCL* 0.05 MG/ML (0.25 MG) SYRINGE (0.05 MG/ML) ONE (13:55)
[2020-02-03] MEDS ORDERED: Dexamethasone IV 4 MG/ML VIAL 1 ml VIAL ONE (13:55)
[2020-02-03] MEDS: Heparin 5000 UNITS/ML VIAL(*) 1 ml vial SUBCUT SCH ×2 (16:02→21:14)
[2020-02-03] MEDS ORDERED: NS 0.9% IVPB ONE ×3 (16:30→17:00)
[2020-02-03] MEDS ORDERED: METHOTREXATE IVPB ONE ×3 (16:30→17:00)
[2020-02-03] MEDS: Sodium Bicarb 8.4% Vial 50 ML 150 MEQ in D5W 1000 ml BAG 850 ML IV SCH (21:34)
[2020-02-04] MEDS: Sodium Bicarb 8.4% Vial 50 ML 150 MEQ in D5W 1000 ml BAG 850 ML IV SCH ×4 (04:44→16:10)
[2020-02-04 05:52] LABS: ABS Lymphocytes 0.9 10^3/ul (1.0-4.8); ABS Monocytes 1.1 10^3/ul (0-0.8); Hematocrit 31 % (35-47); Hemoglobin 10.8 g/dL (12.0-16.0); Lymphocyte % 8.8 %; Mean Corpuscular HGB Conc 35 g/dL (31-36); Mean Corpuscular Hemoglobin 33 pg (27-31); Mean Corpuscular Volume 94 fL (80-97); Mean Platelet Volume 8.9 fL (7.4-10.4); Platelet Count 233 10^3/uL (150-450); Red Blood Count 3.26 10^6 /uL (3.70-4.87); Red Cell Distribution Width 19 % (10-15); White Blood Count 10.7 10^3/uL (3.5-10.8)
[2020-02-04 06:49] LABS: Urine Appearance Clear; Urine Bilirubin Negative (Negative); Urine Blood Negative (Negative); Urine Color Amber; Urine Glucose Negative (Negative); Urine Ketones Negative (Negative); Urine Nitrite Negative (Negative); Urine Protein 2+(100 mg/dL) (Negative); Urine Specific Gravity 1.019 (1.010-1.030); Urine Urobilinogen Negative (Negative)
[2020-02-04 07:03] LABS: Albumin 2.9 g/dL (3.2-5.2); Albumin/Globulin Ratio 1.2 (1-3); BUN/Creatinine Ratio 21.6 (8-20); Calcium 8.4 mg/dL (8.6-10.3); EGFR African American 104.7 (>60); EGFR Non-African American 86.5 (>60); Globulin 2.5 g/dL (2-4); Potassium 3.5 mmol/L (3.5-5.0); Total Bilirubin 1.1 mg/dL (0.2-1.0); Total Protein 5.4 g/dL (6.4-8.9)
[2020-02-04 07:13] LABS: Urine Bacteria 1+ (Absent); Urine Red Blood Cell Trace(0-2/hpf) (Absent); Urine Squamous Epithelial Cell Present (Absent); Urine White Blood Cell Trace(0-5/hpf) (Absent)
[2020-02-04] MEDS: Heparin 5000 UNITS/ML VIAL(*) 1 ml vial SUBCUT SCH ×3 (07:34→23:23)
[2020-02-04] MEDS ORDERED: Sodium Bicarb 8.4% Vial 50 ML 150 MEQ in D5W 1000 ml BAG 850 ML IV SCH (08:52)
[2020-02-04] MEDS: Leucovorin Calcium 25 MG in NS 0.9% 50 ML 50 ML IVPB SCH (17:27)
[2020-02-05] MEDS: Sodium Bicarb 8.4% Vial 50 ML 150 MEQ in D5W 1000 ml BAG 850 ML IV SCH ×5 (00:22→18:15)
[2020-02-05] MEDS: Leucovorin Calcium 25 MG in NS 0.9% 50 ML 50 ML IVPB SCH ×5 (00:39→23:57)
[2020-02-05] MEDS: Heparin 5000 UNITS/ML VIAL(*) 1 ml vial SUBCUT SCH ×3 (05:28→22:18)
[2020-02-05 05:56] LABS: ABS Basophils 0.1 10^3/ul (0-0.2); ABS Lymphocytes 3.1 10^3/ul (1.0-4.8); ABS Monocytes 0.3 10^3/ul (0-0.8); Eosinophil % 0.5 %; Hematocrit 30 % (35-47); Hemoglobin 10.3 g/dL (12.0-16.0); Lymphocyte % 55.3 %; Mean Corpuscular HGB Conc 34 g/dL (31-36); Mean Corpuscular Hemoglobin 33 pg (27-31); Mean Corpuscular Volume 96 fL (80-97); Mean Platelet Volume 8.9 fL (7.4-10.4); Nucleated Red Blood Cells % 0.1; Platelet Count 181 10^3/uL (150-450); Red Blood Count 3.14 10^6 /uL (3.70-4.87); Red Cell Distribution Width 19 % (10-15); White Blood Count 5.6 10^3/uL (3.5-10.8)
[2020-02-05 06:13] LABS: Albumin 2.5 g/dL (3.2-5.2); Albumin/Globulin Ratio 1.1 (1-3); BUN/Creatinine Ratio 12.3 (8-20); Calcium 8.2 mg/dL (8.6-10.3); EGFR African American 121.5 (>60); EGFR Non-African American 100.4 (>60); Globulin 2.3 g/dL (2-4); Potassium 3.2 mmol/L (3.5-5.0); Total Bilirubin 0.3 mg/dL (0.2-1.0); Total Protein 4.8 g/dL (6.4-8.9)
[2020-02-05 07:20] LABS: Urine Appearance Cloudy; Urine Bilirubin Negative (Negative); Urine Blood Negative (Negative); Urine Color Straw; Urine Glucose Negative (Negative); Urine Ketones Negative (Negative); Urine Nitrite Negative (Negative); Urine Protein Negative (Negative); Urine Specific Gravity 1.004 (1.010-1.030); Urine Urobilinogen Negative (Negative)
[2020-02-06] MEDS: Sodium Bicarb 8.4% Vial 50 ML 150 MEQ in D5W 1000 ml BAG 850 ML IV SCH ×5 (02:06→19:59)
[2020-02-06] MEDS: Leucovorin Calcium 25 MG in NS 0.9% 50 ML 50 ML IVPB SCH ×4 (05:43→23:09)
[2020-02-06] MEDS: Heparin 5000 UNITS/ML VIAL(*) 1 ml vial SUBCUT SCH ×3 (05:44→23:09)
[2020-02-06 06:33] LABS: Urine Appearance Clear; Urine Bilirubin Negative (Negative); Urine Blood Negative (Negative); Urine Color Straw; Urine Glucose Negative (Negative); Urine Ketones Negative (Negative); Urine Nitrite Negative (Negative); Urine Protein Negative (Negative); Urine Specific Gravity 1.004 (1.010-1.030); Urine Urobilinogen Negative (Negative)
[2020-02-06 06:49] LABS: ABS Eosinophils 0.1 10^3/ul (0-0.6); ABS Lymphocytes 2.2 10^3/ul (1.0-4.8); ABS Monocytes 0.1 10^3/ul (0-0.8); Eosinophil % 1.7 %; Hematocrit 32 % (35-47); Hemoglobin 11.1 g/dL (12.0-16.0); Lymphocyte % 53.5 %; Mean Corpuscular HGB Conc 34 g/dL (31-36); Mean Corpuscular Hemoglobin 33 pg (27-31); Mean Corpuscular Volume 96 fL (80-97); Mean Platelet Volume 9.8 fL (7.4-10.4); Platelet Count 168 10^3/uL (150-450); Red Blood Count 3.37 10^6 /uL (3.70-4.87); Red Cell Distribution Width 19 % (10-15); White Blood Count 4.1 10^3/uL (3.5-10.8)
[2020-02-06 07:06] LABS: Albumin 2.8 g/dL (3.2-5.2); Albumin/Globulin Ratio 1.1 (1-3); BUN/Creatinine Ratio 12.7 (8-20); Calcium 8.5 mg/dL (8.6-10.3); EGFR African American 109.8 (>60); EGFR Non-African American 90.7 (>60); Globulin 2.5 g/dL (2-4); Potassium 3.5 mmol/L (3.5-5.0); Total Bilirubin 0.3 mg/dL (0.2-1.0); Total Protein 5.3 g/dL (6.4-8.9)
[2020-02-06 20:08] LABS: Urine Appearance Clear; Urine Bilirubin Negative (Negative); Urine Blood Negative (Negative); Urine Color Colorless; Urine Glucose Negative (Negative); Urine Ketones Negative (Negative); Urine Nitrite Negative (Negative); Urine Protein Negative (Negative); Urine Specific Gravity 1.004 (1.010-1.030); Urine Urobilinogen Negative (Negative)
[2020-02-07] MEDS: Sodium Bicarb 8.4% Vial 50 ML 150 MEQ in D5W 1000 ml BAG 850 ML IV SCH ×2 (03:55→11:40)
[2020-02-07] MEDS: Leucovorin Calcium 25 MG in NS 0.9% 50 ML 50 ML IVPB SCH (05:53)
[2020-02-07] MEDS: Heparin 5000 UNITS/ML VIAL(*) 1 ml vial SUBCUT SCH (05:53)
[2020-02-07 09:48] VITALS: BP 132/86
== END 2020-02-07 11:00 | disposition home or self-care (01) | DRG 598 ==
LOC: CHOA 07:57 → MED 13:29
PROVIDERS: ADMIT Internal Medicine Hematology & Oncology; ATTEND Internal Medicine Hematology & Oncology

== ENCOUNTER 2020-02-17 07:07 | Inpatient (IN) ==
[2020-02-17 08:40] LABS: ABS Eosinophils 0.2 10^3/ul (0-0.6); ABS Lymphocytes 1.5 10^3/ul (1.0-4.8); ABS Monocytes 0.4 10^3/ul (0-0.8); Eosinophil % 3.4 %; Hematocrit 32 % (35-47); Lymphocyte % 32.8 %; Mean Corpuscular HGB Conc 34 g/dL (31-36); Mean Corpuscular Hemoglobin 32 pg (27-31); Mean Corpuscular Volume 95 fL (80-97); Mean Platelet Volume 8.9 fL (7.4-10.4); Nucleated Red Blood Cells % 0.1; Platelet Count 299 10^3/uL (150-450); Red Blood Count 3.41 10^6 /uL (3.70-4.87); Red Cell Distribution Width 18 % (10-15); White Blood Count 4.5 10^3/uL (3.5-10.8)
[2020-02-17 08:48] LABS: Albumin 3.1 g/dL (3.2-5.2); Albumin/Globulin Ratio 1.1 (1-3); Calcium 8.8 mg/dL (8.6-10.3); EGFR African American 121.5 (>60); EGFR Non-African American 100.4 (>60); Globulin 2.8 g/dL (2-4); Potassium 4.2 mmol/L (3.5-5.0); Total Bilirubin 0.3 mg/dL (0.2-1.0); Total Protein 5.9 g/dL (6.4-8.9)
[2020-02-17 09:11] LABS: Urine Appearance Cloudy; Urine Bilirubin Negative (Negative); Urine Blood Negative (Negative); Urine Color Yellow; Urine Glucose Negative (Negative); Urine Ketones Negative (Negative); Urine Nitrite Negative (Negative); Urine Protein Negative (Negative); Urine Urobilinogen Negative (Negative)
[2020-02-17] MEDS ORDERED: LORazepam 2 mg VIAL 1 ml IV PUSH PRN (09:19)
[2020-02-17] MEDS ORDERED: Lorazepam PYXIS KEY PRN (09:19)
[2020-02-17] MEDS ORDERED: Morphine 2 MG/ML SYRINGE IV PRN (09:21)
[2020-02-17] MEDS ORDERED: Sodium Bicarb 8.4% Vial 50 ML 150 MEQ in D5W 1000 ml BAG 850 ML IV SCH (13:00)
[2020-02-17 13:37] LABS: Urine Appearance Turbid; Urine Bilirubin Negative (Negative); Urine Blood Negative (Negative); Urine Color Amber; Urine Glucose Negative (Negative); Urine Ketones Negative (Negative); Urine Nitrite Negative (Negative); Urine Protein Negative (Negative); Urine Specific Gravity 1.015 (1.010-1.030); Urine Urobilinogen Negative (Negative)
[2020-02-17] MEDS ORDERED: Dexamethasone IV 4 MG/ML VIAL 1 ml VIAL IV SLOW PU ONE (14:00)
[2020-02-17] MEDS ORDERED: Palonosetron 0.25 MG in Premix IV 0 ML IVPB ONE (14:15)
[2020-02-17] MEDS: LOTEPREDNOL 0.5% BOTH EYES SCH ×3 (15:00→21:48)
[2020-02-17] MEDS ORDERED: NS 0.9% IVPB ONE (15:00)
[2020-02-17] MEDS ORDERED: METHOTREXATE IVPB ONE (15:00)
[2020-02-17] MEDS: Sodium Bicarb 8.4% Vial 50 ML 150 MEQ in D5W 1000 ml BAG 850 ML IV SCH (19:41)
[2020-02-18] MEDS: Sodium Bicarb 8.4% Vial 50 ML 150 MEQ in D5W 1000 ml BAG 850 ML IV SCH ×6 (00:59→18:16)
[2020-02-18 07:24] LABS: ABS Lymphocytes 0.8 10^3/ul (1.0-4.8); ABS Monocytes 0.6 10^3/ul (0-0.8); Eosinophil % 0.1 %; Hematocrit 33 % (35-47); Hemoglobin 11.2 g/dL (12.0-16.0); Lymphocyte % 13.5 %; Mean Corpuscular HGB Conc 34 g/dL (31-36); Mean Corpuscular Hemoglobin 32 pg (27-31); Mean Corpuscular Volume 95 fL (80-97); Mean Platelet Volume 9.4 fL (7.4-10.4); Nucleated Red Blood Cells % 0.1; Platelet Count 258 10^3/uL (150-450); Red Blood Count 3.46 10^6 /uL (3.70-4.87); Red Cell Distribution Width 18 % (10-15); White Blood Count 6.2 10^3/uL (3.5-10.8)
[2020-02-18 07:40] LABS: Albumin 2.9 g/dL (3.2-5.2); Calcium 8.3 mg/dL (8.6-10.3); Potassium 3.9 mmol/L (3.5-5.0)
[2020-02-18 07:45] LABS: Albumin/Globulin Ratio 1.3 (1-3); BUN/Creatinine Ratio 20.9 (8-20); EGFR African American 117.4 (>60); Globulin 2.2 g/dL (2-4); Total Protein 5.1 g/dL (6.4-8.9)
[2020-02-18 09:32] LABS: Urine Appearance Clear; Urine Bilirubin Negative (Negative); Urine Blood Negative (Negative); Urine Color Yellow; Urine Glucose Negative (Negative); Urine Ketones Negative (Negative); Urine Nitrite Negative (Negative); Urine Protein Negative (Negative); Urine Specific Gravity 1.005 (1.010-1.030); Urine Urobilinogen Negative (Negative)
[2020-02-18] MEDS: Loteprednol 0.5% OPH.SUSP(NF) 5 ML BTL BOTH EYES SCH ×4 (11:43→22:06)
[2020-02-18] MEDS: Dextran 70/Hypromellose Tears Eye Drops 15 ml BTL (for Artificials Tears) BOTH EYES PRN ×2 (15:40→22:06)
[2020-02-18] MEDS: Leucovorin Calcium 25 MG in NS 0.9% 50 ML 50 ML IVPB SCH ×2 (16:22→22:05)
[2020-02-19] MEDS: Sodium Bicarb 8.4% Vial 50 ML 150 MEQ in D5W 1000 ml BAG 850 ML IV SCH ×5 (02:53→23:02)
[2020-02-19] MEDS: Leucovorin Calcium 25 MG in NS 0.9% 50 ML 50 ML IVPB SCH ×4 (04:02→22:37)
[2020-02-19 04:33] LABS: Urine Appearance Cloudy; Urine Bilirubin Negative (Negative); Urine Blood Negative (Negative); Urine Color Yellow; Urine Glucose Negative (Negative); Urine Ketones Negative (Negative); Urine Nitrite Negative (Negative); Urine Protein Negative (Negative); Urine Specific Gravity 1.005 (1.010-1.030); Urine Urobilinogen Negative (Negative)
[2020-02-19 06:02] LABS: ABS Eosinophils 0.1 10^3/ul (0-0.6); ABS Lymphocytes 2.3 10^3/ul (1.0-4.8); ABS Monocytes 0.2 10^3/ul (0-0.8); Eosinophil % 1.6 %; Hematocrit 31 % (35-47); Hemoglobin 10.4 g/dL (12.0-16.0); Lymphocyte % 51.2 %; Mean Corpuscular HGB Conc 34 g/dL (31-36); Mean Corpuscular Hemoglobin 32 pg (27-31); Mean Corpuscular Volume 95 fL (80-97); Mean Platelet Volume 8.5 fL (7.4-10.4); Nucleated Red Blood Cells % 0.1; Platelet Count 287 10^3/uL (150-450); Red Blood Count 3.25 10^6 /uL (3.70-4.87); Red Cell Distribution Width 18 % (10-15); White Blood Count 4.5 10^3/uL (3.5-10.8)
[2020-02-19 06:20] LABS: Albumin 2.7 g/dL (3.2-5.2); Albumin/Globulin Ratio 1.2 (1-3); BUN/Creatinine Ratio 13.7 (8-20); Calcium 7.9 mg/dL (8.6-10.3); EGFR African American 106.3 (>60); EGFR Non-African American 87.9 (>60); Globulin 2.3 g/dL (2-4); Potassium 3.6 mmol/L (3.5-5.0); Total Bilirubin 0.4 mg/dL (0.2-1.0)
[2020-02-19] MEDS: Loteprednol 0.5% OPH.SUSP(NF) 5 ML BTL BOTH EYES SCH ×4 (09:39→19:42)
[2020-02-19] MEDS: Dextran 70/Hypromellose Tears Eye Drops 15 ml BTL (for Artificials Tears) BOTH EYES PRN ×3 (10:25→17:56)
[2020-02-20] MEDS: Leucovorin Calcium 25 MG in NS 0.9% 50 ML 50 ML IVPB SCH ×4 (03:35→20:59)
[2020-02-20 06:49] LABS: ABS Eosinophils 0.1 10^3/ul (0-0.6); ABS Lymphocytes 1.5 10^3/ul (1.0-4.8); ABS Monocytes 0.1 10^3/ul (0-0.8); Eosinophil % 3.6 %; Hematocrit 29 % (35-47); Hemoglobin 10.2 g/dL (12.0-16.0); Lymphocyte % 49.3 %; Mean Corpuscular HGB Conc 35 g/dL (31-36); Mean Corpuscular Hemoglobin 33 pg (27-31); Mean Corpuscular Volume 95 fL (80-97); Mean Platelet Volume 8.4 fL (7.4-10.4); Platelet Count 260 10^3/uL (150-450); Red Blood Count 3.08 10^6 /uL (3.70-4.87); Red Cell Distribution Width 18 % (10-15); White Blood Count 3.1 10^3/uL (3.5-10.8)
[2020-02-20 06:59] LABS: Albumin 2.5 g/dL (3.2-5.2); BUN/Creatinine Ratio 10.3 (8-20); Calcium 7.8 mg/dL (8.6-10.3); EGFR African American 115.4 (>60); EGFR Non-African American 95.4 (>60); Globulin 2.4 g/dL (2-4); Potassium 3.5 mmol/L (3.5-5.0); Total Bilirubin 0.4 mg/dL (0.2-1.0); Total Protein 4.9 g/dL (6.4-8.9)
[2020-02-20] MEDS: Sodium Bicarb 8.4% Vial 50 ML 150 MEQ in D5W 1000 ml BAG 850 ML IV SCH ×3 (08:54→19:06)
[2020-02-20] MEDS: Loteprednol 0.5% OPH.SUSP(NF) 5 ML BTL BOTH EYES SCH ×4 (09:10→19:56)
[2020-02-20 10:18] LABS: Urine Appearance Clear; Urine Bilirubin Negative (Negative); Urine Blood Negative (Negative); Urine Color Straw; Urine Glucose Negative (Negative); Urine Ketones Negative (Negative); Urine Nitrite Negative (Negative); Urine Protein Negative (Negative); Urine Specific Gravity 1.008 (1.010-1.030); Urine Urobilinogen Negative (Negative)
[2020-02-20] MEDS ORDERED: Sodium Bicarb 8.4% Vial 50 ML 150 MEQ in D5W 1000 ml BAG 850 ML IV SCH (11:00)
[2020-02-21] MEDS: Leucovorin Calcium 25 MG in NS 0.9% 50 ML 50 ML IVPB SCH ×2 (02:39→09:03)
[2020-02-21] MEDS: Sodium Bicarb 8.4% Vial 50 ML 150 MEQ in D5W 1000 ml BAG 850 ML IV SCH ×4 (02:39→07:55)
[2020-02-21] MEDS: Loteprednol 0.5% OPH.SUSP(NF) 5 ML BTL BOTH EYES SCH ×2 (07:14→12:36)
[2020-02-21 09:01] VITALS: BP 121/82
== END 2020-02-21 13:48 | disposition home or self-care (01) | DRG 949 ==
LOC: CHOA 07:07 → MEDTELE 09:03
PROVIDERS: ADMIT Nurse Practitioner Family; ATTEND Internal Medicine Hematology & Oncology

== ENCOUNTER 2020-03-16 08:06 | Inpatient (IN) ==
[~2020-03-16 08:06] MED LIST changes: +Dexamethasone IV 8 MG in Premix IV 0 ML IV SCH; -Sodium Bicarb 8.4% Vial 50 ML 150 MEQ in D5W 1000 ml BAG 850 ML IVPB SCH
[2020-03-16 08:30] LABS: ABS Basophils 0.1 10^3/ul (0-0.2); ABS Eosinophils 0.1 10^3/ul (0-0.6); ABS Lymphocytes 1.6 10^3/ul (1.0-4.8); ABS Monocytes 0.4 10^3/ul (0-0.8); ABS Neutrophils 3.1 10^3/ul (1.5-7.7); Eosinophil % 1.8 %; Hematocrit 33 % (35-47); Hemoglobin 11.1 g/dL (12.0-16.0); Lymphocyte % 30.9 %; Mean Corpuscular HGB Conc 33 g/dL (31-36); Mean Corpuscular Hemoglobin 31 pg (27-31); Mean Corpuscular Volume 94 fL (80-97); Nucleated Red Blood Cells % 0.1; Platelet Count 301 10^3/uL (150-450); Red Blood Count 3.54 10^6 /uL (3.70-4.87); Red Cell Distribution Width 17 % (10-15); White Blood Count 5.3 10^3/uL (3.5-10.8)
[2020-03-16 08:53] LABS: Albumin 3.3 g/dL (3.2-5.2); Albumin/Globulin Ratio 1.1 (1-3); BUN/Creatinine Ratio 10.9 (8-20); Calcium 9.1 mg/dL (8.6-10.3); EGFR African American 81.4 (>60); EGFR Non-African American 67.3 (>60); Globulin 2.9 g/dL (2-4); Potassium 3.8 mmol/L (3.5-5.0); Total Bilirubin 0.3 mg/dL (0.2-1.0); Total Protein 6.2 g/dL (6.4-8.9)
[2020-03-16] MEDS ORDERED: Sodium Bicarb 8.4% Vial 50 ML 150 MEQ in D5W 1000 ml BAG 850 ML IV ONE (09:00)
[2020-03-16] MEDS ORDERED: LORazepam 2 mg VIAL 1 ml IV PUSH PRN (09:06)
[2020-03-16] MEDS ORDERED: Lorazepam PYXIS KEY PRN (09:06)
[2020-03-16 10:52] LABS: Urine Appearance Cloudy; Urine Bilirubin Negative (Negative); Urine Blood Negative (Negative); Urine Color Amber; Urine Glucose Negative (Negative); Urine Ketones Negative (Negative); Urine Nitrite Negative (Negative); Urine Protein Negative (Negative); Urine Specific Gravity 1.025 (1.010-1.030); Urine Urobilinogen Negative (Negative)
[2020-03-16] MEDS ORDERED: PALONOSETRON HCL 0.05 MG/ML (0.25 MG) SYRINGE (0.05 MG/ML) ONE (11:08)
[2020-03-16] MEDS ORDERED: Sodium Bicarb 8.4% Vial 50 ML 150 MEQ in D5W 1000 ml BAG 850 ML IV SCH ×2 (13:00→17:00)
[2020-03-16] MEDS ORDERED: NS 0.9% IVPB ONE ×2 (16:00)
[2020-03-16] MEDS ORDERED: METHOTREXATE IVPB ONE ×2 (16:00)
[2020-03-16] MEDS: Enoxaparin 40 MG/0.4 ML SYR SUBCUT SCH (18:30)
[2020-03-17 05:48] LABS: ABS Lymphocytes 0.9 10^3/ul (1.0-4.8); ABS Monocytes 0.6 10^3/ul (0-0.8); ABS Neutrophils 11.9 10^3/ul (1.5-7.7); Hematocrit 31 % (35-47); Hemoglobin 10.6 g/dL (12.0-16.0); Lymphocyte % 6.4 %; Mean Corpuscular HGB Conc 34 g/dL (31-36); Mean Corpuscular Hemoglobin 31 pg (27-31); Mean Corpuscular Volume 93 fL (80-97); Mean Platelet Volume 8.4 fL (7.4-10.4); Platelet Count 267 10^3/uL (150-450); Red Blood Count 3.39 10^6 /uL (3.70-4.87); Red Cell Distribution Width 16 % (10-15); White Blood Count 13.4 10^3/uL (3.5-10.8)
[2020-03-17 06:01] LABS: Albumin/Globulin Ratio 1.1 (1-3); BUN/Creatinine Ratio 16.4 (8-20); Calcium 8.8 mg/dL (8.6-10.3); EGFR African American 117.4 (>60); Globulin 2.7 g/dL (2-4); Potassium 3.5 mmol/L (3.5-5.0); Total Bilirubin 0.9 mg/dL (0.2-1.0); Total Protein 5.7 g/dL (6.4-8.9)
[2020-03-17] MEDS: Enoxaparin 40 MG/0.4 ML SYR SUBCUT SCH (13:27)
[2020-03-17] MEDS: Leucovorin Calcium 25 MG in NS 0.9% 50 ML 50 ML IVPB SCH ×2 (16:55→22:16)
[2020-03-17] MEDS ORDERED: Sodium Bicarb 8.4% Vial 50 ML 150 MEQ in D5W 1000 ml BAG 850 ML IV SCH (17:00)
[2020-03-18] MEDS: Sodium Bicarb 8.4% Vial 50 ML 150 MEQ in D5W 1000 ml BAG 850 ML IV SCH ×5 (00:29→19:41)
[2020-03-18] MEDS: Leucovorin Calcium 25 MG in NS 0.9% 50 ML 50 ML IVPB SCH ×4 (04:36→22:06)
[2020-03-18 05:02] LABS: ABS Basophils 0.1 10^3/ul (0-0.2); ABS Eosinophils 0.1 10^3/ul (0-0.6); ABS Lymphocytes 2.6 10^3/ul (1.0-4.8); ABS Monocytes 0.3 10^3/ul (0-0.8); ABS Neutrophils 3.9 10^3/ul (1.5-7.7); Eosinophil % 0.8 %; Hematocrit 29 % (35-47); Hemoglobin 9.9 g/dL (12.0-16.0); Lymphocyte % 37.9 %; Mean Corpuscular HGB Conc 34 g/dL (31-36); Mean Corpuscular Hemoglobin 32 pg (27-31); Mean Corpuscular Volume 93 fL (80-97); Mean Platelet Volume 8.3 fL (7.4-10.4); Platelet Count 245 10^3/uL (150-450); Red Blood Count 3.09 10^6 /uL (3.70-4.87); Red Cell Distribution Width 17 % (10-15)
[2020-03-18 05:19] LABS: Albumin 2.7 g/dL (3.2-5.2); Albumin/Globulin Ratio 1.2 (1-3); BUN/Creatinine Ratio 17.6 (8-20); Calcium 8.6 mg/dL (8.6-10.3); EGFR African American 115.4 (>60); EGFR Non-African American 95.4 (>60); Globulin 2.3 g/dL (2-4); Potassium 3.4 mmol/L (3.5-5.0); Total Bilirubin 0.3 mg/dL (0.2-1.0)
[2020-03-18 11:58] LABS: ABS Eosinophils 0.1 10^3/ul (0-0.6); ABS Lymphocytes 2.3 10^3/ul (1.0-4.8); ABS Monocytes 0.2 10^3/ul (0-0.8); Eosinophil % 1.4 %; Hematocrit 30 % (35-47); Lymphocyte % 40.9 %; Mean Corpuscular HGB Conc 34 g/dL (31-36); Mean Corpuscular Hemoglobin 32 pg (27-31); Mean Corpuscular Volume 94 fL (80-97); Mean Platelet Volume 8.5 fL (7.4-10.4); Platelet Count 238 10^3/uL (150-450); Red Blood Count 3.16 10^6 /uL (3.70-4.87); Red Cell Distribution Width 17 % (10-15); White Blood Count 5.7 10^3/uL (3.5-10.8)
[2020-03-18] MEDS ORDERED: Sodium Bicarb 8.4% Vial 50 ML 150 MEQ in D5W 1000 ml BAG 850 ML IV SCH (12:00)
[2020-03-18] MEDS: Enoxaparin 40 MG/0.4 ML SYR SUBCUT SCH (12:54)
[2020-03-18] MEDS: Potassium Chlor 20 meq TAB.ER PO SCH (12:54)
[2020-03-18] MEDS: Senna TAB 8.6 mg TAB PO PRN (20:56)
[2020-03-19] MEDS: Leucovorin Calcium 25 MG in NS 0.9% 50 ML 50 ML IVPB SCH ×4 (04:01→22:53)
[2020-03-19] MEDS: Sodium Bicarb 8.4% Vial 50 ML 150 MEQ in D5W 1000 ml BAG 850 ML IV SCH ×4 (04:32→20:38)
[2020-03-19 06:04] LABS: ABS Eosinophils 0.1 10^3/ul (0-0.6); ABS Lymphocytes 1.7 10^3/ul (1.0-4.8); ABS Monocytes 0.1 10^3/ul (0-0.8); ABS Neutrophils 2.2 10^3/ul (1.5-7.7); Eosinophil % 2.7 %; Hematocrit 29 % (35-47); Lymphocyte % 41.7 %; Mean Corpuscular HGB Conc 34 g/dL (31-36); Mean Corpuscular Hemoglobin 32 pg (27-31); Mean Corpuscular Volume 94 fL (80-97); Mean Platelet Volume 7.9 fL (7.4-10.4); Platelet Count 235 10^3/uL (150-450); Red Blood Count 3.13 10^6 /uL (3.70-4.87); Red Cell Distribution Width 17 % (10-15); White Blood Count 4.2 10^3/uL (3.5-10.8)
[2020-03-19 06:25] LABS: BUN/Creatinine Ratio 11.9 (8-20); Potassium 3.8 mmol/L (3.5-5.0)
[2020-03-19 06:26] LABS: Albumin 2.6 g/dL (3.2-5.2); Albumin/Globulin Ratio 1.1 (1-3); Calcium 8.3 mg/dL (8.6-10.3); EGFR African American 117.4 (>60); Globulin 2.3 g/dL (2-4); Total Bilirubin 0.3 mg/dL (0.2-1.0); Total Protein 4.9 g/dL (6.4-8.9)
[2020-03-19] MEDS: Potassium Chlor 20 meq TAB.ER PO SCH (08:45)
[2020-03-19] MEDS: Senna TAB 8.6 mg TAB PO PRN (12:06)
[2020-03-19] MEDS: Enoxaparin 40 MG/0.4 ML SYR SUBCUT SCH (17:26)
[2020-03-20] MEDS: Sodium Bicarb 8.4% Vial 50 ML 150 MEQ in D5W 1000 ml BAG 850 ML IV SCH ×3 (04:04→11:54)
[2020-03-20] MEDS: Leucovorin Calcium 25 MG in NS 0.9% 50 ML 50 ML IVPB SCH ×2 (04:05→10:57)
[2020-03-20 05:41] LABS: ABS Eosinophils 0.1 10^3/ul (0-0.6); ABS Lymphocytes 1.3 10^3/ul (1.0-4.8); ABS Monocytes 0.1 10^3/ul (0-0.8); ABS Neutrophils 2.3 10^3/ul (1.5-7.7); Eosinophil % 3.3 %; Hematocrit 28 % (35-47); Hemoglobin 9.4 g/dL (12.0-16.0); Lymphocyte % 32.8 %; Mean Corpuscular HGB Conc 33 g/dL (31-36); Mean Corpuscular Hemoglobin 32 pg (27-31); Mean Corpuscular Volume 94 fL (80-97); Mean Platelet Volume 7.7 fL (7.4-10.4); Nucleated Red Blood Cells % 0.1; Platelet Count 214 10^3/uL (150-450); Red Blood Count 2.99 10^6 /uL (3.70-4.87); Red Cell Distribution Width 17 % (10-15); White Blood Count 3.9 10^3/uL (3.5-10.8)
[2020-03-20 06:07] LABS: Albumin 2.6 g/dL (3.2-5.2); Albumin/Globulin Ratio 1.1 (1-3); BUN/Creatinine Ratio 10.4 (8-20); Calcium 8.3 mg/dL (8.6-10.3); EGFR African American 117.4 (>60); Globulin 2.3 g/dL (2-4); Potassium 3.7 mmol/L (3.5-5.0); Total Bilirubin 0.4 mg/dL (0.2-1.0); Total Protein 4.9 g/dL (6.4-8.9)
[2020-03-20] MEDS: Potassium Chlor 20 meq TAB.ER PO SCH (10:25)
[2020-03-20 13:23] VITALS: BP 134/62
[2020-03-20] MEDS: Enoxaparin 40 MG/0.4 ML SYR SUBCUT SCH (15:16)
== END 2020-03-20 16:04 | disposition home or self-care (01) | DRG 949 ==
LOC: CHOA 08:06 → MED 12:19
PROVIDERS: ADMIT Internal Medicine Hematology & Oncology; ATTEND Internal Medicine Hematology & Oncology

== ENCOUNTER 2020-11-02 18:30 | Observation (INO) ==
[2020-11-02] MEDS ORDERED: NS 0.9% 1000 ml BAG 1,000 ML IV ONE (18:51)
[2020-11-02 18:58] LABS: ABS Basophils 0.1 10^3/ul (0-0.2); ABS Eosinophils 0.1 10^3/ul (0-0.6); ABS Lymphocytes 1.5 10^3/ul (1.0-4.8); ABS Monocytes 0.5 10^3/ul (0-0.8); ABS Neutrophils 5.7 10^3/ul (1.5-7.7); Eosinophil % 0.8 %; Hematocrit 39 % (35-47); Hemoglobin 13.2 g/dL (12.0-16.0); Lymphocyte % 18.5 %; Mean Corpuscular HGB Conc 34 g/dL (31-36); Mean Corpuscular Hemoglobin 30 pg (27-31); Mean Corpuscular Volume 89 fL (80-97); Mean Platelet Volume 8.2 fL (7.4-10.4); Platelet Count 230 10^3/uL (150-450); Red Blood Count 4.44 10^6 /uL (3.70-4.87); Red Cell Distribution Width 19 % (10-15); White Blood Count 7.9 10^3/uL (3.5-10.8)
[2020-11-02 19:18] LABS: Activated Partial Thrombo Time 30.4 seconds (26.0-38.0); INR 1.16 (0.82-1.09)
[2020-11-02 19:42] LABS: Albumin 3.5 g/dL (3.2-5.2); Albumin/Globulin Ratio 1.1 (1-3); Calcium 9.9 mg/dL (8.6-10.3); EGFR African American 106.3 (>60); EGFR Non-African American 87.9 (>60); Globulin 3.2 g/dL (2-4); HDL Cholesterol 64.4 mg/dL; Potassium 3.9 mmol/L (3.5-5.0); Total Bilirubin 0.6 mg/dL (0.2-1.0); Total Protein 6.7 g/dL (6.4-8.9)
[2020-11-02] MEDS ORDERED: Ondansetron 4 mg VIAL 2 MG/ML 2 ml VIAL IV ONE (20:21)
[2020-11-02] MEDS ORDERED: levETIRAcetam 1000MG IVPREMIX 1,000 MG/100 ML BAG IVPB ONE (20:21)
[2020-11-03 05:42] LABS: Urine Appearance Cloudy; Urine Bilirubin Negative (Negative); Urine Blood Negative (Negative); Urine Color Yellow; Urine Glucose Negative (Negative); Urine Ketones 1+ (Negative); Urine Nitrite Negative (Negative); Urine Protein 1+(30 mg/dL) (Negative); Urine Specific Gravity 1.013 (1.002-1.030); Urine Urobilinogen Negative (Negative)
[2020-11-03 06:56] LABS: Urine Bacteria 1+ (Absent); Urine Red Blood Cell Trace(0-2/hpf) (Absent); Urine Squamous Epithelial Cell Present (Absent); Urine White Blood Cell Absent (Absent)
[2020-11-03] MEDS ORDERED: Gadoteridol (CONTRAST) 279.3 MG/ML 10 ML IV ONE (12:19)
[2020-11-03] MEDS ORDERED: Senna TAB 8.6 mg TAB PO PRN (12:29)
[2020-11-03] MEDS ORDERED: Magnesium Hydroxide LIQ 30 ML UDC PO PRN (12:30)
[2020-11-03] MEDS ORDERED: Magnesium Hydroxide LIQ 30 ML UDC ONE (18:19)
[2020-11-03] MEDS ORDERED: Senna TAB 8.6 mg TAB ONE (18:20)
[2020-11-04] MEDS ORDERED: LORazepam 2 mg VIAL 1 ml IV PUSH PRN (01:17)
[2020-11-04] MEDS ORDERED: Ondansetron 4 mg VIAL 2 MG/ML 2 ml VIAL IV PRN (01:18)
[2020-11-04] MEDS ORDERED: Lorazepam PYXIS KEY PRN (01:19)
[2020-11-04] MEDS: Morphine 2 MG/ML SYRINGE IV PRN (21:32)
[2020-11-05] MEDS: Morphine 2 MG/ML SYRINGE IV PRN ×3 (03:24→12:36)
[2020-11-05 14:51] VITALS: BP 149/98
== END 2020-11-05 13:04 | disposition home or self-care (01) ==
LOC: MEDTELE 18:30 → ED 18:30 → MEDTELE 23:44
PROVIDERS: ADMIT Internal Medicine; ATTEND Internal Medicine Hematology & Oncology

== ENCOUNTER 2020-11-09 10:34 | Inpatient (IN) ==
[2020-11-09 12:27] LABS: Urine Appearance Cloudy; Urine Bilirubin Negative (Negative); Urine Blood Negative (Negative); Urine Color Yellow; Urine Glucose Negative (Negative); Urine Ketones Negative (Negative); Urine Nitrite Negative (Negative); Urine Protein Negative (Negative); Urine Urobilinogen Negative (Negative)
[2020-11-09 13:36] LABS: ALT 18 U/L (7-52); AST 14 U/L (13-39); Albumin 3.4 g/dL (3.2-5.2); Albumin/Globulin Ratio 1.2 (1-3); Alkaline Phosphatase 61 U/L (34-104); Anion Gap 10 mmol/L (2-11); Blood Urea Nitrogen 11 mg/dL (6-24); CO2 Carbon Dioxide 27 mmol/L (22-32); Calcium 9.4 mg/dL (8.6-10.3); Chloride 102 mmol/L (101-111); EGFR African American 164.5 (>60); Globulin 2.8 g/dL (2-4); Glucose 107 mg/dL (70-100); Potassium 3.4 mmol/L (3.5-5.0); Sodium 139 mmol/L (135-145); Total Protein 6.2 g/dL (6.4-8.9)
[2020-11-09 13:39] LABS: Troponin I 0.04 ng/mL (<0.03)
[2020-11-09 13:39] LABS: ABS Lymphocytes 1.9 10^3/ul (1.0-4.8); ABS Monocytes 0.6 10^3/ul (0-0.8); ABS Neutrophils 6.7 10^3/ul (1.5-7.7); Eosinophil % 0.1 %; Hematocrit 41 % (35-47); Hemoglobin 13.6 g/dL (12.0-16.0); Lymphocyte % 20.2 %; Mean Corpuscular HGB Conc 33 g/dL (31-36); Mean Corpuscular Hemoglobin 29 pg (27-31); Mean Corpuscular Volume 89 fL (80-97); Mean Platelet Volume 8.1 fL (7.4-10.4); Platelet Count 201 10^3/uL (150-450); Red Blood Count 4.65 10^6 /uL (3.70-4.87); Red Cell Distribution Width 19 % (10-15); White Blood Count 9.2 10^3/uL (3.5-10.8)
[2020-11-09 14:12] LABS: TSH Ultra Thyroid Stim Horm 1.46 mcIU/mL (0.34-5.60)
[2020-11-09] MEDS ORDERED: Dexamethasone IV 4 MG/ML VIAL 1 ml VIAL IV SLOW PU ONE ×2 (14:22→14:51)
[2020-11-09] MEDS ORDERED: Ondansetron 4 mg VIAL 2 MG/ML 2 ml VIAL IV PRN (16:20)
[2020-11-09] MEDS: Senna TAB 8.6 mg TAB PO SCH (22:13)
[2020-11-09] MEDS: Magnesium Hydroxide LIQ 30 ML UDC PO PRN (22:14)
[2020-11-09] MEDS: Docusate LIQ 100 MG/10 ML UDC PO SCH (22:14)
[2020-11-09] MEDS: Polyethylene Glycol 3350 17 GM PACKET PO SCH (22:14)
[2020-11-10 06:22] LABS: ABS Lymphocytes 1.8 10^3/ul (1.0-4.8); ABS Monocytes 0.7 10^3/ul (0-0.8); ABS Neutrophils 6.6 10^3/ul (1.5-7.7); Eosinophil % 0.2 %; Hematocrit 38 % (35-47); Hemoglobin 12.8 g/dL (12.0-16.0); Lymphocyte % 19.4 %; Mean Corpuscular HGB Conc 33 g/dL (31-36); Mean Corpuscular Hemoglobin 29 pg (27-31); Mean Corpuscular Volume 88 fL (80-97); Mean Platelet Volume 8.1 fL (7.4-10.4); Platelet Count 206 10^3/uL (150-450); Red Blood Count 4.36 10^6 /uL (3.70-4.87); Red Cell Distribution Width 19 % (10-15)
[2020-11-10 06:36] LABS: BUN/Creatinine Ratio 23.7 (8-20); Calcium 8.8 mg/dL (8.6-10.3); EGFR African American 135.9 (>60); EGFR Non-African American 112.3 (>60)
[2020-11-10] MEDS: Polyethylene Glycol 3350 17 GM PACKET PO SCH ×2 (09:19→20:26)
[2020-11-10] MEDS: Docusate LIQ 100 MG/10 ML UDC PO SCH ×2 (09:21→20:25)
[2020-11-10] MEDS: Senna TAB 8.6 mg TAB PO SCH ×2 (09:22→20:29)
[2020-11-10] MEDS: Morphine 2 MG/ML SYRINGE IV PRN ×5 (15:18→22:54)
[2020-11-10] MEDS ORDERED: Lorazepam PYXIS KEY PRN (21:12)
[2020-11-10] MEDS: LORazepam 2 mg VIAL 1 ml IV PUSH PRN (21:28)
[2020-11-11] MEDS: Morphine 2 MG/ML SYRINGE IV PRN ×7 (00:55→20:12)
[2020-11-11] MEDS: Prochlorperazine 5 mg/ml 2 ml VIAL (10 mg) IV PRN ×2 (05:50→16:26)
[2020-11-11] MEDS: Docusate LIQ 100 MG/10 ML UDC PO SCH ×2 (08:24→20:09)
[2020-11-11] MEDS: Polyethylene Glycol 3350 17 GM PACKET PO SCH ×2 (08:24→20:08)
[2020-11-11] MEDS: Senna TAB 8.6 mg TAB PO SCH ×2 (08:26→20:08)
[2020-11-11] MEDS: LORazepam 2 mg VIAL 1 ml IV PUSH PRN (20:05)
[2020-11-12] MEDS: Prochlorperazine 5 mg/ml 2 ml VIAL (10 mg) IV PRN ×2 (08:52→18:43)
[2020-11-12] MEDS: Morphine 2 MG/ML SYRINGE IV PRN ×5 (08:57→23:35)
[2020-11-12] MEDS: Senna TAB 8.6 mg TAB PO SCH ×2 (09:03→19:55)
[2020-11-12] MEDS: Docusate LIQ 100 MG/10 ML UDC PO SCH ×2 (09:03→19:54)
[2020-11-12] MEDS: Polyethylene Glycol 3350 17 GM PACKET PO SCH ×2 (09:03→19:57)
[2020-11-12] MEDS: LORazepam 2 mg VIAL 1 ml IV PUSH PRN ×2 (12:07→20:03)
[2020-11-13 05:53] LABS: ABS Lymphocytes 1.6 10^3/ul (1.0-4.8); ABS Monocytes 0.7 10^3/ul (0-0.8); ABS Neutrophils 7.2 10^3/ul (1.5-7.7); Eosinophil % 0.2 %; Hematocrit 38 % (35-47); Hemoglobin 12.6 g/dL (12.0-16.0); Lymphocyte % 16.5 %; Mean Corpuscular HGB Conc 33 g/dL (31-36); Mean Corpuscular Hemoglobin 30 pg (27-31); Mean Corpuscular Volume 89 fL (80-97); Mean Platelet Volume 8.2 fL (7.4-10.4); Platelet Count 171 10^3/uL (150-450); Red Blood Count 4.25 10^6 /uL (3.70-4.87); Red Cell Distribution Width 19 % (10-15); White Blood Count 9.5 10^3/uL (3.5-10.8)
[2020-11-13 06:08] LABS: Albumin/Globulin Ratio 1.3 (1-3); BUN/Creatinine Ratio 22.2 (8-20); EGFR African American 185.8 (>60); EGFR Non-African American 153.5 (>60); Globulin 2.4 g/dL (2-4); Potassium 3.5 mmol/L (3.5-5.0); Total Bilirubin 0.4 mg/dL (0.2-1.0); Total Protein 5.4 g/dL (6.4-8.9)
[2020-11-13] MEDS: Morphine 2 MG/ML SYRINGE IV PRN ×4 (08:50→21:58)
[2020-11-13] MEDS: Prochlorperazine 5 mg/ml 2 ml VIAL (10 mg) IV PRN ×2 (08:51→18:02)
[2020-11-13] MEDS: Docusate LIQ 100 MG/10 ML UDC PO SCH ×2 (08:57→21:51)
[2020-11-13] MEDS: Polyethylene Glycol 3350 17 GM PACKET PO SCH ×2 (08:58→21:55)
[2020-11-13] MEDS: Senna TAB 8.6 mg TAB PO SCH ×2 (08:58→21:53)
[2020-11-13] MEDS: LORazepam 2 mg VIAL 1 ml IV PUSH PRN (21:46)
[2020-11-13] MEDS: Magnesium Hydroxide LIQ 30 ML UDC PO PRN (21:52)
[2020-11-14] MEDS: Docusate LIQ 100 MG/10 ML UDC PO SCH ×2 (09:01→21:22)
[2020-11-14] MEDS: Morphine 2 MG/ML SYRINGE IV PRN ×4 (09:01→21:57)
[2020-11-14] MEDS: Senna TAB 8.6 mg TAB PO SCH ×2 (09:02→21:18)
[2020-11-14] MEDS: Polyethylene Glycol 3350 17 GM PACKET PO SCH ×3 (09:02→21:08)
[2020-11-14] MEDS: LORazepam 2 mg VIAL 1 ml IV PUSH PRN (09:16)
[2020-11-14] MEDS: Prochlorperazine 5 mg/ml 2 ml VIAL (10 mg) IV PRN (14:19)
[2020-11-14] MEDS: Magnesium Hydroxide LIQ 30 ML UDC PO PRN (21:22)
[2020-11-15] MEDS: Morphine 2 MG/ML SYRINGE IV PRN ×5 (06:01→19:51)
[2020-11-15 07:01] LABS: Calcium 9.1 mg/dL (8.6-10.3); EGFR African American 164.5 (>60); Potassium 3.6 mmol/L (3.5-5.0)
[2020-11-15] MEDS: Docusate LIQ 100 MG/10 ML UDC PO SCH ×2 (09:14→19:50)
[2020-11-15] MEDS: Polyethylene Glycol 3350 17 GM PACKET PO SCH ×2 (09:14→19:40)
[2020-11-15] MEDS: Magnesium Hydroxide LIQ 30 ML UDC PO PRN (09:15)
[2020-11-15] MEDS: Prochlorperazine 5 mg/ml 2 ml VIAL (10 mg) IV PRN ×2 (09:16→17:22)
[2020-11-15] MEDS: Senna TAB 8.6 mg TAB PO SCH ×2 (09:18→19:48)
[2020-11-16] MEDS: Morphine 2 MG/ML SYRINGE IV PRN ×5 (03:12→20:56)
[2020-11-16] MEDS: Prochlorperazine 5 mg/ml 2 ml VIAL (10 mg) IV PRN ×3 (03:13→21:04)
[2020-11-16] MEDS: Docusate LIQ 100 MG/10 ML UDC PO SCH ×2 (09:28→21:18)
[2020-11-16] MEDS: Senna TAB 8.6 mg TAB PO SCH ×2 (09:28→21:15)
[2020-11-16] MEDS: Polyethylene Glycol 3350 17 GM PACKET PO SCH (09:29)
[2020-11-17] MEDS: Polyethylene Glycol 3350 17 GM PACKET PO SCH ×3 (01:32→21:00)
[2020-11-17] MEDS: Morphine 2 MG/ML SYRINGE IV PRN ×5 (06:08→20:58)
[2020-11-17] MEDS: Prochlorperazine 5 mg/ml 2 ml VIAL (10 mg) IV PRN (11:20)
[2020-11-17] MEDS: Docusate LIQ 100 MG/10 ML UDC PO SCH ×2 (11:22→21:15)
[2020-11-17] MEDS: Senna TAB 8.6 mg TAB PO SCH ×2 (11:35→20:52)
[2020-11-18] MEDS: Morphine 2 MG/ML SYRINGE IV PRN ×3 (09:47→21:15)
[2020-11-18] MEDS: Prochlorperazine 5 mg/ml 2 ml VIAL (10 mg) IV PRN ×2 (09:47→17:37)
[2020-11-18] MEDS: Docusate LIQ 100 MG/10 ML UDC PO SCH ×2 (09:49→21:15)
[2020-11-18] MEDS: Senna TAB 8.6 mg TAB PO SCH ×2 (09:49→21:30)
[2020-11-18] MEDS: Polyethylene Glycol 3350 17 GM PACKET PO SCH ×2 (09:50→21:30)
[2020-11-18] MEDS: Al Hydrox/Mg Hydrox/Simet LIQ 30 ML UDC PO PRN ×2 (16:43→21:15)
[2020-11-19] MEDS: Polyethylene Glycol 3350 17 GM PACKET PO SCH ×2 (10:39→19:50)
[2020-11-19] MEDS: Al Hydrox/Mg Hydrox/Simet LIQ 30 ML UDC PO PRN (10:40)
[2020-11-19] MEDS: Morphine 2 MG/ML SYRINGE IV PRN ×4 (10:41→19:56)
[2020-11-19] MEDS: Docusate LIQ 100 MG/10 ML UDC PO SCH ×2 (10:42→19:51)
[2020-11-19] MEDS: Senna TAB 8.6 mg TAB PO SCH ×2 (10:42→19:55)
[2020-11-19] MEDS: Prochlorperazine 5 mg/ml 2 ml VIAL (10 mg) IV PRN (17:21)
[2020-11-20] MEDS: Morphine 2 MG/ML SYRINGE IV PRN ×2 (10:14→13:13)
[2020-11-20] MEDS: Senna TAB 8.6 mg TAB PO SCH (10:15)
[2020-11-20] MEDS: Magnesium Hydroxide LIQ 30 ML UDC PO PRN (10:15)
[2020-11-20] MEDS: Docusate LIQ 100 MG/10 ML UDC PO SCH (10:15)
[2020-11-20] MEDS: Polyethylene Glycol 3350 17 GM PACKET PO SCH (10:16)
[2020-11-20 11:27] VITALS: BP 123/83
[2020-11-20] MEDS: Prochlorperazine 5 mg/ml 2 ml VIAL (10 mg) IV PRN (13:13)
== END 2020-11-20 14:20 | DRG 948 ==
LOC: ED 10:34 → MED 17:51
PROVIDERS: ADMIT Internal Medicine Hematology & Oncology; ATTEND Internal Medicine Hematology & Oncology

== ENCOUNTER 2020-11-21 17:01 | Observation (INO) ==
[2020-11-21] MEDS ORDERED: NS 0.9% 1000 ml BAG 1,000 ML IV ONE (17:36)
[2020-11-21 18:39] LABS: ABS Lymphocytes 0.6 10^3/ul (1.0-4.8); ABS Monocytes 0.3 10^3/ul (0-0.8); ABS Neutrophils 8.5 10^3/ul (1.5-7.7); Hematocrit 39 % (35-47); Lymphocyte % 6.7 %; Mean Corpuscular HGB Conc 33 g/dL (31-36); Mean Corpuscular Hemoglobin 30 pg (27-31); Mean Corpuscular Volume 89 fL (80-97); Platelet Count 188 10^3/uL (150-450); Red Blood Count 4.39 10^6 /uL (3.70-4.87); Red Cell Distribution Width 18 % (10-15); White Blood Count 9.5 10^3/uL (3.5-10.8)
[2020-11-21 18:56] LABS: Albumin 3.2 g/dL (3.2-5.2); Albumin/Globulin Ratio 1.3 (1-3); C Reactive Protein 2.67 mg/L (<8.01); Calcium 8.9 mg/dL (8.6-10.3); EGFR African American 115.4 (>60); EGFR Non-African American 95.4 (>60); Globulin 2.5 g/dL (2-4); Potassium 3.6 mmol/L (3.5-5.0); Total Bilirubin 0.2 mg/dL (0.2-1.0); Total Protein 5.7 g/dL (6.4-8.9)
[2020-11-22] MEDS ORDERED: Calcium Carb (TUMS) 500 mg CHEW TAB PO ONE (00:01)
[2020-11-22] MEDS ORDERED: Magnesium Hydroxide LIQ 30 ML UDC PO ONE (02:52)
[2020-11-22] MEDS: Senna TAB 8.6 mg TAB PO SCH ×2 (08:20→21:09)
[2020-11-22] MEDS: Docusate LIQ 100 MG/10 ML UDC PO SCH ×2 (08:20→21:09)
[2020-11-22] MEDS: Polyethylene Glycol 3350 17 GM PACKET PO SCH ×2 (08:21→21:47)
[2020-11-22] MEDS: Morphine 2 MG/ML SYRINGE IV PRN ×2 (15:39→21:08)
[2020-11-23] MEDS: Morphine 2 MG/ML SYRINGE IV PRN ×3 (09:01→17:32)
[2020-11-23] MEDS: Docusate LIQ 100 MG/10 ML UDC PO SCH ×2 (09:08→19:49)
[2020-11-23] MEDS: Senna TAB 8.6 mg TAB PO SCH ×2 (09:10→19:49)
[2020-11-23] MEDS: Polyethylene Glycol 3350 17 GM PACKET PO SCH ×2 (09:11→19:50)
[2020-11-23] MEDS: Magnesium Hydroxide LIQ 30 ML UDC PO PRN (13:21)
[2020-11-23] MEDS: Calcium Carb (TUMS) 500 mg CHEW TAB PO PRN (16:44)
[2020-11-24] MEDS: Morphine 2 MG/ML SYRINGE IV PRN ×2 (01:15→05:13)
[2020-11-24] MEDS: Calcium Carb (TUMS) 500 mg CHEW TAB PO PRN ×2 (05:13→08:23)
[2020-11-24] MEDS: Senna TAB 8.6 mg TAB PO SCH (08:23)
[2020-11-24] MEDS: Polyethylene Glycol 3350 17 GM PACKET PO SCH (08:23)
[2020-11-24] MEDS: Magnesium Hydroxide LIQ 30 ML UDC PO PRN (08:24)
[2020-11-24] MEDS: Docusate LIQ 100 MG/10 ML UDC PO SCH (08:25)
[2020-11-24 09:32] VITALS: BP 124/72
== END 2020-11-24 10:00 | disposition swing bed (61) ==
LOC: ED 17:01 → MED 17:01
PROVIDERS: ADMIT Internal Medicine; ATTEND Internal Medicine Hematology & Oncology

== ENCOUNTER 2020-11-24 10:40 | Inpatient (IN) ==
[2020-11-24] MEDS: Morphine 2 MG/ML SYRINGE IV PRN ×3 (12:24→22:03)
[2020-11-24] MEDS: Senna TAB 8.6 mg TAB PO SCH (21:53)
[2020-11-24] MEDS: Polyethylene Glycol 3350 17 GM PACKET PO SCH (21:53)
[2020-11-25] MEDS: Morphine 2 MG/ML SYRINGE IV PRN ×4 (05:16→18:26)
[2020-11-25 05:56] LABS: Hematocrit 38 % (35-47); Hemoglobin 12.3 g/dL (12.0-16.0); Mean Corpuscular HGB Conc 33 g/dL (31-36); Mean Corpuscular Hemoglobin 30 pg (27-31); Mean Corpuscular Volume 91 fL (80-97); Platelet Count 166 10^3/uL (150-450); Red Blood Count 4.15 10^6 /uL (3.70-4.87); Red Cell Distribution Width 18 % (10-15)
[2020-11-25 06:09] LABS: Blood Urea Nitrogen 14 mg/dL (6-24); CO2 Carbon Dioxide 28 mmol/L (22-32); Calcium 8.8 mg/dL (8.6-10.3); Chloride 102 mmol/L (101-111); EGFR African American 138.6 (>60); EGFR Non-African American 114.6 (>60); Glucose 150 mg/dL (70-100); Sodium 137 mmol/L (135-145)
[2020-11-25 06:10] LABS: Anion Gap 7 mmol/L (2-11)
[2020-11-25 06:26] LABS: ABS Lymphocytes 1.8 10^3/ul (1.0-4.8); ABS Monocytes 0.7 10^3/ul (0-0.8); ABS Neutrophils 8.4 10^3/ul (1.5-7.7); Eosinophil % 0.3 %; Lymphocyte % 16.5 %; Nucleated Red Blood Cells % 0.1
[2020-11-25] MEDS: Senna TAB 8.6 mg TAB PO SCH ×2 (09:47→21:27)
[2020-11-25] MEDS: Polyethylene Glycol 3350 17 GM PACKET PO SCH ×2 (09:50→21:25)
[2020-11-25] MEDS: Calcium Carb (TUMS) 500 mg CHEW TAB PO PRN ×2 (09:59→19:33)
[2020-11-26] MEDS: Morphine 2 MG/ML SYRINGE IV PRN ×3 (07:49→18:26)
[2020-11-26] MEDS: Senna TAB 8.6 mg TAB PO SCH ×2 (07:52→20:39)
[2020-11-26] MEDS: Polyethylene Glycol 3350 17 GM PACKET PO SCH ×2 (07:53→20:41)
[2020-11-26 11:58] LABS: Hematocrit 39 % (35-47); Mean Corpuscular HGB Conc 34 g/dL (31-36); Mean Corpuscular Hemoglobin 30 pg (27-31); Mean Corpuscular Volume 89 fL (80-97); Mean Platelet Volume 7.9 fL (7.4-10.4); Platelet Count 156 10^3/uL (150-450); Red Blood Count 4.33 10^6 /uL (3.70-4.87); Red Cell Distribution Width 18 % (10-15); White Blood Count 10.3 10^3/uL (3.5-10.8)
[2020-11-26 12:10] LABS: Albumin/Globulin Ratio 1.3 (1-3); Calcium 9.2 mg/dL (8.6-10.3); EGFR African American 135.9 (>60); EGFR Non-African American 112.3 (>60); Globulin 2.4 g/dL (2-4); Total Bilirubin 0.2 mg/dL (0.2-1.0); Total Protein 5.4 g/dL (6.4-8.9)
[2020-11-26 12:18] LABS: Potassium 3.9 mmol/L (3.5-5.0)
[2020-11-26 13:11] LABS: ABS Lymphocytes 0.9 10^3/ul (1.0-4.8); ABS Monocytes 0.3 10^3/ul (0-0.8); ABS Neutrophils 9.1 10^3/ul (1.5-7.7); Eosinophil % 0.1 %; Lymphocyte % 8.4 %; Nucleated Red Blood Cells % 0.1
[2020-11-26] MEDS: Calcium Carb (TUMS) 500 mg CHEW TAB PO PRN (20:59)
[2020-11-27] MEDS: Morphine 2 MG/ML SYRINGE IV PRN ×4 (02:39→19:40)
[2020-11-27 06:01] LABS: Hematocrit 37 % (35-47); Hemoglobin 12.2 g/dL (12.0-16.0); Mean Corpuscular HGB Conc 33 g/dL (31-36); Mean Corpuscular Hemoglobin 30 pg (27-31); Mean Corpuscular Volume 90 fL (80-97); Mean Platelet Volume 7.8 fL (7.4-10.4); Platelet Count 155 10^3/uL (150-450); Red Blood Count 4.08 10^6 /uL (3.70-4.87); Red Cell Distribution Width 18 % (10-15); White Blood Count 10.6 10^3/uL (3.5-10.8)
[2020-11-27 06:25] LABS: Albumin 2.8 g/dL (3.2-5.2); Albumin/Globulin Ratio 1.3 (1-3); Calcium 8.8 mg/dL (8.6-10.3); EGFR African American 176.7 (>60); Globulin 2.1 g/dL (2-4); Potassium 3.9 mmol/L (3.5-5.0); Total Bilirubin 0.2 mg/dL (0.2-1.0); Total Protein 4.9 g/dL (6.4-8.9)
[2020-11-27 06:30] LABS: ABS Monocytes 0.7 10^3/ul (0-0.8); ABS Neutrophils 7.9 10^3/ul (1.5-7.7); Eosinophil % 0.4 %; Lymphocyte % 18.8 %; Nucleated Red Blood Cells % 0.1
[2020-11-27] MEDS: Senna TAB 8.6 mg TAB PO SCH ×2 (09:29→19:39)
[2020-11-27] MEDS: Polyethylene Glycol 3350 17 GM PACKET PO SCH ×2 (09:30→19:31)
[2020-11-27 17:02] LABS: Urine Appearance Clear; Urine Bilirubin Negative (Negative); Urine Blood Negative (Negative); Urine Color Yellow; Urine Glucose 1+(50 mg/dL) (Negative); Urine Ketones Trace (Negative); Urine Nitrite Negative (Negative); Urine Protein Negative (Negative); Urine Specific Gravity 1.014 (1.002-1.030); Urine Urobilinogen Negative (Negative)
[2020-11-28] MEDS: Morphine 2 MG/ML SYRINGE IV PRN ×2 (03:34→09:25)
[2020-11-28] MEDS: Senna TAB 8.6 mg TAB PO SCH ×2 (09:21→20:50)
[2020-11-28] MEDS: Polyethylene Glycol 3350 17 GM PACKET PO SCH ×3 (09:32→20:52)
[2020-11-28] MEDS: Calcium Carb (TUMS) 500 mg CHEW TAB PO PRN (09:37)
[2020-11-29] MEDS: Senna TAB 8.6 mg TAB PO SCH ×3 (09:07→19:28)
[2020-11-29] MEDS: Polyethylene Glycol 3350 17 GM PACKET PO SCH ×2 (09:13→19:28)
[2020-11-30] MEDS: Calcium Carb (TUMS) 500 mg CHEW TAB PO PRN ×2 (00:04→21:33)
[2020-11-30] MEDS: Senna TAB 8.6 mg TAB PO SCH ×2 (09:27→21:33)
[2020-11-30] MEDS: Polyethylene Glycol 3350 17 GM PACKET PO SCH ×2 (09:28→22:33)
[2020-12-01] MEDS: Calcium Carb (TUMS) 500 mg CHEW TAB PO PRN ×2 (02:39→21:39)
[2020-12-01] MEDS: Senna TAB 8.6 mg TAB PO SCH ×2 (10:56→20:04)
[2020-12-01] MEDS: Polyethylene Glycol 3350 17 GM PACKET PO SCH ×3 (10:58→22:53)
[2020-12-02] MEDS: Calcium Carb (TUMS) 500 mg CHEW TAB PO PRN ×2 (02:57→21:58)
[2020-12-02] MEDS: Polyethylene Glycol 3350 17 GM PACKET PO SCH ×2 (08:18→20:35)
[2020-12-02] MEDS: Magnesium Hydroxide LIQ 30 ML UDC PO PRN (08:18)
[2020-12-02] MEDS: Senna TAB 8.6 mg TAB PO SCH ×2 (08:19→20:29)
[2020-12-03] MEDS: Senna TAB 8.6 mg TAB PO SCH ×3 (08:01→21:43)
[2020-12-03] MEDS: Polyethylene Glycol 3350 17 GM PACKET PO SCH ×2 (08:02→21:34)
[2020-12-04] MEDS: Polyethylene Glycol 3350 17 GM PACKET PO SCH ×2 (09:11→20:22)
[2020-12-04] MEDS: Senna TAB 8.6 mg TAB PO SCH ×2 (09:11→20:22)
[2020-12-04] MEDS ORDERED: Alteplase (CATHFLO) 2 MG VIAL IV ONE (10:00)
[2020-12-05] MEDS: Polyethylene Glycol 3350 17 GM PACKET PO SCH ×2 (08:40→20:27)
[2020-12-05] MEDS: Senna TAB 8.6 mg TAB PO SCH ×3 (08:40→20:27)
[2020-12-05] MEDS: Nystatin SUSPENSION 100,000 UNITS/ML UDC PO SCH ×4 (10:03→20:23)
[2020-12-05] MEDS: Magnesium Hydroxide LIQ 30 ML UDC PO PRN (10:25)
[2020-12-05] MEDS: Calcium Carb (TUMS) 500 mg CHEW TAB PO PRN ×2 (10:25→20:22)
[2020-12-06] MEDS: Polyethylene Glycol 3350 17 GM PACKET PO SCH ×2 (07:59→22:06)
[2020-12-06] MEDS: Nystatin SUSPENSION 100,000 UNITS/ML UDC PO SCH ×4 (08:00→22:07)
[2020-12-06] MEDS: Calcium Carb (TUMS) 500 mg CHEW TAB PO PRN (08:01)
[2020-12-06] MEDS: Senna TAB 8.6 mg TAB PO SCH ×2 (08:01→22:06)
[2020-12-07] MEDS: Senna TAB 8.6 mg TAB PO SCH ×2 (07:51→21:43)
[2020-12-07] MEDS: Polyethylene Glycol 3350 17 GM PACKET PO SCH ×2 (07:52→21:45)
[2020-12-07] MEDS: Nystatin SUSPENSION 100,000 UNITS/ML UDC PO SCH ×4 (07:56→21:43)
[2020-12-07] MEDS: OLAPARIB 150 MG PO SCH (22:47)
[2020-12-08] MEDS: Senna TAB 8.6 mg TAB PO SCH ×2 (07:28→20:44)
[2020-12-08] MEDS: OLAPARIB 150 MG PO SCH ×2 (07:29→20:42)
[2020-12-08] MEDS: Nystatin SUSPENSION 100,000 UNITS/ML UDC PO SCH ×4 (07:30→20:44)
[2020-12-08] MEDS: Polyethylene Glycol 3350 17 GM PACKET PO SCH ×2 (07:32→20:45)
[2020-12-08] MEDS: Calcium Carb (TUMS) 500 mg CHEW TAB PO PRN (20:42)
[2020-12-09 05:48] LABS: Hematocrit 39 % (35-47); Hemoglobin 12.7 g/dL (12.0-16.0); Mean Corpuscular HGB Conc 33 g/dL (31-36); Mean Corpuscular Hemoglobin 30 pg (27-31); Mean Corpuscular Volume 90 fL (80-97); Platelet Count 203 10^3/uL (150-450); Red Blood Count 4.27 10^6 /uL (3.70-4.87); Red Cell Distribution Width 19 % (10-15); White Blood Count 8.3 10^3/uL (3.5-10.8)
[2020-12-09 06:14] LABS: Albumin 2.9 g/dL (3.2-5.2); Calcium 9.1 mg/dL (8.6-10.3); Potassium 3.9 mmol/L (3.5-5.0); Total Bilirubin 0.3 mg/dL (0.2-1.0)
[2020-12-09 06:19] LABS: EGFR African American 128.4 (>60); EGFR Non-African American 106.1 (>60); Globulin 2.4 g/dL (2-4); Total Protein 5.3 g/dL (6.4-8.9)
[2020-12-09 06:20] LABS: Albumin/Globulin Ratio 1.2 (1-3)
[2020-12-09 07:22] LABS: ABS Lymphocytes 1.7 10^3/ul (1.0-4.8); ABS Monocytes 0.5 10^3/ul (0-0.8); ABS Neutrophils 6.1 10^3/ul (1.5-7.7); Eosinophil % 0.4 %; Lymphocyte % 20.2 %; Nucleated Red Blood Cells % 0.1
[2020-12-09] MEDS: Nystatin SUSPENSION 100,000 UNITS/ML UDC PO SCH ×4 (08:06→21:10)
[2020-12-09] MEDS: Polyethylene Glycol 3350 17 GM PACKET PO SCH ×2 (08:06→21:11)
[2020-12-09] MEDS: Senna TAB 8.6 mg TAB PO SCH ×2 (08:07→21:08)
[2020-12-09] MEDS: OLAPARIB 150 MG PO SCH ×2 (08:07→21:10)
[2020-12-09] MEDS: Calcium Carb (TUMS) 500 mg CHEW TAB PO PRN (16:26)
[2020-12-10] MEDS: Calcium Carb (TUMS) 500 mg CHEW TAB PO PRN (03:53)
[2020-12-10] MEDS: OLAPARIB 150 MG PO SCH ×2 (07:31→20:19)
[2020-12-10] MEDS: Nystatin SUSPENSION 100,000 UNITS/ML UDC PO SCH ×4 (07:31→20:22)
[2020-12-10] MEDS: Polyethylene Glycol 3350 17 GM PACKET PO SCH ×2 (07:32→20:23)
[2020-12-10] MEDS: Senna TAB 8.6 mg TAB PO SCH ×2 (07:33→20:20)
[2020-12-11] MEDS: Magnesium Hydroxide LIQ 30 ML UDC PO PRN (02:47)
[2020-12-11] MEDS: OLAPARIB 150 MG PO SCH ×2 (07:40→20:26)
[2020-12-11] MEDS: Nystatin SUSPENSION 100,000 UNITS/ML UDC PO SCH ×4 (07:40→20:22)
[2020-12-11] MEDS: Polyethylene Glycol 3350 17 GM PACKET PO SCH ×2 (07:40→19:51)
[2020-12-11] MEDS: Senna TAB 8.6 mg TAB PO SCH ×2 (07:41→21:08)
[2020-12-12] MEDS: Senna TAB 8.6 mg TAB PO SCH ×2 (08:02→19:39)
[2020-12-12] MEDS: Polyethylene Glycol 3350 17 GM PACKET PO SCH ×2 (08:03→19:41)
[2020-12-12] MEDS: OLAPARIB 150 MG PO SCH ×2 (08:07→19:40)
[2020-12-13] MEDS: Polyethylene Glycol 3350 17 GM PACKET PO SCH (07:46)
[2020-12-13] MEDS: Senna TAB 8.6 mg TAB PO SCH ×2 (07:46→19:29)
[2020-12-13] MEDS: OLAPARIB 150 MG PO SCH (07:47)
[2020-12-13] MEDS: OLAPARIB 300 MG PO SCH (19:33)
[2020-12-14 06:25] LABS: Hematocrit 37 % (35-47); Hemoglobin 12.6 g/dL (12.0-16.0); Mean Corpuscular HGB Conc 34 g/dL (31-36); Mean Corpuscular Hemoglobin 31 pg (27-31); Mean Corpuscular Volume 91 fL (80-97); Mean Platelet Volume 7.1 fL (7.4-10.4); Platelet Count 185 10^3/uL (150-450); Red Blood Count 4.11 10^6 /uL (3.70-4.87); Red Cell Distribution Width 18 % (10-15); White Blood Count 8.2 10^3/uL (3.5-10.8)
[2020-12-14 06:41] LABS: ABS Lymphocytes 1.8 10^3/ul (1.0-4.8); ABS Monocytes 0.5 10^3/ul (0-0.8); ABS Neutrophils 5.8 10^3/ul (1.5-7.7); Albumin/Globulin Ratio 1.3 (1-3); Calcium 8.7 mg/dL (8.6-10.3); EGFR African American 135.9 (>60); EGFR Non-African American 112.3 (>60); Eosinophil % 0.5 %; Globulin 2.3 g/dL (2-4); Lymphocyte % 22.3 %; Nucleated Red Blood Cells % 0.1; Potassium 3.7 mmol/L (3.5-5.0); Total Bilirubin 0.4 mg/dL (0.2-1.0); Total Protein 5.3 g/dL (6.4-8.9)
[2020-12-14] MEDS: Senna TAB 8.6 mg TAB PO SCH ×2 (08:28→21:55)
[2020-12-14] MEDS: Polyethylene Glycol 3350 17 GM PACKET PO SCH ×3 (08:34→22:00)
[2020-12-14] MEDS: OLAPARIB 300 MG PO SCH ×2 (11:24→21:56)
[2020-12-14] MEDS: Calcium Carb (TUMS) 500 mg CHEW TAB PO PRN (17:02)
[2020-12-15] MEDS: Senna TAB 8.6 mg TAB PO SCH ×2 (08:30→20:45)
[2020-12-15] MEDS: Polyethylene Glycol 3350 17 GM PACKET PO SCH ×3 (08:30→20:45)
[2020-12-15] MEDS: OLAPARIB 300 MG PO SCH ×2 (08:30→20:45)
[2020-12-15] MEDS: Magnesium Hydroxide LIQ 30 ML UDC PO PRN (13:02)
[2020-12-15] MEDS: Calcium Carb (TUMS) 500 mg CHEW TAB PO PRN (20:48)
[2020-12-16] MEDS: Polyethylene Glycol 3350 17 GM PACKET PO SCH ×2 (08:30→21:11)
[2020-12-16] MEDS: Senna TAB 8.6 mg TAB PO SCH ×2 (08:30→21:08)
[2020-12-16] MEDS: OLAPARIB 300 MG PO SCH ×2 (08:30→21:10)
[2020-12-16] MEDS: Calcium Carb (TUMS) 500 mg CHEW TAB PO PRN (21:11)
[2020-12-17] MEDS: Magnesium Hydroxide LIQ 30 ML UDC PO PRN ×2 (02:23→08:48)
[2020-12-17] MEDS: Senna TAB 8.6 mg TAB PO SCH ×2 (08:49→21:37)
[2020-12-17] MEDS: OLAPARIB 300 MG PO SCH ×2 (08:49→21:37)
[2020-12-17] MEDS: Polyethylene Glycol 3350 17 GM PACKET PO SCH ×2 (08:50→21:36)
[2020-12-18] MEDS: Polyethylene Glycol 3350 17 GM PACKET PO SCH ×2 (07:48→21:18)
[2020-12-18] MEDS: OLAPARIB 300 MG PO SCH ×2 (07:48→21:16)
[2020-12-18] MEDS: Senna TAB 8.6 mg TAB PO SCH ×2 (07:48→21:16)
[2020-12-19] MEDS: Magnesium Hydroxide LIQ 30 ML UDC PO PRN (09:45)
[2020-12-19] MEDS: Polyethylene Glycol 3350 17 GM PACKET PO SCH ×2 (09:46→23:59)
[2020-12-19] MEDS: Senna TAB 8.6 mg TAB PO SCH ×2 (09:46→20:41)
[2020-12-19] MEDS: OLAPARIB 300 MG PO SCH ×2 (09:46→20:46)
[2020-12-19] MEDS ORDERED: COVID-19 VACCINE, MRNA(PFIZER)/PF 30 MCG/0.3 ML IM ONE (13:00)
[2020-12-19] MEDS: Calcium Carb (TUMS) 500 mg CHEW TAB PO PRN (22:11)
[2020-12-20] MEDS: OLAPARIB 300 MG PO SCH ×2 (09:53→22:36)
[2020-12-20] MEDS: Senna TAB 8.6 mg TAB PO SCH ×2 (09:55→22:34)
[2020-12-20] MEDS: Polyethylene Glycol 3350 17 GM PACKET PO SCH ×2 (09:55→22:34)
[2020-12-21] MEDS: Polyethylene Glycol 3350 17 GM PACKET PO SCH ×2 (09:19→20:08)
[2020-12-21] MEDS: Senna TAB 8.6 mg TAB PO SCH ×2 (09:19→20:09)
[2020-12-21] MEDS: OLAPARIB 300 MG PO SCH ×2 (09:21→20:20)
[2020-12-22] MEDS: Senna TAB 8.6 mg TAB PO SCH ×2 (08:48→22:23)
[2020-12-22] MEDS: Polyethylene Glycol 3350 17 GM PACKET PO SCH ×2 (08:49→22:13)
[2020-12-22] MEDS: OLAPARIB 300 MG PO SCH ×2 (08:50→22:32)
[2020-12-23] MEDS: Polyethylene Glycol 3350 17 GM PACKET PO SCH ×2 (07:26→20:19)
[2020-12-23] MEDS: Senna TAB 8.6 mg TAB PO SCH ×2 (07:27→20:19)
[2020-12-23] MEDS: OLAPARIB 300 MG PO SCH ×2 (07:28→20:21)
[2020-12-24] MEDS: Polyethylene Glycol 3350 17 GM PACKET PO SCH ×2 (08:17→20:45)
[2020-12-24] MEDS: Senna TAB 8.6 mg TAB PO SCH ×3 (08:18→20:53)
[2020-12-24] MEDS: OLAPARIB 300 MG PO SCH ×2 (08:28→20:45)
[2020-12-24 13:25] LABS: Urine Appearance Cloudy; Urine Bilirubin Negative (Negative); Urine Blood Negative (Negative); Urine Color Yellow; Urine Glucose Negative (Negative); Urine Ketones Negative (Negative); Urine Nitrite Positive (Negative); Urine Protein Negative (Negative); Urine Specific Gravity 1.012 (1.002-1.030); Urine Urobilinogen Negative (Negative)
[2020-12-24 13:27] LABS: Urine Bacteria 3+ (Absent); Urine Red Blood Cell 1+(3-5/hpf) (Absent); Urine Squamous Epithelial Cell Present (Absent); Urine White Blood Cell 3+(>20/hpf) (Absent)
[2020-12-24] MEDS: Calcium Carb (TUMS) 500 mg CHEW TAB PO PRN (20:44)
[2020-12-25] MEDS: Polyethylene Glycol 3350 17 GM PACKET PO SCH ×2 (08:00→22:20)
[2020-12-25] MEDS: OLAPARIB 300 MG PO SCH ×2 (08:01→22:20)
[2020-12-25] MEDS: Senna TAB 8.6 mg TAB PO SCH ×3 (08:11→22:23)
[2020-12-25] MEDS: Morphine 2 MG/ML SYRINGE IV PRN (22:21)
[2020-12-26] MEDS: Morphine 2 MG/ML SYRINGE IV PRN ×4 (03:41→17:33)
[2020-12-26] MEDS: OLAPARIB 300 MG PO SCH ×2 (07:57→20:26)
[2020-12-26] MEDS: Polyethylene Glycol 3350 17 GM PACKET PO SCH ×2 (07:57→20:23)
[2020-12-26] MEDS: Senna TAB 8.6 mg TAB PO SCH ×2 (07:58→20:27)
[2020-12-26] MEDS: Magnesium Hydroxide LIQ 30 ML UDC PO PRN (13:38)
[2020-12-27] MEDS: Morphine 2 MG/ML SYRINGE IV PRN ×5 (02:08→21:42)
[2020-12-27] MEDS: OLAPARIB 300 MG PO SCH ×2 (08:44→21:42)
[2020-12-27] MEDS: Polyethylene Glycol 3350 17 GM PACKET PO SCH ×2 (08:44→21:41)
[2020-12-27] MEDS: Senna TAB 8.6 mg TAB PO SCH ×2 (08:45→21:41)
[2020-12-27] MEDS: Magnesium Hydroxide LIQ 30 ML UDC PO PRN (21:38)
[2020-12-27] MEDS: Calcium Carb (TUMS) 500 mg CHEW TAB PO PRN (21:38)
[2020-12-28] MEDS: Morphine 2 MG/ML SYRINGE IV PRN ×5 (02:39→22:00)
[2020-12-28] MEDS: OLAPARIB 300 MG PO SCH ×3 (08:20→19:40)
[2020-12-28] MEDS: Polyethylene Glycol 3350 17 GM PACKET PO SCH ×2 (08:21→19:38)
[2020-12-28] MEDS: Senna TAB 8.6 mg TAB PO SCH ×2 (08:21→19:40)
[2020-12-28] MEDS: Magnesium Hydroxide LIQ 30 ML UDC PO PRN (19:38)
[2020-12-28] MEDS: Calcium Carb (TUMS) 500 mg CHEW TAB PO PRN (19:40)
[2020-12-29] MEDS: Morphine 2 MG/ML SYRINGE IV PRN ×2 (03:33→08:46)
[2020-12-29] MEDS: Senna TAB 8.6 mg TAB PO SCH (08:52)
[2020-12-29] MEDS: OLAPARIB 300 MG PO SCH (08:54)
[2020-12-29] MEDS: Polyethylene Glycol 3350 17 GM PACKET PO SCH (08:54)
[2020-12-29] MEDS ORDERED: Gadoteridol (CONTRAST) 279.3 MG/ML 10 ML IV ONE (09:33)
[2020-12-29 14:58] VITALS: BP 100/70
== END 2020-12-29 16:25 | disposition home health service (06) | DRG 885 ==
LOC: MED 10:40
PROVIDERS: ADMIT Internal Medicine Hematology & Oncology; ATTEND Internal Medicine Hematology & Oncology

== ENCOUNTER 2020-12-30 10:35 | Inpatient (IN) ==
[2020-12-30] MEDS ORDERED: Ondansetron 4 mg VIAL 2 MG/ML 2 ml VIAL IV ONE (10:41)
[2020-12-30] MEDS ORDERED: Morphine 4 MG/ML VIAL (1 ml) IV ONE (10:41)
[2020-12-30] MEDS ORDERED: NS 0.9% 1000 ml BAG 1,000 ML IV ONE (10:41)
[2020-12-30] MEDS ORDERED: Prochlorperazine 5 mg/ml 2 ml VIAL (10 mg) IV ONE (11:01)
[2020-12-30 11:42] LABS: ABS Lymphocytes 0.8 10^3/ul (1.0-4.8); ABS Monocytes 0.6 10^3/ul (0-0.8); ABS Neutrophils 3.3 10^3/ul (1.5-7.7); Eosinophil % 0.2 %; Hematocrit 36 % (35-47); Hemoglobin 12.5 g/dL (12.0-16.0); Lymphocyte % 16.8 %; Mean Corpuscular HGB Conc 34 g/dL (31-36); Mean Corpuscular Hemoglobin 31 pg (27-31); Mean Corpuscular Volume 91 fL (80-97); Mean Platelet Volume 7.2 fL (7.4-10.4); Nucleated Red Blood Cells % 0.1; Platelet Count 224 10^3/uL (150-450); Red Blood Count 4.01 10^6 /uL (3.70-4.87); Red Cell Distribution Width 18 % (10-15); White Blood Count 4.7 10^3/uL (3.5-10.8)
[2020-12-30 11:59] LABS: Calcium 9.2 mg/dL (8.6-10.3); EGFR African American 181.1 (>60); EGFR Non-African American 149.7 (>60); Potassium 3.2 mmol/L (3.5-5.0)
[2020-12-30] MEDS ORDERED: NS 0.9% 1000 ml BAG 1,000 ML IV SCH (13:30)
[2020-12-30 13:49] LABS: Magnesium 1.8 mg/dL (1.9-2.7)
[2020-12-30] MEDS: KCL 10 MEQ/50 ML IVPREMIX 10 MEQ/50 ML BAG IV SCH ×3 (13:56→18:29)
[2020-12-30] MEDS ORDERED: Magnesium Hydroxide LIQ 30 ML UDC PO PRN (16:38)
[2020-12-30] MEDS: Senna TAB 8.6 mg TAB PO SCH (20:29)
[2020-12-30] MEDS: Polyethylene Glycol 3350 17 GM PACKET PO SCH (20:29)
[2020-12-30] MEDS: Docusate LIQ 100 MG/10 ML UDC PO SCH (20:30)
[2020-12-30] MEDS: OLAPARIB 150 MG PO SCH (20:35)
[2020-12-31 04:22] LABS: ABS Lymphocytes 0.8 10^3/ul (1.0-4.8); ABS Monocytes 0.7 10^3/ul (0-0.8); ABS Neutrophils 3.4 10^3/ul (1.5-7.7); Eosinophil % 0.5 %; Hematocrit 35 % (35-47); Hemoglobin 11.8 g/dL (12.0-16.0); Lymphocyte % 15.8 %; Mean Corpuscular HGB Conc 33 g/dL (31-36); Mean Corpuscular Hemoglobin 31 pg (27-31); Mean Corpuscular Volume 93 fL (80-97); Mean Platelet Volume 6.9 fL (7.4-10.4); Platelet Count 195 10^3/uL (150-450); Red Cell Distribution Width 18 % (10-15)
[2020-12-31 04:36] LABS: Calcium 8.4 mg/dL (8.6-10.3); EGFR African American 176.7 (>60); Potassium 3.4 mmol/L (3.5-5.0)
[2020-12-31] MEDS: Senna TAB 8.6 mg TAB PO SCH ×2 (08:39→21:16)
[2020-12-31] MEDS: Polyethylene Glycol 3350 17 GM PACKET PO SCH ×2 (08:40→21:16)
[2020-12-31] MEDS: Docusate LIQ 100 MG/10 ML UDC PO SCH ×2 (08:40→21:16)
[2020-12-31] MEDS: OLAPARIB 150 MG PO SCH ×2 (08:50→21:43)
[2020-12-31] MEDS: Potassium Chlor 20 meq TAB.ER PO SCH (10:05)
[2020-12-31 15:06] LABS: Urine Appearance Clear; Urine Bilirubin Negative (Negative); Urine Blood Negative (Negative); Urine Color Straw; Urine Glucose Negative (Negative); Urine Ketones 1+ (Negative); Urine Nitrite Negative (Negative); Urine Protein Negative (Negative); Urine Specific Gravity 1.008 (1.002-1.030); Urine Urobilinogen Negative (Negative)
[2020-12-31] MEDS: Ondansetron 4 mg VIAL 2 MG/ML 2 ml VIAL IV PRN (21:15)
[2021-01-01] MEDS: Senna TAB 8.6 mg TAB PO SCH ×2 (08:04→21:07)
[2021-01-01] MEDS: Polyethylene Glycol 3350 17 GM PACKET PO SCH ×2 (08:04→21:06)
[2021-01-01] MEDS: Docusate LIQ 100 MG/10 ML UDC PO SCH ×2 (08:04→21:06)
[2021-01-01] MEDS: Potassium Chlor 20 meq TAB.ER PO SCH (08:05)
[2021-01-01] MEDS: OLAPARIB 150 MG PO SCH ×2 (08:06→21:08)
[2021-01-01 12:12] LABS: Albumin 3.2 g/dL (3.2-5.2); Albumin/Globulin Ratio 1.1 (1-3); Calcium 8.9 mg/dL (8.6-10.3); EGFR African American 150.5 (>60); EGFR Non-African American 124.4 (>60); Globulin 2.8 g/dL (2-4); Potassium 3.4 mmol/L (3.5-5.0); Total Bilirubin 0.5 mg/dL (0.2-1.0)
[2021-01-02 05:48] LABS: ABS Lymphocytes 0.7 10^3/ul (1.0-4.8); ABS Monocytes 0.7 10^3/ul (0-0.8); ABS Neutrophils 4.1 10^3/ul (1.5-7.7); Eosinophil % 0.7 %; Hematocrit 36 % (35-47); Hemoglobin 12.2 g/dL (12.0-16.0); Mean Corpuscular HGB Conc 34 g/dL (31-36); Mean Corpuscular Hemoglobin 31 pg (27-31); Mean Corpuscular Volume 92 fL (80-97); Mean Platelet Volume 7.1 fL (7.4-10.4); Nucleated Red Blood Cells % 0.1; Platelet Count 207 10^3/uL (150-450); Red Cell Distribution Width 18 % (10-15); White Blood Count 5.6 10^3/uL (3.5-10.8)
[2021-01-02 05:54] LABS: Urine Appearance Clear; Urine Bilirubin Negative (Negative); Urine Blood Negative (Negative); Urine Color Yellow; Urine Glucose Negative (Negative); Urine Ketones 1+ (Negative); Urine Nitrite Negative (Negative); Urine Protein Negative (Negative); Urine Specific Gravity 1.015 (1.002-1.030); Urine Urobilinogen Negative (Negative)
[2021-01-02 06:33] LABS: Calcium 8.9 mg/dL (8.6-10.3); EGFR African American 143.6 (>60); EGFR Non-African American 118.7 (>60); Globulin 2.9 g/dL (2-4); Potassium 3.3 mmol/L (3.5-5.0); Total Bilirubin 0.5 mg/dL (0.2-1.0); Total Protein 5.9 g/dL (6.4-8.9)
[2021-01-02] MEDS: OLAPARIB 150 MG PO SCH ×2 (07:52→21:28)
[2021-01-02] MEDS: Polyethylene Glycol 3350 17 GM PACKET PO SCH ×2 (07:52→21:17)
[2021-01-02] MEDS: Docusate LIQ 100 MG/10 ML UDC PO SCH ×2 (07:52→21:16)
[2021-01-02] MEDS: Senna TAB 8.6 mg TAB PO SCH ×2 (07:53→21:17)
[2021-01-02] MEDS: Potassium Chlor 20 meq TAB.ER PO SCH (07:53)
[2021-01-02] MEDS: fentaNYL PATCH 25 MCG/HR 1 PATCH TRANSDERM SCH (11:20)
[2021-01-02 12:01] LABS: Magnesium 1.8 mg/dL (1.9-2.7)
[2021-01-02] MEDS: fentaNYL Patch Check Q Shift NOTE FOLLOW UP SCH (19:17)
[2021-01-02] MEDS: levETIRAcetam LIQ 500 MG/5 ML UDC PO SCH (21:17)
[2021-01-02] MEDS: NS 0.9% 1,000 ML IV SCH (23:44)
[2021-01-03] MEDS: fentaNYL Patch Check Q Shift NOTE FOLLOW UP SCH ×2 (05:46→20:46)
[2021-01-03] MEDS: Senna TAB 8.6 mg TAB PO SCH ×2 (09:19→20:39)
[2021-01-03] MEDS: levETIRAcetam LIQ 500 MG/5 ML UDC PO SCH (09:23)
[2021-01-03] MEDS: OLAPARIB 150 MG PO SCH ×2 (09:24→20:39)
[2021-01-03] MEDS: Potassium Chlor 20 meq TAB.ER PO SCH (09:24)
[2021-01-03] MEDS: Docusate LIQ 100 MG/10 ML UDC PO SCH ×2 (09:33→20:39)
[2021-01-03] MEDS: Polyethylene Glycol 3350 17 GM PACKET PO SCH ×2 (09:34→20:39)
[2021-01-03] MEDS: NS 0.9% 1,000 ML IV SCH ×2 (10:25→20:46)
[2021-01-03] MEDS: levETIRAcetam 500 MG/100 ML IV SCH (20:38)
[2021-01-04 05:12] LABS: ABS Lymphocytes 0.7 10^3/ul (1.0-4.8); ABS Monocytes 0.6 10^3/ul (0-0.8); ABS Neutrophils 3.6 10^3/ul (1.5-7.7); Eosinophil % 0.7 %; Hematocrit 35 % (35-47); Hemoglobin 11.5 g/dL (12.0-16.0); Lymphocyte % 13.8 %; Mean Corpuscular HGB Conc 33 g/dL (31-36); Mean Corpuscular Hemoglobin 31 pg (27-31); Mean Corpuscular Volume 93 fL (80-97); Mean Platelet Volume 7.4 fL (7.4-10.4); Nucleated Red Blood Cells % 0.2; Platelet Count 204 10^3/uL (150-450); Red Blood Count 3.71 10^6 /uL (3.70-4.87); Red Cell Distribution Width 18 % (10-15)
[2021-01-04 05:21] LABS: Albumin/Globulin Ratio 1.1 (1-3); Calcium 8.5 mg/dL (8.6-10.3); EGFR African American 167.6 (>60); EGFR Non-African American 138.5 (>60); Globulin 2.8 g/dL (2-4); Magnesium 1.9 mg/dL (1.9-2.7); Potassium 3.3 mmol/L (3.5-5.0); Total Bilirubin 0.4 mg/dL (0.2-1.0); Total Protein 5.8 g/dL (6.4-8.9)
[2021-01-04] MEDS: NS 0.9% 1,000 ML IV SCH ×2 (06:05→18:03)
[2021-01-04] MEDS: fentaNYL Patch Check Q Shift NOTE FOLLOW UP SCH ×2 (07:10→19:13)
[2021-01-04] MEDS: OLAPARIB 150 MG PO SCH ×2 (08:50→21:37)
[2021-01-04] MEDS: Polyethylene Glycol 3350 17 GM PACKET PO SCH ×2 (08:50→21:36)
[2021-01-04] MEDS: Docusate LIQ 100 MG/10 ML UDC PO SCH ×2 (08:50→21:35)
[2021-01-04] MEDS: Potassium Chlor 20 meq TAB.ER PO SCH (08:50)
[2021-01-04] MEDS: Senna TAB 8.6 mg TAB PO SCH ×2 (08:51→21:36)
[2021-01-04] MEDS: levETIRAcetam 500 MG/100 ML IV SCH ×2 (09:00→21:36)
[2021-01-05] MEDS: NS 0.9% 1,000 ML IV SCH ×2 (04:36→16:42)
[2021-01-05] MEDS: fentaNYL Patch Check Q Shift NOTE FOLLOW UP SCH ×2 (06:56→19:03)
[2021-01-05] MEDS: Docusate LIQ 100 MG/10 ML UDC PO SCH ×2 (07:32→21:07)
[2021-01-05] MEDS: Polyethylene Glycol 3350 17 GM PACKET PO SCH ×2 (07:33→21:08)
[2021-01-05] MEDS: Potassium Chlor 20 meq TAB.ER PO SCH (07:33)
[2021-01-05] MEDS: Senna TAB 8.6 mg TAB PO SCH ×2 (07:33→21:09)
[2021-01-05] MEDS: OLAPARIB 150 MG PO SCH ×2 (07:33→21:07)
[2021-01-05] MEDS ORDERED: Lorazepam PYXIS KEY PRN (09:06)
[2021-01-05] MEDS: fentaNYL PATCH 25 MCG/HR 1 PATCH TRANSDERM SCH (09:22)
[2021-01-05] MEDS: levETIRAcetam 500 MG/100 ML IV SCH ×2 (09:25→21:03)
[2021-01-05] MEDS: LORazepam 2 mg VIAL 1 ml IV PUSH PRN (17:07)
[2021-01-05] MEDS ORDERED: fentaNYL PATCH 50 MCG/HR 1 PATCH TRANSDERM SCH (18:00)
[2021-01-06] MEDS: NS 0.9% 1,000 ML IV SCH (03:04)
[2021-01-06] MEDS: fentaNYL Patch Check Q Shift NOTE FOLLOW UP SCH ×2 (06:53→19:08)
[2021-01-06] MEDS: LORazepam 2 mg VIAL 1 ml IV PUSH PRN ×2 (07:15→12:26)
[2021-01-06] MEDS: Docusate LIQ 100 MG/10 ML UDC PO SCH (07:48)
[2021-01-06] MEDS: Polyethylene Glycol 3350 17 GM PACKET PO SCH (07:48)
[2021-01-06] MEDS: OLAPARIB 150 MG PO SCH (07:48)
[2021-01-06] MEDS: Potassium Chlor 20 meq TAB.ER PO SCH (07:49)
[2021-01-06] MEDS: Senna TAB 8.6 mg TAB PO SCH (07:49)
[2021-01-06] MEDS: levETIRAcetam 500 MG/100 ML IV SCH ×2 (07:56→20:58)
[2021-01-06] MEDS ORDERED: fentaNYL PATCH 75 MCG/HR 1 PATCH TRANSDERM SCH (10:00)
[2021-01-06] MEDS ORDERED: NS 0.9% 1000 ml BAG 1,000 ML IV SCH ×2 (10:00→18:06)
[2021-01-06] MEDS: Morphine ORAL CONCENTRATE 5 MG/0.25 ML ORAL.SYRIN SL PRN ×3 (10:27→15:42)
[2021-01-06] MEDS: Ondansetron 4 mg VIAL 2 MG/ML 2 ml VIAL IV PRN (11:08)
[2021-01-06 12:12] VITALS: BP 118/99
[2021-01-06] MEDS: Morphine 10 MG/ML VIAL (1 ml) IV PRN (19:23)
[2021-01-07] MEDS: Morphine 10 MG/ML VIAL (1 ml) IV PRN ×7 (01:49→23:25)
[2021-01-07] MEDS: fentaNYL Patch Check Q Shift NOTE FOLLOW UP SCH ×2 (07:04→19:05)
[2021-01-07] MEDS: Ondansetron 4 mg VIAL 2 MG/ML 2 ml VIAL IV PRN (07:23)
[2021-01-07] MEDS: LORazepam 2 mg VIAL 1 ml IV PUSH PRN ×2 (08:13→13:51)
[2021-01-07] MEDS: levETIRAcetam 500 MG/100 ML IV SCH ×2 (10:27→20:33)
[2021-01-07] MEDS: Glycopyrrolate IV 0.2 MG/ML 1 ML VIAL IV SLOW PU SCH ×2 (14:37→20:26)
[2021-01-08] MEDS: Morphine 10 MG/ML VIAL (1 ml) IV PRN (01:25)
[2021-01-08] MEDS: Glycopyrrolate IV 0.2 MG/ML 1 ML VIAL IV SLOW PU SCH (02:20)
== END 2021-01-08 03:15 | disposition expired | DRG 640 ==
LOC: ED 10:35 → MED 13:26
PROVIDERS: ADMIT Hospitalist; ATTEND Internal Medicine Hematology & Oncology